=== PATIENT | male | born 1980 | race Caucasian/White ===

== ENCOUNTER 2019-06-22 03:37 | Inpatient (IN) | payer BC, OTHER, SELFPAY ==
[2019-06-22] VITALS (8 sets, daily range): BP systolic 128–160; BP diastolic 63–87; PULSE 97–122; RESP 14–20; TEMP 36.8–39.2; O2SAT 95–97; BMI 27.4
--- NOTE | ~2019-06-22 | CT_ITS ---
EXAMINATION: CT chest wo con DATE: 06/22/2019 04:57 INDICATION: Patient choked on food 2 days ago. Cough. TECHNIQUE: Computed tomography (CT) of the chest was performed without intravenous contrast. Automate d exposure control and iterative reconstruction technique were employed. Exam dose: 277.58 mGy-cm to paola exam DLP. COMPARISON: 06/22/2021 view chest FINDINGS: There is prominent patchy consolidation with air bronchograms at the superior segment left lower lobe primarily, most likely due to pneumonia. No bronchial occlusion is evident. There is minimal discoid atelectasis in the dependent right lower lobe. Normal heart size. No pericardial or pleural effusion. No thoracic aortic aneurysm. No hilar or media stinal mass lesion or lymphadenopathy is evident. Included upper abdominal structures are unremarkable. Included skeletal structures are unremarkable other than mild cupping of the superior vertebral endpl ates of T4 and T5, with minimal anterior wedging of T4, T5 and T6 vertebral bodies. These changes dina ear chronic.. IMPRESSION: Patchy consolidation involving superior segment of left lower lobe, likely due to pneumo naheed Reviewed, dictated and finalized at Location [facility]. Reviewed, dictated and finalized at location A. IVING ROOM CLERK IMPRESSION: Patchy consolidation involving superior segment of left lower lobe , likely due to pneumonia
--- NOTE | ~2019-06-22 | XR_ITS ---
XR chest 2V DATE: 06/22/2019 04:05 INDICATION: Cough TECHNIQUE: PA and lateral views COMPARISON: 02/15/2013 PA and lateral chest FINDINGS: There is patchy infiltrate of the superior segment of the left lower lobe. Follow-up radiog raph is recommended to ensure complete clearing, in order to exclude any pulmonary mass lesion or obs tructing endobronchial lesion. The lungs otherwise appear clear. No pleural effusion or pulmonary vascular congestion or pneumothora x. No hilar or mediastinal enlargement. Normal heart size. Old healed left clavicular shaft fracture deformity. IMPRESSION: Superior segment left lower lobe infiltrate Reviewed, dictated and finalized at location A. [employer]
--- NOTE | 2019-06-22 04:02 | ED.URI ---
HPI - URI/Sore Throat General Chief Complaint: Upper Respiratory Infection Stated Complaint: broccoli in my lungs/cough Time Seen by Provider: 06/22/19 03:47 Source: RN notes reviewed History of Present Illness HPI Narrative: Patient presents emergency department from home for cough and fever. Patient states symptoms began on Wednesday the . Patient states he was eating broccoli when he felt like he choked on the broccoli. Patient states since that time he has developed a temperature up to 103 as well as a persistent cough and body aches. He denies any sore throat, rhinorrhea abdominal pain vomiting or any other symptoms. Patient states he last took Tylenol at 1730 yesterday. He denies any other symptoms at this time Related Data Home Medications Medication Instructions Recorded Confirmed bupropion HCl mg PO 06/22/19 hydroxyzine HCl 06/22/19 Allergies Allergy/AdvReac Type Severity Reaction Status Date / Time No Known Allergies Allergy Verified 06/22/19 04:00 Review of Systems Review of Systems: Narrative: Gen.: Reports fever Eyes: Denies eye pain or visual change ENT: Denies congestion Respiratory: See HPI CV: Denies chest pain or palpitations GI: Denies abdominal pain nausea, emesis or diarrhea Musculoskeletal: Denies back pain or muscle pain Neuro: Denies numbness, tingling, weakness or focal weakness Skin: Denies rash Except as documented, all other systems reviewed and negative [facility] Past Medical History Medical History (Updated 06/22/19 @ 05:50 by Eugene Paez DO) Hypertension Family History Family History (Updated 06/11/16 @ 14:29 by DOCTOR UNKNOWN) Mother Family history of thyroid disease Family history of mental disorder Father Family history of cardiac disorder Other Carcinoma of colon Diabetes mellitus Family history of lung disease Family history of malignant neoplasm Hypertension Social History Social History Smoking status: Former smoker Second hand tobacco smoke exposure: Yes Smoking end date: 05/24/15 Alcohol intake: current Exam Narrative: Exam Narrative: APPEARANCE: No acute distress, nontoxic, resting in bed EYES: EOMI HEENT: Normocephalic, atraumatic, TMs clear bilaterally, nares patent, oral mucosa moist, no erythema or exudate posterior pharynx RESPIRATORY: No respiratory distress Clear to auscultation bilaterally with no rhonchi wheezing or rales. CARDIOVASCULAR: Regular rate and rhythm without murmurs rubs or gallops. ABDOMINAL: Soft, nontender, nondistended, no rebound or guarding MUSCULOSKELETAl: Moves all extremities. No clubbing, cyanosis or edema. NEURO: Awake and alert. Following commands, speech normal, no focal deficits SKIN:: Warm, dry. No rashes lesions or abrasions PSYCHIATRIC: Normal affect/mood, Course Course Emergency Course: Discussed with Dr. Vinson presentation work-up. Agrees with admission at this time Discussed with patient and family results of workup and diagnosis. Discussed need for admission. Patient and family understand and agree to current treatment plan Vital Signs Vital signs: Vital Signs Temperature 102.6 F H 06/22/19 03:53 Pulse Rate 122 H 06/22/19 03:53 Respiratory Rate 18 06/22/19 03:53 Blood Pressure 160/87 H 06/22/19 03:53 Pulse Oximetry 97 06/22/19 03:53 Temperature 101.2 F H 06/22/19 05:10 Pulse Rate 102 H 06/22/19 05:10 Respiratory Rate 14 06/22/19 05:10 Blood Pressure 134/70 06/22/19 05:10 Pulse Oximetry 95 06/22/19 05:10 MDM - URI/Sore Throat Lab Data Result diagrams: 06/22/19 04:17 06/22/19 04:17 Labs: Lab Results 06/22/19 06/22/19 06/22/19 Range/Units 04:17 04:17 04:17 WBC 9.2 (4.5-10.0) K/mm3 RBC 4.73 (4.6-6.20) M/mm3 Hgb 14.8 (14.0-18.0) g/dL Hct 43.0 (42.0-52.0) % MCV 90.9 (80-100) fl MCH 31.3 (26-34) pg MCHC 34.4 (32-
[2019-06-22] MEDS: LACTATED RINGERS 1,000 ML 999 ML IV CONT (04:24)
[2019-06-22 04:28] LABS: Basophils Absolute Auto 0.1 K/mm3 (0.0-0.1); Basophils Percent Auto 0.5 % (0.2-1.2); Eosinophils Absolute Auto 0.1 K/mm3 (0-0.3); Eosinophils Percent Auto 1.1 % (0-4.4); Hemoglobin 14.8 g/dL (14.0-18.0); Immature Granulocyte Absolute 0.03 K/mm3 (0.00-0.031); Immature Granulocyte Percent A 0.3 % (0-0.5); Lymphocytes Absolute Auto 1.17 K/mm3 (0.9-3.2); Lymphocytes Percent Auto 12.7 % (18.3-44.2); Mean Corpuscular HGB Conc 34.4 g/dl (32-36); Mean Corpuscular Hemoglobin 31.3 pg (26-34); Mean Corpuscular Volume 90.9 fl (80-100); Mean Platelet Volume 11.4 fl (7.4-10.4); Monocytes Absolute Auto 0.9 K/mm3 (0.1-0.6); Monocytes Percent Auto 9.8 % (2.6-8.5); Neutrophils Percent Auto 75.6 % (45.5-73.1); Platelet Count Result 152 k/mm3 (150-375); Red Blood Count 4.73 M/mm3 (4.6-6.20); White Blood Count 9.2 K/mm3 (4.5-10.0)
[2019-06-22 04:41] LABS: Alanine Aminotransferase 27 U/L (4-50); Albumin Level 4.7 g/dL (3.5-5.1); Alkaline Phosphatase 77 U/L (38-126); Aspartate Amino Transferase 25 U/L (17-59); Bilirubin,Total 0.5 mg/dL (0.2-1.3); Blood Urea Nitrogen 10 mg/dL (9-20); Calcium 9.3 mg/dL (8.4-10.2); Carbon Dioxide 27 mmol/L (22-30); Chloride 99 mmol/L (98-107); Estimated CRCL calculation 70 ml/min; Estimated Glomerular Filt Rate 57; Glucose 114 mg/dL (75-110); Potassium 3.7 mmol/L (3.4-5.0); Sodium 136 mmol/L (137-145)
[2019-06-22 04:42] LABS: Add Urine Microscopic? YES; Appearance Urine Clear (Clear); Bilirubin Urine Negative (Negative); Blood Urine 1+ (Negative); Color Urine Yellow (Yellow); Glucose Urine UA Negative (Negative); Ketones Urine Trace mg/dL (Negative); Leukocyte Esterase Ur Negative LEU/UL (Negative); Mucus Urine Rare /lpf; Nitrate Urine Negative (Negative); Protein Urine 2+ mg/dL (Negative); Specific Grav Ur 1.024 (1.001-1.035); Urobilinogen Urine Negative mg/dL (<2.0); WBC Urine 0-3 /hpf
[2019-06-22 04:50] LABS: Lactic Acid Reflex 0.9 mmol/L (0.7-2.1)
[2019-06-22] MEDS: metroNIDAZOLE 500 MG/ISO 100ML 500 MG/100 ML BAG 100 MG IVPB (06:14)
[2019-06-22] MEDS: SODIUM CHLORIDE 0.9% IV 1,000 ML 999 ML IV CONT (06:14)
--- NOTE | 2019-06-22 06:28 | ADMGEN ---
This patient, Miguel Aguilar, was admitted to 3 [facility] Surg Room 313-01. Patient/family oriented to hospital policies and general routines including ID bracelet, bed and alarms, visiting hours, pain management, procedures, bathroom and other care routines, personal items, smoking policy, room service/diet, and visiting hours. Valuables list has been completed. Information on how to activate the Rapid Response Team has been discussed. Patient/Family are encouraged to report perceived risks to care and to ask questions if they do not understand what they are told or what they should do.
--- NOTE | 2019-06-22 09:17 | PM.IMHP ---
H&P: HPI History of Present Illness Chief complaint: PNEUMONIA SUSPECT AASPIRATION,SEPSIS,RENAL INSUFFI Narrative: Date and Time of Service of History & Physical: June 22, 2019 at 8:55 a.m.. Date and Time of Placement in Observation Order: June 22, 2019 at 5:47 a.m. Chief Complaint: Fever, chills, body aches, pain in area of kidneys, cough. History of Present Illness: Miguel Aguilar is a 38 year old male with known PTSD, hyperlipidemia, hypertension and allergies to present to the emergency room early this morning with complaint of 2 day history of fever, chills, body aches and pain in the kidney area. Patient reports he had been feeling well until he felt as though he possibly aspirated either some broccoli or cauliflower during lunch on Wednesday, June 19, 2019 patient was at work when this occurred. He reports on Wednesday at noon he developed fever up to 102.5 with chills and sweats, body aches and pain in the kidney area. He denies any other urinary type symptoms. He reports he has also developed cough which is now productive of mucus. On patient's son recently did have diagnosis of influenza B but is improving. His daughters are healthy. He has had his influenza vaccine. No shortness of breath he does have tightness in his chest. He does report nausea last night but no vomiting. In the emergency room, findings were consistent with pneumonia with concern for possible aspiration pneumonia. He was also noted to have slight increase in creatinine. Patient does mention he began drinking more after noting the pain as kidney area. With his findings, he has been placed in observation for further evaluation and treatment. Review of Systems Review of Systems: All systems reviewed & are unremarkable except as noted in HPI and below Constitutional: Constitutional: Reports body ache(s), Reports chills and Reports fever(s) Eyes: Eyes: Denies blurry vision and Denies diplopia ENT: Denies nasal congestion, Denies nasal discharge and Denies sore throat Cardiovascular: Cardiovascular: Denies chest pain and Denies palpitations Respiratory: Respiratory: Reports chest congestion, Reports cough, Denies dyspnea and Denies wheezing Gastrointestinal: Gastrointestinal: Denies abdominal pain, Reports nausea and Denies vomiting Genitourinary: Genitourinary: Denies hematuria, Denies dysuria and Denies urinary frequency Musculoskeletal: Musculoskeletal: Reports myalgias Integumentary/Breasts: Skin/Breast: Denies rash Neurologic: Denies vertigo, Denies headache(s) and Denies numbness Psychiatric: Psychiatric: Reports anxiety (known PTSD) and Denies depression Endocrine: Endocrine: Reports no additional endocrine complaints Hematologic/Lymphatic: Hematologic/Lymphatic: Reports no additional hematologic/lymphatic complaints Allergic/Immunologic: Allergic/Immunologic: Reports no additional allergic/immunologic complaints PMFSH Past Medical History Medical History (Updated 06/22/19 @ 09:55 by Ashanti Cochran MD) Allergies Hyperlipidemia Hypertension PTSD (post-traumatic stress disorder) Surgical History Surgical History No significant past surgical history reports left hand/left finger injury Family History Family History Mother Family history of thyroid disease Hypertension Anxiety Father Family history of cardiac disorder aortic valve replacement Sibling Anxiety Social History Social History Social History: Patient is . 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 He smoked 1/2 to 2 packs of cigarettes daily between ages of [age]. Subsequently he did chew tobacco quitting 2 years ago and restarting and recently quitting again. He
[2019-06-22] MEDS: LACTATED RINGERS 1,000 ML 75 ML IV CONT (09:38)
--- NOTE | 2019-06-22 10:45 | PCRCNOTE ---
Window of time for administration has passed. See next scheduled administration.
[2019-06-22] MEDS: hydrOXYzine HCL 25 MG TABLET PO (11:20)
[2019-06-22] MEDS: ASPIRIN 81 MG ENTERIC TABLET PO (11:20)
[2019-06-22] MEDS: buPROPion HCL XL (24 HR) 150 MG TABCR 450 MG PO (11:20)
[2019-06-22] MEDS: FLUTICASONE PROPIONATE 0.05% NA SPR 16 GM BTL (*BKC) 1 SPRAY NASAL (11:20)
[2019-06-22] MEDS: IBUPROFEN 600 MG TABLET PO ×2 (11:21→16:56)
[2019-06-22] MEDS: ALBUTEROL SULFATE NEB 2.5 MG/0.5 ML INH 5 MG INHALATION (14:12)
[2019-06-22] MEDS: IPRATROPIUM BR 0.02% INH SOLN 0.5 MG/2.5 ML VIAL INHALATION (14:13)
[2019-06-22 16:59] LABS: Blood Urea Nitrogen 11 mg/dL (9-20); Calcium 8.8 mg/dL (8.4-10.2); Carbon Dioxide 26 mmol/L (22-30); Chloride 101 mmol/L (98-107); Estimated CRCL calculation 81 ml/min; Estimated Glomerular Filt Rate > 60; Glucose 98 mg/dL (75-110); Potassium 3.5 mmol/L (3.4-5.0); Sodium 135 mmol/L (137-145)
--- NOTE | 2019-06-22 18:30 | PM.DS ---
DS: Diagnosis Admitting Diagnosis Admitting Diagnosis: Sepsis, unspecified organism Discharge Diagnosis (1) Sepsis: Qualifiers: Sepsis acute organ dysfunction status: unspecified Sepsis type: sepsis due to unspecified organism Qualified Code(s): A41.9 - Sepsis, unspecified organism Code(s): A41.9 - Sepsis, unspecified organism Status: Acute (2) Aspiration pneumonia: Qualifiers: Aspiration pneumonia type: unspecified Laterality: left Lung location: lower lobe of lung Qualified Code(s): J69.0 - Pneumonitis due to inhalation of food and vomit Code(s): J69.0 - Pneumonitis due to inhalation of food and vomit Status: Acute (3) Acute renal failure: Qualifiers: Acute renal failure type: unspecified Qualified Code(s): N17.9 - Acute kidney failure, unspecified Code(s): N17.9 - Acute kidney failure, unspecified Status: Acute (4) Dehydration: Code(s): E86.0 - Dehydration Status: Acute (5) PTSD (post-traumatic stress disorder): Code(s): F43.10 - Post-traumatic stress disorder, unspecified Status: Acute (6) Hyperlipidemia: Qualifiers: Hyperlipidemia type: unspecified Qualified Code(s): E78.5 - Hyperlipidemia, unspecified Code(s): E78.5 - Hyperlipidemia, unspecified Status: Acute (7) Hypertension: Qualifiers: Hypertension type: essential hypertension Qualified Code(s): I10 - Essential (primary) hypertension Code(s): I10 - Essential (primary) hypertension Status: Acute DS: Summary Hospital Course Reason for hospitalization: Fever, chills, body aches, pain in area of kidneys, cough. Hospital Course: Date of Service of Discharge: June 22, 2019. History of Present Illness: Patient is a pleasant 38-year-old gentleman with known PTSD, hyperlipidemia, hypertension and allergies present to the emergency room via private vehicle early this morning with complaint of 2 day history of fever, chills, body aches and pain in the kidney area. He reports he had been feeling well until he felt as though he may have aspirated either some broccoli or cauliflower while eating his lunch at work on Wednesday, June 19, 2019. He subsequently noted fever up to 102.5 at noon on Thursday, June 20, 2019. He reports having chills and sweats, body aches, pain in the kidney area. He is now also developed cough which is productive of mucus. No other urinary symptoms. No nausea or vomiting. He did have his influenza vaccine. He does report his young son was recently diagnosed with influenza B but already improving. In the emergency room, he was found to have pneumonia with concern for aspiration pneumonia due to his incident on Wednesday. He did technically meet sepsis criteria and also had dehydration resulting in mild renal failure. As result, he was admitted for further evaluation and treatment. Course in Hospital: Patient was admitted to the medical floor where he remained for the duration of his stay. He did not require oxygen throughout his stay. He initially had fever but none after approximately 6:00 a.m. on the day of admission. He did have cough but not severe. Lung exam with slight decrease in breath sounds in the left lower lobe but otherwise clear. He had no wheezing. He was initially started on IV ceftriaxone and metronidazole through the emergency room but this was changed to IV Zosyn which she received throughout the day on 06/22/2019. He additionally was started on IV fluids with oral intake encouraged. Blood cultures were initiated in the emergency room. WBC was normal on admission. Initial creatinine was slightly elevated at 1.40 which was the result of dehydration. On re-evaluation the patient late on the afternoon of 06/22/2019, he was clinically for feeling much better and hopeful to go home. As result, BMP was repeated with creatinine improved to 1.20. Patient able to hydrate on his o
== END 2019-06-22 18:40 | disposition home or self-care (01) | DRG 871 ==
LOC: ANHED 05:50 → ANH3MEDSUR 05:54
PROVIDERS: Admitting Provider Internal Medicine; Emergency Provider Emergency Medicine; Visit Provider Hospitalist
DX: A41.9 Sepsis, unspecified organism (principal); J69.0 Pneumonitis due to inhalation of food and vomit; N17.9 Acute kidney failure, unspecified; E86.0 Dehydration; F43.10 Post-traumatic stress disorder, unspecified; E78.5 Hyperlipidemia, unspecified; I10 Essential (primary) hypertension
CPT/HCPCS: 36415; 71046; 71250; 80048; 80053; 81001; 83605; 85025; 87040; 87804; 94640; 96361; 96365; 96367; 96375; 99285; A9270; G0378; J0131; J0696; J2543; J7030; J7120

== ENCOUNTER 2021-11-10 09:52 | Emergency (ER) | payer OTHER, SELFPAY ==
--- NOTE | ~2021-11-10 | XR_ITS ---
EXAMINATION: XR ankle LT min 3V, XR heel LT min 2V DATE: 11/10/2021 10:15 INDICATION: Pain and bruising to the left heel and ankle post fall from ladder TECHNIQUE: 1.Anteroposterior, oblique, mortise, and lateral views of the left ankle were obtained. 2. Lateral and axial views of the left calcaneus were obtained. COMPARISON: None. FINDINGS: Alignment is normal. No fracture. Joint spaces are well maintained. No ankle joint effusion. Mild s oft tissue swelling about the lateral malleolus. There is also an ankle joint effusion with increased density bulging anteriorly from the tibiotalar joint line. IMPRESSION: 1. Left ankle joint effusion and soft tissue swelling about the lateral malleolus. No osseous abnorma lity at the left ankle or hindfoot. Reviewed, dictated and finalized at location B. IMPRESSION: 1. Left ankle joint effusion and soft tissue swelling about the lateral malleol us. No osseous abnormality at the left ankle or hindfoot.
[2021-11-10 09:57] VITALS: BP 140/95; PULSE 107; RESP 20; TEMP 36.7; O2SAT 96
--- NOTE | 2021-11-10 09:59 | ED.FALL ---
HPI - Fall General Chief Complaint: Extremity Injury, Lower Stated Complaint: ankle pain s/p fall from ladder Time Seen by Provider: 11/10/21 09:54 Source: RN notes reviewed History of Present Illness HPI Narrative: Patient presents emerged department from home for left ankle pain. Patient states that yesterday morning he was working on a ladder approximately 5 feet up when he became tripped up in the ladder and fell off the ladder. He states that all of his weight came down onto his left ankle he states has had pain in his left ankle as well as his heel since that time he denies striking her head or loss conscious denies any other trauma or injury states he took ibuprofen the pain last night denies any numbness or tingling in extremities Related Data Home Medications Medication Instructions Recorded Confirmed aspirin 81 mg tablet,delayed 81 mg PO DAILY 06/22/19 06/22/19 release (Adult Low Dose Aspirin) bupropion HCl 150 mg 24 hr tablet, 450 mg PO DAILY 06/22/19 06/22/19 extended release fluticasone propionate 50 1 spray intranasal BID 06/22/19 06/22/19 mcg/actuation nasal spray,suspension hydroxyzine HCl 25 mg tablet 25 mg PO DAILY ANXIETY 06/22/19 06/22/19 hydroxyzine HCl 25 mg tablet 25 mg PO TIDHS PRN Anxiety 06/22/19 06/22/19 olanzapine 10 mg tablet 2.5 mg PO HS ptsd 06/22/19 06/22/19 Allergies Allergy/AdvReac Type Severity Reaction Status Date / Time No Known Allergies Allergy Verified 06/22/19 06:40 Review of Systems Review of Systems: Gen.: Denies fevers or chills Eyes: Denies eye pain or visual change ENT: Denies facial pain Respiratory: Denies shortness of breath CV: Denies chest pain GI: Denies abdominal pain nausea, emesis Musculoskeletal: Denies back pain or muscle pain reports ankle pain Neuro: Denies numbness, tingling, weakness or focal weakness Skin: Denies rash Except as documented, all other systems reviewed and negative PMFSH Past Medical History Medical History Allergies Hyperlipidemia Hypertension PTSD (post-traumatic stress disorder) Surgical History Surgical History No significant past surgical history reports left hand/left finger injury Family History Family History Mother Family history of thyroid disease Hypertension Anxiety Father Family history of cardiac disorder aortic valve replacement Sibling Anxiety Social History Social History Social History: Patient is . 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 He smoked 1/2 to 2 packs of cigarettes daily between ages of [age]. Subsequently he did chew tobacco quitting 2 years ago and restarting and recently quitting again. He does report drinking either beer or whiskey 2-3 times per week. He is a full code. He does have 3 small children. 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
== END 2021-11-10 11:43 | disposition home or self-care (01) ==
PROVIDERS: Emergency Provider Emergency Medicine
DX: S93.402A Sprain of unspecified ligament of left ankle, initial encounter (principal); E78.5 Hyperlipidemia, unspecified; I10 Essential (primary) hypertension; Z79.82 Long term (current) use of aspirin; F43.10 Post-traumatic stress disorder, unspecified; Z87.891 Personal history of nicotine dependence; W11.XXXA Fall on and from ladder, initial encounter
CPT/HCPCS: 73610; 73650; 99283

== ENCOUNTER 2022-08-06 01:14 | Emergency (ER) | payer OTHER, SELFPAY ==
[2022-08-06] VITALS (14 sets, daily range): BP systolic 136–1667; BP diastolic 12–101; PULSE 69–102; RESP 9–30; TEMP 36.9; O2SAT 93–100
--- NOTE | ~2022-08-06 | XR_ITS ---
Clinical Indication: Chest pain PA and lateral views of the chest: Comparison: 06/22/2019 Findings: The lungs are clear, without evidence of focal consolidation or pleural effusion. Cardiome diastinal silhouette is within normal limits. Bones and soft tissues are unremarkable. Impression: Normal chest. Reviewed, dictated and finalized at location . Impression: Normal chest.
--- NOTE | 2022-08-06 01:18 | ECG_ITS ---
Measurements Intervals [place] Rate: 97 P: 68 VA: 168 QRS: 81 QRSD: 106 T: 17 QT: 306 QTc: 389 Interpretive Statements SINUS RHYTHM DELAYED PRECORDIAL R/S TRANSITION NONSPECIFIC ST & T-WAVE ABNORMALITY- INFERIOR LEADS BASELINE ARTIFACT- I, II, III BORDERLINE ECG NO PREVIOUS ECG AVAILABLE FOR COMPARISON Electronically Signed On 08-06-2022 8:05:49 CDT by Manuel Thakur D.O.
[2022-08-06 01:35] LABS: Basophils Absolute Auto 0.1 K/mm3 (0.0-0.1); Basophils Percent Auto 0.8 % (0.2-1.2); Eosinophils Absolute Auto 0.5 K/mm3 (0-0.3); Eosinophils Percent Auto 4.5 % (0-4.4); Hematocrit 48.6 % (42.0-52.0); Hemoglobin 16.8 g/dL (14.0-18.0); Immature Granulocyte Absolute 0.05 K/mm3 (0.00-0.031); Immature Granulocyte Percent A 0.5 % (0-0.5); Lymphocytes Absolute Auto 3.76 K/mm3 (0.9-3.2); Lymphocytes Percent Auto 35.5 % (18.3-44.2); Mean Corpuscular HGB Conc 34.6 g/dl (32-36); Mean Corpuscular Hemoglobin 33.3 pg (26-34); Mean Corpuscular Volume 96.2 fl (80-100); Mean Platelet Volume 10.8 fl (7.4-10.4); Monocytes Percent Auto 9.8 % (2.6-8.5); Neutrophils Absolute Auto 5.2 K/mm3 (1.3-6.7); Neutrophils Percent Auto 48.9 % (45.5-73.1); Platelet Count Result 258 k/mm3 (150-375); Red Blood Count 5.05 M/mm3 (4.6-6.20); Red Cell Distribution Width 13.3 % (11.5-14.5); White Blood Count 10.6 K/mm3 (4.5-10.0)
[2022-08-06 01:46] LABS: Prothrombin Time 12.4 Seconds (11.1-14.7)
[2022-08-06 01:47] LABS: Partial Thromboplastin Time 27.3 SECONDS (22.3-36.8)
[2022-08-06 01:50] LABS: Alanine Aminotransferase 69 U/L (6-50); Albumin Level 4.6 g/dL (3.5-5.1); Alkaline Phosphatase 87 U/L (38-126); Anion Gap 7 mmol/L (8-16); Aspartate Amino Transferase 43 U/L (17-59); Bilirubin,Total 0.6 mg/dL (0.2-1.3); Blood Urea Nitrogen 12 mg/dL (9-20); Calcium 9.1 mg/dL (8.4-10.2); Carbon Dioxide 26 mmol/L (22-30); Chloride 104 mmol/L (98-107); Estimated CRCL calculation 84 ml/min; Estimated Glomerular Filt Rate > 60; Glucose 96 mg/dL (65-110); Lipase 167 U/L (23-300); Potassium 4.2 mmol/L (3.4-5.0); Sodium 137 mmol/L (137-145)
[2022-08-06 02:01] LABS: Troponin I < 0.012 ng/mL (0.000-0.034)
[2022-08-06] MEDS: IBUPROFEN 400 MG TABLET 800 MG PO (02:51)
[2022-08-06] MEDS: ACETAMINOPHEN 500 MG TABLET 1000 MG PO (02:52)
--- NOTE | 2022-08-06 03:32 | ED.GENADULT ---
HPI - General Adult General Chief complaint: Chest Pain Stated complaint: chest pain Time Seen by Provider: 08/06/22 01:48 History of Present Illness HPI narrative: This is a 42-year-old male presenting ED with a chief complaint chest pain. Patient said that when he laid down to bed at approximately midnight he started to feel and achy /dull/ squeezing pain in the center of his chest just left of his sternum that is nonradiating, 4/10 in intensity that comes and goes. Patient says he has never experienced pain like this before there are no exacerbating or alleviating factors. Was associated with some lightheadedness. There is no vomiting diaphoresis exertion radiation component. Patient denies fever chills cough, abdominal pain shortness of breath urinary symptoms or GI symptoms. The patient has significant history with chest pain. He has been diagnosed with pleurisy ,GERD, has undergone a stress test which was normal and had multiple ER visits without a definitive cause. Patient denies any other complaints at this time. Related Data Home Medications Medication Instructions Recorded Confirmed aspirin 81 mg tablet,delayed 81 mg PO DAILY 06/22/19 06/22/19 release (Adult Low Dose Aspirin) bupropion HCl 150 mg 24 hr tablet, 450 mg PO DAILY 06/22/19 06/22/19 extended release fluticasone propionate 50 1 spray intranasal BID 06/22/19 06/22/19 mcg/actuation nasal spray,suspension hydroxyzine HCl 25 mg tablet 25 mg PO DAILY ANXIETY 06/22/19 06/22/19 hydroxyzine HCl 25 mg tablet 25 mg PO TIDHS PRN Anxiety 06/22/19 06/22/19 olanzapine 10 mg tablet 2.5 mg PO HS ptsd 06/22/19 06/22/19 Allergies Allergy/AdvReac Type Severity Reaction Status Date / Time No Known Allergies Allergy Verified 08/06/22 01:28 [facility] Past Medical History Medical History Allergies Hyperlipidemia Hypertension PTSD (post-traumatic stress disorder) Surgical History Surgical History No significant past surgical history reports left hand/left finger injury Family History Family History Mother Family history of thyroid disease Hypertension Anxiety Father Family history of cardiac disorder aortic valve replacement Sibling Anxiety Social History Social History Social History: Patient is . 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 He smoked 1/2 to 2 packs of cigarettes daily between ages of [age]. Subsequently he did chew tobacco quitting 2 years ago and restarting and recently quitting again. He does report drinking either beer or whiskey 2-3 times per week. He is a full code. He does have 3 small children. 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 Head: atraumatic. EYES: EOMI, NOSE: Atraumatic NECK: Trachea midline RESPIRATORY: No increased rate of breathing clear to auscultation bilaterally CARDIOVASCULAR: RRR, no peripheral edema ABDOMINAL: Non-distended soft no guarding or rebound MUSCULOSKELETAl: No obvious deformities NEURO: Alert. Moving 4/4 extremities SKIN:: Warm, dry. Normal color PSYCHIATRIC: N
[2022-08-06 05:06] LABS: Troponin I < 0.012 ng/mL (0.000-0.034)
== END 2022-08-06 05:18 | disposition home or self-care (01) ==
PROVIDERS: Emergency Provider Emergency Medicine; PCP Family Medicine
DX: R07.9 Chest pain, unspecified (principal); E78.5 Hyperlipidemia, unspecified; I10 Essential (primary) hypertension; K21.9 Gastro-esophageal reflux disease without esophagitis; F43.10 Post-traumatic stress disorder, unspecified; Z79.82 Long term (current) use of aspirin; Z87.891 Personal history of nicotine dependence; R94.31 Abnormal electrocardiogram [ECG] [EKG]
CPT/HCPCS: 36415; 71046; 80053; 83690; 84484; 85025; 85610; 85730; 93005; 99284; A9270

== ENCOUNTER 2023-10-24 12:28 | Emergency (ER) | payer OTHER, SELFPAY ==
[2023-10-24] VITALS (11 sets, daily range): BP systolic 146–168; BP diastolic 97–123; PULSE 95–106; RESP 9–20; TEMP 36.8; O2SAT 95–100
--- NOTE | ~2023-10-24 | XR_ITS ---
EXAMINATION: XR chest 2V 10/24/2023 12:54 INDICATION: Chest pain PROCEDURE: 2 view chest COMPARISON: 08/06/2022 FINDINGS: The lungs are clear. The cardiomediastinal silhouette is within normal limits. There are no pleural effusions. There is no pneumothorax suspected. IMPRESSION: 1: NO ACUTE CARDIOPULMONARY DISEASE. Reviewed, dictated and finalized at location B.
--- NOTE | 2023-10-24 12:30 | ECG_ITS ---
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 Measurements Intervals [place] Rate: 107 P: 59 [place]: 166 QRS: 66 QRSD: 97 T: 17 QT: 320 QTc: 427 Interpretive Statements SINUS TACHYCARDIA NONSPECIFIC T-WAVE ABNORMALITY ABNORMAL RHYTHM ECG No previous ECG available for comparison Electronically Signed On 10-25-2023 07:17:04 CDT by Ritesh Valenzuela M.D.
--- NOTE | 2023-10-24 12:43 | ED.CHESTPAIN ---
HPI - Chest Pain General Chief Complaint: Chest Pain <Rigo Lance MD - Last Filed: 10/24/23 12:51> Stated Complaint: heart problems <Rigo Lance MD - Last Filed: 10/24/23 12:51> Time Seen by Provider: 10/24/23 12:36 <Rigo Lance MD - Last Filed: 10/24/23 12:51> Source: patient <Rigo Lance MD - Last Filed: 10/24/23 12:51> Mode of arrival: ambulatory <Rigo Lance MD - Last Filed: 10/24/23 12:51> Limitations: no limitations <Rigo Lance MD - Last Filed: 10/24/23 12:51> History of Present Illness HPI narrative: 43-year-old with a history of hypertension, anxiety, PTSD here with a complaint of sudden onset of midsternal chest pain started about 11 30 this afternoon. He states the pain is steady in nature patient states that he took his blood pressure medicine which is lisinopril and 2 tablets of hydroxyzine thinking that it could be anxiety however he still continues to have pain. No previous history of CAD. Also complains of mild shortness of breath. Denies any nausea or vomiting. No history of fever or chills or cough. <Rigo Lance MD - Last Filed: 10/24/23 12:51> MD complaint: chest pain <Rigo Lance MD - Last Filed: 10/24/23 12:51> Pain radiation: none <Rigo Lance MD - Last Filed: 10/24/23 12:51> Severity: moderate <Rigo Lance MD - Last Filed: 10/24/23 12:51> Quality: heaviness <Rigo Lance MD - Last Filed: 10/24/23 12:51> Relieving factors: nothing <Rigo Lance MD - Last Filed: 10/24/23 12:51> Exacerbating factors: nothing <Rigo Lance MD - Last Filed: 10/24/23 12:51> Risk Factors Coronary artery disease risk factors: hypertension <Rigo Lance MD - Last Filed: 10/24/23 12:51> Thoracic aortic dissection risk factors: none <Rigo Lance MD - Last Filed: 10/24/23 12:51> Related Data Home Medications: Home Medications Medication Instructions Recorded Confirmed aspirin 81 mg tablet,delayed 81 mg PO DAILY 06/22/19 06/22/19 release (Adult Low Dose Aspirin) bupropion HCl 150 mg 24 hr tablet, 450 mg PO DAILY 06/22/19 06/22/19 extended release fluticasone propionate 50 1 spray intranasal BID 06/22/19 06/22/19 mcg/actuation nasal spray,suspension hydroxyzine HCl 25 mg tablet 25 mg PO DAILY ANXIETY 06/22/19 06/22/19 hydroxyzine HCl 25 mg tablet 25 mg PO TIDHS PRN Anxiety 06/22/19 06/22/19 olanzapine 10 mg tablet 2.5 mg PO HS ptsd 06/22/19 06/22/19 <Rigo Lance MD - Last Filed: 10/24/23 12:51> Allergies/Adverse Reactions: Allergies Allergy/AdvReac Type Severity Reaction Status Date / Time No Known Allergies Allergy Verified 08/06/22 01:28 <Rigo Lance MD - Last Filed: 10/24/23 12:51> Review of Systems Review of Systems: All systems reviewed & are unremarkable except as noted in HPI and below <Rigo Lance MD - Last Filed: 10/24/23 12:51> Constitutional: Constitutional: Reports no additional constitutional complaints <Rigo Lance MD - Last Filed: 10/24/23 12:51> Eyes: Eyes: Reports no additional eye complaints <Rigo Lance MD - Last Filed: 10/24/23 12:51> ENT: Reports system reviewed and no additional complaints, except as documented <Rigo Lance MD - Last Filed: 10/24/23 12:51> Cardiovascular: Cardiovascular: Reports as per HPI <Rigo Lance MD - Last Filed: 10/24/23 12:51> Respiratory: Respiratory: Reports no additional respiratory complaints <Rigo Lance MD - Last Filed: 10/24/23 12:51> Gastrointestinal: Gastrointestinal: Reports no additional gastrointestinal complaints <Rigo Lance MD - Last Filed: 10/24/23 12:51> Musculoskeletal: Musculoskeletal: Reports no additional musculoskeletal complaints <Rigo Lance MD - Last Filed: 10/24/23 12:51> Integumentary/Breasts: Skin/Breast: Reports system reviewed and no additional complaints, except as docu <Rigo Lance MD - Last Filed: 10/23
[2023-10-24 12:53] LABS: Basophils Absolute Auto 0.1 K/mm3 (0.0-0.1); Basophils Percent Auto 0.6 % (0.2-1.2); Eosinophils Absolute Auto 0.4 K/mm3 (0-0.3); Eosinophils Percent Auto 5.1 % (0-4.4); Hemoglobin 19.2 g/dL (14.0-18.0); Immature Granulocyte Absolute 0.02 K/mm3 (0.00-0.031); Immature Granulocyte Percent A 0.3 % (0-0.5); Lymphocytes Absolute Auto 2.99 K/mm3 (0.9-3.2); Mean Corpuscular HGB Conc 35.6 g/dl (32-36); Mean Corpuscular Hemoglobin 33.1 pg (26-34); Mean Corpuscular Volume 93.1 fl (80-100); Mean Platelet Volume 11.3 fl (7.4-10.4); Monocytes Absolute Auto 0.9 K/mm3 (0.1-0.6); Monocytes Percent Auto 11.7 % (2.6-8.5); Neutrophils Absolute Auto 3.5 K/mm3 (1.3-6.7); Neutrophils Percent Auto 44.3 % (45.5-73.1); Platelet Count Result 226 k/mm3 (150-375); Red Cell Distribution Width 12.8 % (11.5-14.5); White Blood Count 7.9 K/mm3 (4.5-10.0)
[2023-10-24 13:03] LABS: Prothrombin Time 13.4 Seconds (11.1-14.7)
[2023-10-24 13:04] LABS: Partial Thromboplastin Time 27.2 Seconds (22.3-36.8)
[2023-10-24 13:09] LABS: Alanine Aminotransferase 81 U/L (6-50); Albumin Level 4.9 g/dL (3.5-5.1); Alkaline Phosphatase 95 U/L (38-126); Anion Gap 9 mmol/L (4-12); Aspartate Amino Transferase 55 U/L (17-59); Bilirubin,Total 1.1 mg/dL (0.2-1.3); Blood Urea Nitrogen 13 mg/dL (9-20); Calcium 9.1 mg/dL (8.4-10.2); Carbon Dioxide 23 mmol/L (22-30); Chloride 105 mmol/L (98-107); Estimated Glomerular Filt Rate > 60; Glucose 107 mg/dL (65-110); Lipase 138 U/L (23-300); Sodium 137 mmol/L (137-145)
[2023-10-24] MEDS: ASPIRIN 81 MG CHEWABLE TABLET 324 MG PO (13:15)
[2023-10-24 13:16] LABS: Troponin I < 0.012 ng/mL (0.000-0.034)
--- NOTE | 2023-10-24 16:22 | ECG_ITS ---
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 Measurements Intervals [place] Rate: 92 P: 54 MT: 173 QRS: 56 QRSD: 100 T: 33 QT: 332 QTc: 412 Interpretive Statements SINUS RHYTHM POOR R-WAVE PROGRESSION ABNORMAL ECG Compared to ECG 10/24/2023 12:33:27 NO SIGNIFICANT CHANGE Electronically Signed On 10-25-2023 07:22:30 CDT by Ritesh Valenzuela M.D.
[2023-10-24 16:41] LABS: Troponin I < 0.012 ng/mL (0.000-0.034)
== END 2023-10-24 17:06 | disposition home or self-care (01) ==
PROVIDERS: Family Medicine; Emergency Provider Emergency Medicine
DX: R07.9 Chest pain, unspecified (principal); R00.0 Tachycardia, unspecified; E78.5 Hyperlipidemia, unspecified; I10 Essential (primary) hypertension; F43.10 Post-traumatic stress disorder, unspecified
CPT/HCPCS: 36415; 71046; 80053; 83690; 84484; 85025; 85610; 85730; 93005; 99284; A9270

== ENCOUNTER 2023-11-22 18:41 | Emergency (ER) | payer OTHER, SELFPAY ==
--- NOTE | ~2023-11-22 | CT_ITS ---
EXAMINATION: CT abdomen pelvis w con DATE: 11/22/2023 21:12 INDICATION: ABDOMINAL PAIN TECHNIQUE: Computed tomography (CT) of the abdomen and pelvis was performed with 100 mL Omnipaque-350 intravenous contrast. Automated exposure control and iterative reconstruction technique were employe d. The dose-length product was 665.36 mGy-cm. COMPARISON: None. FINDINGS: Lower thorax: Unremarkable Liver: Normal. Biliary/Gallbladder: Gallbladder is normal. No bile duct dilation. Pancreas: No mass or duct dilation. Spleen: Normal. Adrenals:No mass. Kidneys: No suspicious mass, obstructing stone, or hydronephrosis. GI tract: No small or large bowel dilation. Normal appendix. Mesentery/Peritoneum: No ascites, mass, or free air. Retroperitoneum: No mass. Pelvis: Pelvic organs are within normal limits. Soft Tissues: Soft tissues and body wall unremarkable. Bones: No acute osseous finding. IMPRESSION: No acute abdominopelvic process detected. Reviewed, dictated and finalized at location K.
[2023-11-22 18:42] VITALS: BP 147/110; PULSE 113; RESP 17; TEMP 36.4; O2SAT 100
--- NOTE | 2023-11-22 20:24 | ED.ABDPAIN ---
HPI - Abdominal Pain General Chief Complaint: Abdominal Pain Stated Complaint: ABD pain Time Seen by Provider: 11/22/23 20:23 Source: patient Mode of arrival: ambulatory Limitations: no limitations Related Data Home Medications Medication Instructions Recorded Confirmed aspirin 81 mg tablet,delayed 81 mg PO DAILY 06/22/19 06/22/19 release (Adult Low Dose Aspirin) bupropion HCl 150 mg 24 hr tablet, 450 mg PO DAILY 06/22/19 06/22/19 extended release fluticasone propionate 50 1 spray intranasal BID 06/22/19 06/22/19 mcg/actuation nasal spray,suspension hydroxyzine HCl 25 mg tablet 25 mg PO DAILY ANXIETY 06/22/19 06/22/19 hydroxyzine HCl 25 mg tablet 25 mg PO TIDHS PRN Anxiety 06/22/19 06/22/19 olanzapine 10 mg tablet 2.5 mg PO HS ptsd 06/22/19 06/22/19 Allergies Allergy/AdvReac Type Severity Reaction Status Date / Time No Known Allergies Allergy Verified 11/22/23 20:37 Review of Systems Review of Systems: All systems reviewed & are unremarkable except as noted in HPI and below PMFSH Past Medical History Medical History Allergies Hyperlipidemia Hypertension PTSD (post-traumatic stress disorder) Surgical History Surgical History No significant past surgical history reports left hand/left finger injury Family History Family History Mother Family history of thyroid disease Hypertension Anxiety Father Family history of cardiac disorder aortic valve replacement Sibling Anxiety Social History Social History Social History: Patient is . 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 He smoked 1/2 to 2 packs of cigarettes daily between ages of [age]. Subsequently he did chew tobacco quitting 2 years ago and restarting and recently quitting again. He does report drinking either beer or whiskey 2-3 times per week. He is a full code. He does have 3 small children. Smoking packs per day: 2 Smoking cigarettes per day: 40.0 Years smoked: 8 Smoking pack-years: 16.00 Smoking status: Former smoker Tobacco type: cigarettes Smokeless tobacco user: other Second hand tobacco smoke exposure: Yes Smoking end date: 05/24/15 Alcohol intake: current Drinks per week: 7 Substance use: never Living arrangements: with family Occupation/Education: occupation Additional occupation/education comments: [employer] traffic ii manager Gender identity (if verbalized by the patient): Male Spiritual care concerns: No Agree to blood products: Yes Exam Narrative: General appearance: Well-developed, well-nourished Skin: Normal color Head: Normocephalic, nontraumatic Eyes: Clear conjunctiva ENT: Oropharynx normal, ears normal, nose normal Neck: Supple, nontender Chest and respiratory: Airway patent, no respiratory distress, no accessory muscle use Heart: Regular rate/rhythm Abdomen: Soft, nontender, no organomegaly, quiet bowel sounds Vascular: Normal peripheral pulses, normal capillary refill. 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
[2023-11-22 20:34] VITALS: BP 155/97; PULSE 88; RESP 16; O2SAT 100
[2023-11-22] MEDS: SODIUM CHLORIDE 0.9% IV 1,000 ML 999 ML IV CONT (20:35)
[2023-11-22 20:40] LABS: Basophils Absolute Auto 0.1 K/mm3 (0.0-0.1); Basophils Percent Auto 0.5 % (0.2-1.2); Eosinophils Absolute Auto 0.3 K/mm3 (0-0.3); Eosinophils Percent Auto 2.8 % (0-4.4); Hemoglobin 18.2 g/dL (14.0-18.0); Immature Granulocyte Absolute 0.05 K/mm3 (0.00-0.031); Immature Granulocyte Percent A 0.5 % (0-0.5); Lymphocytes Absolute Auto 2.48 K/mm3 (0.9-3.2); Lymphocytes Percent Auto 25.1 % (18.3-44.2); Mean Corpuscular HGB Conc 35.7 g/dl (32-36); Mean Corpuscular Hemoglobin 33.3 pg (26-34); Mean Corpuscular Volume 93.2 fl (80-100); Mean Platelet Volume 10.9 fl (7.4-10.4); Monocytes Percent Auto 9.7 % (2.6-8.5); Neutrophils Absolute Auto 6.1 K/mm3 (1.3-6.7); Neutrophils Percent Auto 61.4 % (45.5-73.1); Platelet Count Result 207 k/mm3 (150-375); Red Blood Count 5.47 M/mm3 (4.6-6.20); Red Cell Distribution Width 12.6 % (11.5-14.5); White Blood Count 9.9 K/mm3 (4.5-10.0)
[2023-11-22 20:51] LABS: Alanine Aminotransferase 89 U/L (6-50); Alkaline Phosphatase 100 U/L (38-126); Anion Gap 9 mmol/L (4-12); Aspartate Amino Transferase 52 U/L (17-59); Bilirubin,Total 0.8 mg/dL (0.2-1.3); Blood Urea Nitrogen 13 mg/dL (9-20); Calcium 9.5 mg/dL (8.4-10.2); Carbon Dioxide 25 mmol/L (22-30); Chloride 104 mmol/L (98-107); Estimated CRCL calculation 66 ml/min; Estimated Glomerular Filt Rate 56; Glucose 92 mg/dL (65-110); Lipase 85 U/L (23-300); Potassium 3.9 mmol/L (3.4-5.0); Sodium 138 mmol/L (137-145)
[2023-11-22 21:22] LABS: Appearance Urine Clear (Clear); Bilirubin Urine Negative (Negative); Blood Urine Negative (Negative); Color Urine Yellow (Yellow); Glucose Urine UA Negative (Negative); Ketones Urine 1+ mg/dL (Negative); Leukocyte Esterase Ur Negative LEU/UL (Negative); Nitrate Urine Negative (Negative); Protein Urine Negative (Negative); Specific Grav Ur 1.014 (1.001-1.035); Urobilinogen Urine 0.2 mg/dL (<2.0); pH Urine 5.5 (5.0-9.0)
[2023-11-22 21:37] LABS: Add Urine Microscopic? NO
[2023-11-22 21:48] VITALS: BP 159/109; PULSE 93; RESP 16; TEMP 36.3; O2SAT 99
== END 2023-11-22 21:50 | disposition home or self-care (01) ==
PROVIDERS: Student in an Organized Health Care Education/Training Program; Emergency Provider Emergency Medicine
DX: R10.13 Epigastric pain (principal); E78.5 Hyperlipidemia, unspecified; I10 Essential (primary) hypertension; Z87.891 Personal history of nicotine dependence
CPT/HCPCS: 36415; 74177; 80053; 81003; 83690; 85025; 96360; 99284; J7030; Q9967

== ENCOUNTER 2024-12-22 18:42 | Emergency (ER) | payer OTHER, SELFPAY ==
--- NOTE | ~2024-12-22 | XR_ITS ---
EXAMINATION: XR chest 2V Exam Date/Time: 12/22/2024 19:14 CDT HISTORY: chest pain Comparison: 10/24/2023. RESULT: Lines, tubes, and devices: None. Lungs and pleura: Clear. Cardiomediastinal silhouette: Stable. Other: No acute osseous or upper abdominal finding. IMPRESSION: No acute cardiopulmonary process. Reviewed, dictated and finalized at location K.
--- NOTE | 2024-12-22 19:01 | ECG_ITS ---
Test Date: 2024-12-22 22:46:30 Measurements Intervals [place] Rate: 91 P: 50 MI: 181 QRS: 49 QRSD: 106 T: 15 QT: 352 QTc: 434 Interpretive Statements SINUS RHYTHM DELAYED PRECORDIAL R/S TRANSITION BORDERLINE ECG Compared to ECG 10/24/2023 16:27:17 HEART RATE HAS DECREASED Electronically Signed On 12-23-2024 07:38:31 CDT by Manuel Thakur D.O.
[2024-12-22 19:32] VITALS: BP 155/102; PULSE 107; RESP 13; TEMP 36.6; O2SAT 97
[2024-12-22 19:35] LABS: Hematocrit 47.7 % (42.0-52.0); Hemoglobin 16.4 g/dL (14.0-18.0); Immature Granulocyte Percent A 0.5 % (0-0.5); Lymphocytes Absolute Auto 2.62 K/mm3 (0.9-3.2); Mean Corpuscular HGB Conc 34.4 g/dl (32-36); Mean Corpuscular Hemoglobin 31.4 pg (26-34); Mean Corpuscular Volume 91.4 fl (80-100); Nucleated Red Blood Cells Absolute Auto 0.000 K/mm3 (0.0-0.012); Nucleated Red Blood Cells Perc 0.0 % (0.0-0.2); Platelet Count Result 215 k/mm3 (150-375); Red Blood Count 5.22 M/mm3 (4.6-6.20); White Blood Count 8.0 K/mm3 (4.5-10.0)
[2024-12-22 19:42] VITALS: PULSE 109
[2024-12-22 19:43] VITALS: O2SAT 99
[2024-12-22 19:45] LABS: INR 1.0; Prothrombin Time 13.0 Seconds (11.1-14.7)
[2024-12-22 19:47] LABS: Alanine Aminotransferase 80 U/L (6-50); Albumin Level 4.5 g/dL (3.5-5.1); Alkaline Phosphatase 80 U/L (38-126); Anion Gap 5 mmol/L (4-12); Aspartate Amino Transferase 48 U/L (17-59); Bilirubin,Total 0.5 mg/dL (0.2-1.3); Blood Urea Nitrogen 13 mg/dL (9-20); Calcium 9.1 mg/dL (8.4-10.2); Carbon Dioxide 22 mmol/L (22-30); Chloride 105 mmol/L (98-107); Estimated CRCL calculation 91 ml/min; Estimated Glomerular Filt Rate > 60; Glucose 144 mg/dL (65-110); Lipase 244 U/L (23-300); Partial Thromboplastin Time 26.5 Seconds (22.3-36.8); Potassium 3.4 mmol/L (3.4-5.0); Sodium 132 mmol/L (137-145); Total Protein 7.5 g/dL (6.3-8.2)
[2024-12-22 19:57] LABS: Troponin I < 0.012 ng/mL (0.000-0.034)
--- OUTSIDE RECORDS SUMMARY | 2024-12-22 20:07 | XMS_ITS | Encounter Summary ---
Author Name [facility] ([place]) Organization [facility] ([place]) Address [address] [place] [address] Care Team Providers Care Senior Network Systems Engineer Name Role Phone UIR GALINDO Primary Care Provider Unavailabl e Insurance Providers: All historical and current Section Date Range: From patient's date of to the date document was created. This section includes the names of all active insurance providers for the patient. Insurance Provider Type of Coverage Plan Name Start of Policy Coverage End of Policy Coverage Group Number Member ID Insurance Provider's Telephone Number Policy Carolina's Name Patient's Relationship to Policy [place] BC [place] F[place] PREFERRED PROVIDER ORGANIZAT ION (PPO) FEP-B ASIC- PPO May 24, 2011 [id number] HELEN JIMENEZ PATIENT CAREMARK ([id number]) PRESCRIPT ION FEP May 24, 2011 [id number] HELEN JIMENEZ PATIENT Selected Encounter This section includes the information on record at [place] for the Encounter. Date/Time Encounter Type Encounter Description Reason Pro vider Source Nov 01, 2024 08:00 AM OFFICE O/P EST MOD 30 MIN GASTROENTEROLOGY ICD-10-CM K21.9 Gastro-esophagea l reflux disease without esophagitis ROBERT GOVEA Encounter Template Text not used by [place] Assessments - Encounter Diagnoses This section includes the primary and secondary diagnoses documented for the Encounter. Date/Time Primary/Secondary Diagnosis Diagnosis Name Provider Source Nov 02, 2024 08:44 PM PRIMARY Gastro-esophageal reflux disease without esophagitis ALFONSOJARROD KOEHLER [facility] Nov 02, 2024 08:44 PM SECONDARY Change in bowel habit ALFONSO,JARROD Garret [facility] Nov 02, 2024 08:44 PM SECONDARY Family history of malignant neoplasm of digestive organs ALFONSOJARROD KOEHLER [facility] Plan of Treatment: Future Appointments (+ 6 months) and Future Tests (+/- 45 days) The Plan of Treatment section includes future care activities for the patient from all [place] [facility]. This section includes future appointments and future orders which are active, pending or scheduled. Future Appointments This section includes appointments that were scheduled to occur 6 months from the date of the Encounter, up to a maximum of 20 appointments. The data comes from all [place] treatment facilities. Appointment Date/Time Appointment Type Appointme nt Facility Name Dec 20, 2024 01:30 PM AMBULATORY - MEDICINE [facility] Dec 20, 2024 02:00 PM AMBULATORY - MEDICINE [facility] Feb 05, 2025 02:30 PM AMBULATORY - SURGERY . L [facility] Feb 26, 2025 10:30 AM AMBULATORY - NONE [facility] Apr 12, 2025 01:00 PM AMBULATORY - MEDICINE [facility] Apr 12, 2025 01:30 PM AMBULATORY - MEDICINE [facility] Vital Signs: All taken on the encounter date This section contains inpatient and outpatient Vital Signs collected on the date of the Encounter. Date/Time Temperature Pulse Blood Pressure Respiratory Rate SP02 Pain Height Weight Body Mass Index Source Nov 01, 2024 07:40 AM 97.5 84 129/88 16 97 0 221.8 31 [facility] Encounter Notes: All associated encounter notes This section contains the clinical notes associated to the Encounter. Date/Time Encounter Note(s) Provider Source Nov 01, 2024 08:13 AM GASTROENTEROLOGY O UTPATIENT NOTE: LOCAL TITLE: GASTROENTEROLOGY OUTPATIENT FOLLOW UP ST STANDARD TITLE: GASTROENTEROLOGY OUTPATIENT NOTE DATE OF NOTE: NOV 01, 2024@08:13 ENTRY DATE: NOV 01, 2024@08:13:57 AUTHOR: JARROD ROBERT EXP COSIGNER: ROBERT GOVEA URGENCY: STATUS: COMPLETED GASTROENTEROLOGY OUTPATIENT FOLLOW UP STL Has ADDENDA CC: GERD Pt. is a 43 M with history of GERD, hereditary hemochromatosis on phlebotomy treatment, SHAWN, PTSD, anxiety, family history of colon cancer who presents for follow-up. Last seen 06/21/24. At that time, was taking esomeprazole BID, baclofen for TLESR, and famotidine and Pepto-Bismol PRN. Despite this he had ongoing epigastric and retrosternal burning that was bothersome, worse in the morning. For his bowel symptoms, he was taking colestipol which was working well with most stools in the [place] 2-5 range. Given his ongoing problematic dyspeptic symptoms a request was made to switch PPI to vonoprazan, which was approved. He reports doing amazing on the vonoprazan. He is no longer taking famotidine or Pepto-Bismol. He only experiences dyspepsia when he has a very empty stomach and needs to eat something. He still has occasional bloating but thinks it correlates to what he eats more than anything - happens when he eats a carb- heavy meal. He is taking colestipol more or less as needed, he estimates once or twice a week. He thinks he is having around 4 stools a day, points to [place] 3-5. Frequency and form he is satisfied with but he has been frustrated with post-prandial urgency. No accidents. Last EGD 12/31/23: regular Z-line at 40 cm from incisors, otherwise normal esophagus and stomach, multiple duodenal polyps. ROS: Review of systems is as per HPI and additionally notable for Constitutional: No fever, No weakness/ fatigue Cardiovascular: No chest pain, No palpitations Respiratory: No shortness of breath, No cough Genitourinary: No dysuria, No polyuria Neurology: No headache, No tremors Musculoskeletal: No joint pain, No back pain Skin: No rash, No itching Psychiatric: No anxiety, No depression 10-point ROS is otherwise negative. MEDICATIONS: reviewed and pertinent for Active Outpatient Medications (excluding Supplies): Issue Date Status Last Fill Active Outpatient Medications Refills Expiration 1) ATORVASTATIN CALCIUM 40MG TAB Qty: 45 for 90 ACTIVE Issue: 06/06/24 days Sig: TAKE ONE-HALF TABLET BY MOUTH Refills: 0 Last : 08/29/24 EVERY EVENING TO LOWER CHOLESTEROL.REPORT Expr : 06/07/25 ANY UNEXPLAINED MUSCLE PAIN OR WEAKNESS TO PROVIDER 2) BACLOFEN 10MG TAB Qty: 60 for 30 days Sig: ACTIVE Issue: 03/15/24 TAKE ONE TABLET BY MOUTH TWICE A DAY MAY Refills: 4 Last : 06/08/24 CAUSE DROWSINESS Expr : 03/16/25 Indication: FOR HEARTBURN 3) COLESTIPOL HCL 1GM TAB Qty: 60 for 30 days ACTIVE Issue: 03/15/24 Sig: TAKE TWO TABLETS BY MOUTH EVERY DAY Refills: 1 Last : 09/12/24 (OTHER MEDICATIONS SHOULD BE TAKEN 1 HOUR Expr : 03/16/25 BEFORE OR 4 HOURS AFTER COLESTIPOL) Indication: FOR DIARRHEA 4) EPI(EQV-ADRENACLICK)0.3MG/0. 3ML INJCTR Qty: ACTIVE Issue: 03/29/24 2 for 10 days Sig: INJECT 1 PEN Refills: 1 Last : 03/31/24 (0.3MG/0.3ML) INTRAMUSCULARLY NEEDED . Expr : 03/30/25 INJECT MEDICATION INTRAMUSCULARLY OR SUBCUTANEOUSLY TO LATERAL THIGH THROUGH CLOTHING IF NECESSARY FOR ANAPHYLACTIC REACTION 5) LACTOBACILLUS ACIDOPHILUS TAB Qty: 100 for ACTIVE Issue: 06/26/24 90 days Sig: TAKE 1 TABLET BY MOUTH ONCE A Refills: 2 Last : 10/10/24 DAY Expr : 06/27/25 Indication: FOR BLOATING 6) MONTELUKAST NA 10MG TAB Qty: 90 for 90 days ACTIVE Issue: 10/23/24 Sig: TAKE ONE TABLET BY MOUTH EVERY EVENING Refills: 1 Last : 10/28/24 Expr : 10/24/25 7) VONOPRAZAN 20MG TAB Qty: 30 for 30 days Sig: ACTIVE Issue: 06/27/24 TAKE ONE TABLET BY MOUTH EVERY MORNING Refills: 3 Last : 10/10/24 Indication: FOR GASTROESOPHAGEAL REFLUX Expr : 06/28/25 DISEASE Start Date Active Non-VA Medications Status Stop Date 1) Non-VA ASPIRIN 81MG EC TAB SiMG BY ACTIVE MOUTH ONCE A DAY 2) Non-VA TESTOSTERONE CYP 200MG/ML 1ML IN ACTIVE OIL SiMG/0.5ML DEEP INTRAMUSCULARLY TWO TIMES PER WEEK 9 Total Medications Vitals: 97.5 F [36.4 C] (11/01/2024 07:40)84 (11/01/2024 07:40)129/88 (11/01/2024 07:40)16 (11/01/2024 07:40) Measurement DT POx (L/MIN)(%) 11/01/2024 07:40 97 08/30/2024 12:51 96 08/25/2024 08:27 97 06/21/2024 08:07 97 General-NAD, well-nourished HEENT-mucous membranes moist and without lesion or exudate, no scleral icterus CV-rrr no m/r/g/t Lung-cta arlin, symmetric movement Abd-nabs, s/nt/nd, no masses, no HSM Skin-no rash or jaundice INTERVAL TESTS: LABS: Hgb HGB 18.2 H g/dL 08/30/2024 12:26 Hct 53.6 % H (08/30/24 12:26) MCV 93.7 fL (08/30/24 12:26) Plt PLT 213 10*3/uL 08/30/2024 12:26 Iron, TIBC No IRON & TIBC EO data found [place] FERRITIN 34.45 ng/mL 08/30/2024 12:26 BUN 12.2 mg/dL (08/30/24 12:26) Cr CREATININE 1.22 mg/dL 08/30/2024 12:26 Alb ALBUMIN 4.9 g/dL 08/30/2024 12:26 Ca 9.9 mg/dL (08/30/24 12:26) TSH No TSH (2YR) EO data found Vit D VITAMIN D, 25-HYDROXY 59.9 ng/mL 08/30/2024 12:26 ALT 66 U/L H (08/30/24 12:26) AST 33 U/L (08/30/24 12:26) TB TOTAL BILIRUBIN 0.5 mg/dL 08/30/2024 12:26 AP ALKALINE PHOSPHATASE 91 U/L 08/30/2024 12:26 INR No INR EO data found 0 No HE Ab (IgG) (STL) data found HEP HB S AG (AUSRIA) STL-MA No data available for: HEP HB S Ag (A[place]RIA) (STL) No HEP B Surface Ab-HBsAB (AUSAB) (STL-MA) data found No HEPATITIS C (10Y) EO data found No HEPATITIS C (10Y) EO data found IMAGING: Impression for CT ABDOMEN AND PELVIS W/CONTRAST, 12/23/23, case [id number] No acute process in the abdomen or pelvis. Michael Infante MD (Biostatistics Manager) I, Eugene Barber, have reviewed the images and report and concur with these findings. Impression for US ABDOMEN LTD, SINGLE ORG OR QUADRANT, 06/15/23, case 827 Mild increased liver echogenicity with no focal suspicious hepatic observations. Normal gallbladder with no bile duct dilatation. US visualization score: A US Category: 1 US LI-RADS REFERENCE: US-1 negative: No evidence of HCC US-2 subthreshold: Observation(s) detected that may warrant short-interval US surveillance; observation <10 mm in diameter, not definitely benign. US-3 positive: Observation(s) detected that may warrant multiphase contrast-enhanced imaging; observation ? 10 mm in diameter or new thrombus in vein. Visualization Score: A: No or minimal limitations; limitations, if any, are unlikely to meaningfully affect sensitivity B: Moderate limitations; limitations my obscure small masses C: Severe limitations; limitations significantly lower sensitivity for focal liver lesions No Impressions found IMP: 43 M with history of GERD, hereditary hemochromatosis on phlebotomy treatment, SHAWN, PTSD, anxiety, family history of colon cancer who presents for follow-up. REC: #GERD, dyspepsia Symptoms improved with vonoprazan, will continue vonoprazan and baclofen at current dosing. #Altered stool habits Stool form, frequency improved with colestipol. Given urgency, offered dicyclomine PRN which he is interested in trying, would take before meals as needed. #Family history of colon cancer Reports family history in paternal grandfather, diagnosed in late 50's/early 60's. Start screening at age 45. Return to clinic in 12 months. Benefits, risks, and alternative tests described to patient and he/she agrees to proceed. The patient was instructed to call the GI lab on the 6th floor of [facility] at [phone] or [phone] if questions or concerns arise. 12/06/2024 13:00 [facility]-ONCOLOGY THEVARY 12/06/2024 13:30 KHALIF-CHEMO 02/26/2025 10:30 STL-V15 CVT [facility] PACT SUPERVISOR CELL MAINTENANCE 2 09/21/2025 14:15 [facility] Medication list was reviewed with the patient or care-lead caregiver, any discrepancies were resolved and the patient was given an updated list. The patient was provided written information with my name, contact phone number, fax, GI lab number and email address. Patient was instructed to contact me with issues/questions/concerns. Written instructions with plans for meds/lab/imaging/procedures was provided to ensure compliance with the above stated plan. /lachelle/ JARROD ROBERT MD GI FELLOW Signed: 11/01/2024 08:17 /lachelle/ ROBERT GOVEA MD Gastroenterology Staff Physician Cosigned: 11/02/2024 20:44 11/02/2024 ADDENDUM STATUS: COMPLETED I have discussed this patient's case today with the gastroenterology fellow, and have reviewed the history, laboratory, endoscopic/pathology, and radiologic findings. I reviewed the note created by Dr. Robert, and agree with the history, data, synthesis, and plan as outlined in his note. /lachelle/ ROBERT GOVEA MD Gastroenterology Staff Physician Signed: 11/02/2024 20:58 JARROD ROBERT [facility]
--- OUTSIDE RECORDS SUMMARY | 2024-12-22 20:07 | XMS_ITS ---
Author Name [facility] [place] [place] Organization [facility] [place] Address [address] [place] [address] Care Team Providers Care Lens Inserter Name Role Phone URI GALINDO Primary Care Provider Unavailabl e Insurance [...] FEP-B ASIC- PPO May 24, 2011 [id number] BARBARAHELEN PATIENT CAREMARK ([id number]) PRESCRIPT ION FEP May 24, 2011 [id number] HELEN JIMENEZ PATIENT Selected Encounter This section includes the information on record at [place] for the Encounter. Date/Time Encounter Type Encounter Description Reason Provider Source Dec 31, 2023 12:39 PM Outpatient Encounter ADMIN PAT ACTIVTIES (MASNONCT) MICHELLE MEDINA IHE Encounter Template Text not used by [place] Plan of Treatment: Future Appointments (+ 6 months) and Future Tests (+/- 45 days) The Plan of Treatment section includes future care activities for the patient from all [facility] treatment[facility]. This section includes future appointments and future orders which are active, pending or scheduled. Future Appointments This section includes appointments that were scheduled to occur 6 months from the date of the Encounter, up to a maximum of 20 appointments. The data comes from all [facility]. Appointment Date/Time Appointment Type Appointme nt Facility Name Jan 03, 2024 02:30 PM AMBULATORY - SURGERY [facility] Jan 12, 2024 08:45 AM [facility]UL[facility]ORY - MEDICINE [facility] Jan 25, 2024 02:00 PM [facility] Jan 26, 2024 02:30 PM [facility] Feb 23, 2024 02:00 PM AMBULATORY - MEDICINE [facility] Mar 15, 2024 08:00 AM AMBULATORY - [facility]AB [facility] Mar 15, 2024 09:00 AM AMBULATORY - MEDICINE [facility] Apr 10, 2024 03:00 PM AMBULATORY - SURGERY [facility] Apr 25, 2024 02:00 PM [facility] - [facility]RY [facility] Apr 25, 2024 02:00 PM [facility]RY [facility] May 01, 2024 04:00 PM AMBULATORY - MEDICINE [facility] May 12, 2024 11:30 AM AMBULATORY - MEDICINE [facility] May 12, 2024 12:00 PM AMBULATORY - MEDICINE [facility] Jun 09, 2024 10:30 AM AMBULATORY - PSYCHIATRY [facility] Jun 09, 2024 10:30 AM AMBULATORY - PSYCHIATRY [facility] [place] [facility] Jun 21, 2024 08:20 AM AMBULATORY - MEDICINE [facility] Lab Results: +/- 30 days of the encounter This section includes the Chemistry and Hematology Lab Results on record with [place] for the patient. Radiology Reports and Pathology Reports are provided separately, in subsequent sections. Lab Results This section contains the Chemistry/Hematology Results that were resulted 30 days before or 30 daysafter the date of the Encounter. Date/Time Source Result Type Result - Unit Interpretation Reference Range Specimen Type Comment Dec 23, 2023 01:20 PM [facility] CBC BLOOD Specimen Type: BLOOD No comment entered. Ordering Provider: MICHI BOYER Report Released Date/Time: Dec 23, 2023 01:16 PM Reporting Lab: [facility] [address] [facility] [address] Performing Lab: [facility] [address] [facility] [address] WBC 8.3 10*3/uL 3.6-11.2 RBC 6.01 10*6/uL H 4.10-5.70 HGB 19.6 g/dL H 13.1-16.8 HCT 56.7 H 38.2-48.4 MCV 94.3 fL 80.0-100.0 MCH 32.6 pg 27.0-34.0 MCHC 34.6 g/dL 33.0-36.0 PLT 262 10*3/uL 150-400 MPV 11.2 fL 7.5-11.2 RDW 12.9 11.8-15.1 LYMPHOCYTES, AUTO % 29 MONOCYTES, AUTO % 12 NEUTROPHILS, AUTO % 54 EOSINOPHILS, AUTO % 4 BASOPHILS, AUTO % 1 LYMPHOCYTES, ABSOLUTE 2.42 10*3/uL 0.77- 4.50 MONOCYTES, ABSOLUTE 0.99 10*3/uL H 0.19-0. 80 NEUTROPHILS, ABSOLUTE 4.47 10*3/uL 2.10- 8.00 EOSINOPHILS, ABSOLUTE 0.36 10*3/uL 0.00- 0.60 BASOPHILS, ABSOLUTE 0.07 10*3/uL 0.00-0. 20 Dec 23, 2023 01:20 PM [facility] COMPREHENSIVE METABOLIC PANEL PLASMA Specimen Type: PLASMA Comment: K result may show a positive bias due to hemolysis. Specimen slightly hemolyzed. Ordering Provider: MICHI BOYER Report Released Date/Time: Dec 23, 2023 01:16 PM Reporting Lab: [facility] [address] [facility] [address] Performing Lab: [facility] [address] [facility] [address] CREATININE 1.53 mg/dL H 0.7-1.3 UREA NITROGEN 14.0 mg/dL 9.0-25.0 GLUCOSE 97 mg/dL 72-99 SODIUM 137 meq/L 136-145 POTASSIUM 4.2 meq/L 3.5-5 CHLORIDE 104 meq/L 98-107 CARBON DIOXIDE 21 meq/L L 22-31 CALCIUM 9.8 mg/dL 8.4-10.4 PROTEIN 8.0 g/dL 6-8.6 ALBUMIN 4.7 g/dL 3.4-5 TOTAL BILIRUBIN 0.8 mg/dL 0.2-1.2 ALKALINE PHOSPHATASE 97 U/L 40-150 AST/SGOT 40 U/L H 5-34 ALT/SGPT 74 U/L H 8-40 EGFR (CKD-EPI 2020) 58.2 >60 Dec 23, 2023 01:20 PM [facility] LIPASE PLASMA Specimen Type: PLASM A Comment: K result may show a positive bias due to hemolysis. Specimen slightly hemolyzed. Ordering Provider: MICHI BOYER Report Released Date/Time: Dec 23, 2023 01:16 PM Reporting Lab: [facility] [address] [facility] [address] Performing Lab: [facility] [address] [facility] [address] LIPASE 68 U/L 8-78 Dec 07, 2023 01:35 PM [facility] FERRITIN SERUM Specimen Type: SERUM No comment entered. Ordering Provider: ROBERTO DENTON Report Released Date/Time: Sep 07, 2023 10:51 AM Reporting Lab: [facility] [address] [facility] [address] Performing Lab: [facility] [address] [facility] [address] FERRITIN 48.21 ng/mL 22-275 Dec 07, 2023 01:35 PM [facility] HGA1C BLOOD Specimen Type: BLOOD No comment entered. Ordering Provider: ESTER SHIN I Report Released Date/Time: Sep 20, 2023 04:58 AM Reporting Lab: [facility] [address] [facility] [address] Performing Lab: [facility] [address] [facility] [address] HGA1C 5.3 4.0-6.0 Dec 07, 2023 01:35 PM [facility] LIPID PANEL (STL) PLASMA Specimen Type: PLASM A Comment: LDL calculation invalid when Triglyceride exceeds 250 mg/dl Ordering Provider: ESTER SHIN I Report Released Date/Time: Sep 20, 2023 04:58 AM Reporting Lab: [facility] [address] [place] [phone] Performing Lab: [address] [address] CHOLESTEROL 149 mg/dL 0-200 TRIGLYCERIDE 374 mg/dL H 0-150 DIRECT LDL 59 mg/dL L >100 CALCULATED LDL comment mg/dL HDL(New) 65 mg/dL >40 Dec 07, 2023 01:[address] [facility] CBC BLOOD Specimen Type: BLOOD No comment entered. Ordering Provider: ROBERTO DENTON Report Released Date/Time: Sep 07, 2023 10:51 AM Reporting Lab: [facility] [address] [facility] [address] Performing Lab: [address] [address] WBC 8.5 10*3/uL 3.6-11.2 RBC 5.31 10*6/uL 4.10-5.70 HGB 17.7 g/dL H 13.1-16.8 HCT 50.3 H 38.2-48.4 MCV 94.7 fL 80.0-100.0 MCH 33.3 pg 27.0-34.0 MCHC 35.2 g/dL 33.0-36.0 PLT 243 10*3/uL 150-400 MPV 11.3 fL H 7.5-11.2 RDW 12.6 11.8-15.1 LYMPHOCYTES, AUTO % 26 MONOCYTES, AUTO % 11 NEUTROPHILS, AUTO % 58 EOSINOPHILS, AUTO % 4 BASOPHILS, AUTO % 1 LYMPHOCYTES, ABSOLUTE 2.24 10*3/uL 0.77- 4.50 MONOCYTES, ABSOLUTE 0.94 10*3/uL H 0.19-0. 80 NEUTROPHILS, ABSOLUTE 4.92 10*3/uL 2.10- 8.00 EOSINOPHILS, ABSOLUTE 0.30 10*3/uL 0.00- 0.60 BASOPHILS, ABSOLUTE 0.07 10*3/uL 0.00-0. 20 Radiology Reports: +/- 30 days of the encounter Radiology Reports For cases when an order for radiology services may have been completed prior to the date of the Encounter, the report list includes the Radiology Reports that were completed up to 30 days before dateof the Encounter. For cases when an order for radiology services may have been completed after the date of the Encounter, the report list also includes the Radiology Reports that were completed up to30 days after date of the Encounter. The data comes from all [place] treatment facilities. Date/Time Radiology Report Provider Source Dec 23, 2023 02:[address] ABD PEL W/CONT & 3D: HELEN JIMENEZ RAE [id number] -[id number] M Exm Date: DEC 23, 2023@14:26 Req Phys: JACQUELINE,NORMA D Pat Loc: [facility]-EMERGENCY DEPT 2ND SHIFT (R Img Loc: [facility]-CT IMAGING [facility] Service: [facility] [address] [place] [address] (Case [id number] COMPLETE) CT ABDOMEN AND PELVIS W/CONTRAST (CT Detailed) CPT:89603 Contrast Media : Non-ionic Iodinated Reason for Study: Upper abdominal pain (Case [id number] COMPLETE) CT 3D RENDERING W INDEPENDENT WOR(CT Detailed) CPT:97946 Clinical History: Responsible Attending: Jacqueline Attending Contact Number: [phone] Resident Contact Number: Epigastric pain, feels like there is a bulge to his epigastrium Allergies listed in CPRS chart: SEASONAL ALLERGIES Creatinine:CREATININE 1.34 H mg/dL 09/07/2023 09:21 /eGFR: STL EGFR (within one year). CREATININE 1.34 mg/dL H (09/07/23 09:21) Wt: 214.7 lb [97.39 kg] (12/07/2023 14:21) History of: Renal failure, chronic or acute renal disease: NO Report Status: Verified Date Reported: DEC 23, 2023 Date Verified: DEC 23, 2023 Public Health Aide E-Sig:/ES/LYNNE MILES Report: Case [id number]. CT ABDOMEN AND PELVIS W/CONTRAST. Gastrointestinal contrast: None. IV contrast: Yes. Comparison: None History: Upper abdominal pain FINDINGS: Inferior chest: Within normal limits. Liver: The liver is homogeneous in attenuation without focal lesion. The main portal vein and branches are patent. Gallbladder: Within normal limits. Biliary: Within normal limits. Spleen: Within normal limits. Pancreas: Within normal limits. Adrenals: Within normal limits. Kidneys: Within normal limits. Bladder: Within normal limits. Prostate: Within normal limits. Gastrointestinal: No dilated loops of large or small bowel.. The appendix appears normal. Retroperitoneum/mesentery : No enlarged mesenteric or retroperitoneal lymph nodes.. Vascular: Within normal limits. Musculoskeletal: Within normal limits. Impression: No acute process in the abdomen or pelvis. Leanne Infante MD (Insulator Cutter And Former) I, Lynne Miles, have reviewed the images and report and concur with these findings. Primary Interpreting Staff: LYNNE MILES MD (Public Health Aide) Primary Interpreting Resident: LEANNE INFANTE, Resident Physician /LYNNE MARSHALL [facility] Encounter Notes: All associated encounter notes This section contains the clinical notes associated to the Encounter. Date/Time Encounter Note(s) Provider Source Dec 31, 2023 12:39 PM ANESTHESIOLOGY ERNESTO WSHEET: LOCAL TITLE: ANES INTRA-OP FLOWSHEET ST STANDARD TITLE: ANESTHESIOLOGY FLOWSHEET DATE OF NOTE: DEC 31, 2023@12:39 ENTRY DATE: DEC 31, 2023@12:39:57 AUTHOR: MICHELLE MEDINA EXP COSIGNER: URGENCY: STATUS: COMPLETED Patient: HELEN JIMENEZ SSN: [id number] Date of Operation: 12/31/2023 Surgery Start Time: Surgery End Time: Anesthesia Care Start: 12/31/2023 12:24 Anesthesia Care End: 12/31/2023 12:38 Anesthesia Method: - Monitored 12/31/2023 12:24 (Primary), Level Of Consciousness: Sedated, Monitors Applied, Oxygen Therapy: Mask, EtCO2 Verified: Waveform ASA Number: 2 Procedure: EGD Diagnosis: GERD Holding, Anesthesia, PACU Drugs: --------- FentaNYL: 100 mcg Lidocaine: 100 mg Propofol: 110 mg Propofol gtt: 39.473 mg DexmedeTOMidine: 8 mcg Holding, Anesthesia, PACU Fluids: Normal Saline: 400 ml Resources: Headrest - Pillow Staff: --------- JASE EVANGELISTA ANES. DORIS. MICHELLE MEDINA PRIN. ANES. Procedure Date: 12/31/2023 Procedure Start Time: 12/31/2023 12:32 Procedure End Time: 12/31/2023 12:35 /lachelle/ MICHELLE MEDINA CRNA CRNA, Anesthesiology Signed: 12/31/2023 12:39 MICHELLE MEDINA [facility]
--- OUTSIDE RECORDS SUMMARY | 2024-12-22 20:07 | XMS_ITS | Encounter Summary ---
Author Name [facility] [place] Organization [place] Address [address] [place] [address] Care Team Providers Care Pulmonologist Intensivist Name Role Phone URI GALINDO Primary Care [...] FEP-B ASIC- PPO May 24, 2011 [id number] BARBARAHELEN PATIENT CAREMARK ([id number]) PRESCRIPT ION FEP May 24, 2011 [id number] BARBARAHELEN PATIENT Selected Encounter This section includes the information on record at [place] for the Encounter. Date/Time Encounter Type Encounter Description Reason Provider Source Dec 22, 2024 10:59 AM Outpatient Encounter ADMIN PAT ACTIVTIES (MASNONCT) RICHARD VELÁZQUEZ Machelle Encounter Template Text not used by [place] Plan of Treatment: Future Appointments (+ 6 [...] 20 appointments. The data comes from all [place] treatment facilities. Appointment Date/Time Appointment Type Appointme nt Facility Name Feb 05, 2025 02:30 PM AMBULATORY - SURGERY [facility] Feb 26, 2025 10:30 AM AMBULATORY - NONE [facility] Apr 12, 2025 01:00 PM AMBULATORY - MEDICINE [facility] Apr 12, 2025 01:30 PM AMBULATORY - MEDICINE [facility] Lab Results: +/- 30 days of the encounter This section includes the Chemistry and Hematology Lab Results on record with [place] for the patient. Radiology Reports and Pathology Reports are provided separately, in subsequent sections. Lab Results This section contains the Chemistry/Hematology Results that were resulted 30 days before or 30 daysafter the date of the Encounter. Date/Time Source Result Type Result - Unit Interpretation Reference Range Specimen Type Comment Dec 20, 2024 01:24 PM [facility] FERRITIN SERUM Specimen Type: SERUM No comment entered. Ordering Provider: ROBERTO DENTON Report Released Date/Time: Sep 01, 2024 11:00 AM Reporting Lab: [facility] [address] [facility] [address] Performing Lab: [address] [address] FERRITIN 23.58 ng/mL 22-275 Dec 20, 2024 01:24 PM [facility] CBC BLOOD Specimen Type: BLOOD No comment entered. Ordering Provider: ROBERTO DENTON Report Released Date/Time: Sep 01, 2024 11:00 AM Reporting Lab: [address] [address] Performing Lab: [address] [address] WBC 8.9 10*3/uL 3.6-11.2 RBC 5.73 10*6/uL H 4.10-5.70 HGB 18.0 g/dL H 13.1-16.8 HCT 52.5 H 38.2-48.4 MCV 91.6 fL 80.0-100.0 MCH 31.4 pg 27.0-34.0 MCHC 34.3 g/dL 33.0-36.0 PLT 247 10*3/uL 150-400 MPV 11.5 fL H 7.5-11.2 RDW 13.1 11.8-15.1 LYMPHOCYTES, AUTO % 29 MONOCYTES, AUTO % 10 NEUTROPHILS, AUTO % 56 EOSINOPHILS, AUTO % 4 BASOPHILS, AUTO % 1 LYMPHOCYTES, ABSOLUTE 2.54 10*3/uL 0.77- 4.50 MONOCYTES, ABSOLUTE 0.92 10*3/uL H 0.19-0. 80 NEUTROPHILS, ABSOLUTE 4.98 10*3/uL 2.10- 8.00 EOSINOPHILS, ABSOLUTE 0.34 10*3/uL 0.00- 0.60 BASOPHILS, ABSOLUTE 0.07 10*3/uL 0.00-0. 20 Social History: Smoking Status (Most current) and Tobacco Use (All prior to encounter date) This section includes the most current, and the historical, smoking and tobacco- related health factors from the [place] facility where the Encounter took place. Current Smoking Status This section includes the most current smoking, or tobacco-related health factor, from the [place] facility where the Encounter took place. Date/Time Current Smoking Status Comment Abimobla castellon Jun 15, 2023 07:58 AM VA-TOBACCO NEVER USED [facility] Tobacco Use History This section includes a history of the smoking, or tobacco-related health factors, that were collected on or before the date of the Encounter. The data comes from the [place] facility where the Encounter took place. Date/Time Smoking Status/Tobacco Use Comment Adis acfarhan May 06, 2022 12:37 PM VA-TOBACCO NEVER USED [facility] May 23, 2019 02:47 PM VA-TOBACCO USE > 1 5 LESS THAN 30 YEARS [facility] May 23, 2019 02:47 PM VA-TOBACCO USE ADVICE [facility] May 23, 2019 02:47 PM VA-TOBACCO USE METALLURGICAL OR MATERIALS TECHNICIAN NO [facility] May 23, 2019 02:47 PM VA-TOBACCO USE MED NO [facility] May 23, 2019 02:47 PM VA-TOBACCO USE WI 30 MIN OF WAKEUP [facility] May 23, 2019 02:47 PM VA-TOBACCO USER EVERY DAY [facility] Mar 28, 2008 11:51 AM CURRENT TOBACCO USER [facility] Mar 28, 2008 11:51 AM TOBACCO OFFERRED P T MEDS (PROVIDER) [facility] Feb 26, 2006 09:55 AM CURRENT TOBACCO USER [facility] Feb 26, 2006 09:55 AM SMOKER 10-20 [facility] Encounter Notes: All associated encounter notes This section contains the clinical notes associated to the Encounter. Date/Time Encounter Note(s) Provider Source Dec 22, 2024 10:59 AM PHARMACY MEDICATION MGT DISCHARGE NOTE: LOCAL TITLE: PHARMACY COMMUNITY CARE PRESCRIPTION PROCESSING NOT STANDARD TITLE: PHARMACY MEDICATION MGT DISCHARGE NOTE DATE OF NOTE: DEC 22, 2024@10:59 ENTRY DATE: DEC 22, 2024@10:59:32 AUTHOR: RICHARD VELÁZQUEZ [facility] EXP COSIGNER: URGENCY: STATUS: COMPLETED Pharmacy service received prescription(s) via: Inbound ERx ELIGIBILITY: [facility] ([facility]) eligibility has been verified and/or is documented. PRESCRIPTION INFORMATION: Provider Information:Tom Goldstein, fax: [phone]) eRx Drug : Insulin Syringe 31G X 5/16 1 ML MiscellaneouseRx SIG : as directed Subcutaneous 8 times a week 90 days DISPOSITION: The medication(s) prescribed is/are formulary without criteria for use or other restrictions, and will be dispensed to the patient. /lachelle/ RICHARD VELÁZQUEZ, PharmD [facility] Pharmacist, Pharmacy Signed: 12/22/2024 11:03 RICHARD VELÁZQUEZ [facility]
--- OUTSIDE RECORDS SUMMARY | 2024-12-22 20:07 | XMS_ITS | Encounter Summary ---
Author Name [facility] Organization [facility] Address [address] [place] [address] Care Team Providers Care Dealer Analyst Name Role Phone URI GALINDO Primary Care [...] FEP-B ASIC- PPO May 24, [phone] [id number] BARBARAHELEN PATIENT CAREMARK ([id number]) PRESCRIPT ION FEP May 24, 2011 [id number] BARBARAHELEN PATIENT Selected Encounter This section includes the information on record at ID for the Encounter. Date/Time Encounter Type Encounter Description Reason Provider Source Aug 30, 2024 01:00 PM OFFICE O/P EST HI 40 MIN ONCOLOGY/TUMOR ICD-10-CM E83.110 Hereditary hemochromatosis THEVARY,VALSA MMA IHE Encounter Template Text not used by ID Assessments - Encounter Diagnoses This section includes the primary and secondary diagnoses documented for the Encounter. Date/Time Primary/Secondary Diagnosis Diagnosis Name Provider Source Aug 30, 2024 11:05 PM PRIMARY [facility]ochrom[facility] Aug 30, 2024 11:05 PM SECONDARY Alcohol abuse, uncomplicated [facility] Aug 30, 2024 11:05 PM SECONDARY Secondary polycythemia [facility] Aug 30, 2024 11:05 PM SECONDARY Testicular hypofunction [facility] Plan of Treatment: Future Appointments (+ 6 months) and Future Tests (+/- 45 days) The Plan of Treatment section includes future care activities for the [facility] This section includes future appointments and future orders which are active, pending or scheduled. Future Appointments This section includes appointments that were scheduled to occur 6 months from the date of the Encounter, up to a maximum of 20 appointments. The data comes from all ID treatment facilities. Appointment Date/Time Appointment Type Appointme nt Facility Name Sep 19, 2024 10:30 AM AMBULATORY - MEDICINE [facility] Nov 01, 2024 08:00 AM AMBULATORY - MEDICINE [facility] Dec 20, 2024 01:30 PM AMBULATORY - MEDICINE [facility] Dec 20, 2024 02:00 PM AMBULATORY - MEDICINE [facility] Feb 05, 2025 02:30 PM AMBULATORY - SURGERY [facility] Feb 26, 2025 10:30 AM AMBULATORY - NONE [facility] Lab Results: +/- 30 days of the encounter This section includes the Chemistry and Hematology Lab Results on record with ID for the patient. Radiology Reports and Pathology Reports are provided separately, in subsequent sections. Lab Results This section contains the Chemistry/Hematology Results that were resulted 30 days before or 30 daysafter the date of the Encounter. Date/Time Source Result Type Result - Unit Interpretation Reference Range Specimen Type Comment Aug 30, 2024 12:26 PM [facility] FERRITIN SERUM Specimen Type: SERUM No comment entered. Ordering Provider: ROBERTO DENTON Report Released Date/Time: Aug 17, 2024 09:49 AM Reporting Lab: [facility] [address] [facility] [id number] Performing Lab: [facility] [address] [facility] [address] FERRITIN 34.45 ng/mL 22-275 Aug 30, 2024 12:26 PM [facility] CBC BLOOD Specimen Type: BLOOD No comment entered. Ordering Provider: ROBERTO DENTON Report Released Date/Time: Aug 17, 2024 09:49 AM Reporting Lab: [address] [address] Performing Lab: [place] [address] [facility] [address] WBC 8.1 10*3/uL 3.6-11.2 RBC 5.72 10*6/uL H 4.10-5.70 HGB 18.2 g/dL H 13.1-16.8 HCT 53.6 H 38.2-48.4 MCV 93.7 fL 80.0-100.0 MCH 31.8 pg 27.0-34.0 MCHC 34.0 g/dL 33.0-36.0 PLT 213 10*3/uL 150-400 MPV 11.3 fL H 7.5-11.2 RDW 12.7 11.8-15.1 LYMPHOCYTES, AUTO % 29 MONOCYTES, AUTO % 8 NEUTROPHILS, AUTO % 58 EOSINOPHILS, AUTO % 4 BASOPHILS, AUTO % 1 LYMPHOCYTES, ABSOLUTE 2.30 10*3/uL 0.77- 4.50 MONOCYTES, ABSOLUTE 0.68 10*3/uL 0.19-0. 80 NEUTROPHILS, ABSOLUTE 4.69 10*3/uL 2.10- 8.00 EOSINOPHILS, ABSOLUTE 0.31 10*3/uL 0.00- 0.60 BASOPHILS, ABSOLUTE 0.06 10*3/uL 0.00-0. 20 Aug 30, 2024 12:26 PM [facility] PROST. SPECIFIC AG.(PB-STL) SERUM Specimen Ty pe: SERUM Comment: The listed sex of this patient may not be a typical indication for this test. Therefore, reference ranges or interpretive criteria listed may not be valid. Clinical correlation suggested. Ordering Provider: AZEEM PRESCOTT Report Released Date/Time: Aug 25, 2024 09:06 AM Reporting Lab: [facility] [address] [place] [phone] Performing Lab: [address] [address] PROST. SPECIFIC AG.(PB-STL) 0.894 ng/mL 0-4 Aug 30, 2024 12:26 PM [facility] COMPREHENSIVE METABOLIC PANEL PLASMA Specimen Type: PLASMA Comment: LDL calculation invalid when Triglyceride exceeds 250 mg/dl Ordering Provider: AZEEM PRESCOTT Report Released Date/Time: Aug 25, 2024 09:06 AM Reporting Lab: [address] [address] Performing Lab: [address] [address] CREATININE 1.22 mg/dL 0.7-1.3 UREA NITROGEN 12.2 mg/dL 9.0-25.0 GLUCOSE 98 mg/dL 72-99 SODIUM 139 meq/L 136-145 POTASSIUM 4.0 meq/L 3.5-5 CHLORIDE 104 meq/L 98-107 CARBON DIOXIDE 26 meq/L 22-31 CALCIUM 9.9 mg/dL 8.4-10.4 PROTEIN 8.2 g/dL 6-8.6 ALBUMIN 4.9 g/dL 3.4-5 TOTAL BILIRUBIN 0.5 mg/dL 0.2-1.2 ALKALINE PHOSPHATASE 91 U/L 40-150 AST/SGOT 33 U/L 5-34 ALT/SGPT 66 U/L H 8-40 EGFR (CKD-EPI 2020) 75.9 >60 Aug 30, 2024 12:26 PM [facility] LIPID PANEL (STL) PLASMA Specimen Type: PLASM A Comment: LDL calculation invalid when Triglyceride exceeds 250 mg/dl Ordering Provider: AZEEM PRESCOTT Report Released Date/Time: Aug 25, 2024 09:06 AM Reporting Lab: [address] [address] Performing Lab: [address] [address] CHOLESTEROL 175 mg/dL 0-200 TRIGLYCERIDE 366 mg/dL H 0-150 DIRECT LDL 78 mg/dL L >100 CALCULATED LDL comment mg/dL HDL(New) 64 mg/dL >40 Aug 30, 2024 12:26 PM [facility] VITAMIN D, 25-HYDROXY SERUM Specimen Type: SE RUM Comment: The listed sex of this patient may not be a typical indication for this test. Therefore, reference ranges or interpretive criteria listed may not be valid. Clinical correlation suggested. Ordering Provider: AZEEM PRESCOTT Report Released Date/Time: Aug 25, 2024 09:06 AM Reporting Lab: [facility] [address] [place] [phone] Performing Lab: [address] [address] VITAMIN D, 25-HYDROXY 59.9 ng/mL 30-96 Aug 30, 2024 12:26 PM [facility] HGA1C BLOOD Specimen Type: BLOOD No comment entered. Ordering Provider: AZEEM PRESCOTT Report Released Date/Time: Aug 25, 2024 09:06 AM Reporting Lab: [facility] [address] Performing Lab: [facility] [address] [place] [phone] HGA1C 5.3 4.0-6.0 Vital Signs: All taken on the encounter date This section contains inpatient and outpatient Vital Signs collected on the date of the Encounter. Date/Time Temperature Pulse Blood Pressure Respiratory Rate SP02 Pain Height Weight Body Mass Index Source Aug 30, 2024 12:51 PM 98.8 76 151/80 16 96 0 215.8 30 [facility] N Radiology Reports: +/- 30 days of the [...] the Encounter. The data comes from all [facility] facilities. Date/Time Radiology Report Provider Source Aug 30, 2024 01:28 PM KNEE,LEFT, 3 VIEWS : HELEN JIMENEZ [id number] -1980 M Exm Date: AUG 30, 2024@13:28 Req Phys: AZEEM PRESCOTT Pat Loc: [facility] PACT 5 NEW PATIENT ( Img Loc: [facility] SUITE Service: Unknown [address] [address] (Case [id number] COMPLETE) KNEE,LEFT, 3 VIEWS (RAD Detailed) CPT:55510 Proc Modifiers : LEFT Reason for Study: pain Clinical History: Report Status: Verified Date Reported: AUG 30, 2024 Date Verified: AUG 30, 2024 Workers Compensation Claims Assistant E-Sig:/ES/TIM ALEXANDER MD Report: 3 views History provided does not specifically explain the clinical reason and/or location of symptoms for the requested examination. comparison: 01/31/2021 No acute fracture or dislocation. No other significant osseous abnormality Other findings: Impression: No acute fracture Primary Interpreting Staff: TIM ALEXANDER MD, Radiologist (Workers Compensation Claims Assistant) /TIM MORIN [facility] Aug 30, 2024 01:28 PM FOOT,LEFT 3 VIEWS OR MORE: HELEN JIMENEZ [id number] -1980 M Exm Date: AUG 30, 2024@13:28 Req Phys: AZEEM PRESCOTT [facility] ( Img Loc: [facility] SUITE Service: Unknown [address] [address] (Case [id number] COMPLETE) FOOT,LEFT 3 VIEWS OR MORE (RAD Detailed) CPT:14525 Proc Modifiers : LEFT Reason for Study: pain Clinical History: Report Status: Verified Date Reported: AUG 30, 2024 Date Verified: AUG 30, 2024 Workers Compensation Claims Assistant E-Sig:/ES/MICHELLE SHERIDAN Report: EXAMINATION: FOOT,LEFT 3 VIEWS OR MORE DATE: 08/30/2024 1:28 PM HISTORY: pain. COMPARISON: [Foot August 2022. VIEWS:3 FINDINGS:Mild hallux focus deformity representing a change since prior study. No fracture, subluxation or dislocation. No focal destructive process. Unfused os trigonum. Ankle mortise intact. Stable minor lateral soft tissue prominence. Impression: Mild hallux valgus deformity representing a change since prior study; stable minor lateral soft tissue prominence but no acute injury or focal destructive process. Primary Interpreting Staff: MICHELLE SHERIDAN, RADIOLOGIST (Workers Compensation Claims Assistant) /MICHELLE CÁRDENAS [facility] Aug 30, 2024 01:28 PM FOOT,RIGHT,3 VIEWS OR MORE: HELEN JIMENEZ [id number] -1980 M Exm Date: AUG 30, 2024@13:28 Req Phys: AZEEM PRESCOTT Loc: [facility] PACT 5 NEW PATIENT ( Im Loc: [facility] SUITE Service: [facility] [address] [place] [address] (Case [id number] COMPLETE) FOOT,RIGHT,3 VIEWS OR MORE (RAD Detailed) CPT:46342 Proc Modifiers : RIGHT Reason for Study: pain Clinical History: Report Status: Verified Date Reported: AUG 30, 2024 Date Verified: AUG 30, 2024 Workers Compensation Claims Assistant E-Sig:/ES/MICHELLE SHERIDAN Report: EXAMINATION: FOOT,RIGHT,3 VIEWS OR MORE DATE: 08/30/2024 1:28 PM HISTORY: pain. COMPARISON: None. VIEWS:3 FINDINGS:Mild hallux focus 20. No fracture, subluxation or dislocation. No focal destructive process. Ankle mortise intact. Minor lateral soft tissue prominence. Impression: Minimal hallux valgus deformity; minor lateral soft tissue prominence but no acute injury or focal destructive process. Primary Interpreting Staff: MICHELLE SHERIDAN RADIOLOGIST (Workers Compensation Claims Assistant) /MICHELLE CÁRDENAS Brynn [facility] Encounter Notes: All associated encounter notes This section contains the clinical notes associated to the Encounter. Date/Time Encounter Note(s) Provider Source Aug 30, 2024 01:33 PM HEMATOLOGY AND ONC OLOGY OUTPATIENT NOTE: LOCAL TITLE: HEMATOLOGY ONCOLOGY OUTPATIENT FOLLOW UP ST STANDARD TITLE: HEMATOLOGY AND ONCOLOGY OUTPATIENT NOTE DATE OF NOTE: AUG 30, 2024@13:33 ENTRY DATE: AUG 30, 2024@13:33:58 AUTHOR: ROBERTO DENTON COSIGNER: URGENCY: STATUS: COMPLETED Dx: Hemochromatosis: homozygous (H63D/H63D). Treatment: Phlebotomy prn for frritin > 100.0. Interval Hx: Mr Jimenez for regular f/u. He reports of feeling very tired, was not sleeping well for 2weeks little bit better the last week. He endorses of the phlebotomy helps him a lot with his energy. He increased his ETOH intake to 4-5 shots every night from 2-3 shots x2/ week.He denies any head ache, vision problem or joint pain, stroke like feeling, or any cardiac problems. [facility], see the provider every 3 months, he has all the details of his trt hx and lab works from them and always forget to bring it for review. He stopped smoking almost 11 yrs ago, used to smoke > 2 ppd before. Received consent for the ther. phl today 08/30/24 which will be good for 1 yr. ROS: A 10 problem focussed ROS was done per interval hx. and as above. PMH: 1) Shoulder joint unstable (SNOMED CT [id number]) 2) Internal derangement of left knee 3) Instability of joint of left ankle 4) Benign essential hypertension 5) Chronic post-traumatic stress disorder 6) Past history of procedure comment: wisdom teeth extraction comment: left index finger foreign body (deep embedded splinter) removal comment: left hand surgery (traumatic infection) comment: 07/04/20 right ulnar decompression at elbow, right median nerve de 7) Hyperlipidemia ([facility] [id number]) 8) Patient Overweight ([facility] [id number]) 9) Allergic Rhinitis ([facility] [id number]) 10) Obstructive Sleep Apnea Syndrome ([facility] [id number]) 11) Testicular Hypofunction ([facility] [id number]) 12) Skin Sensation Disturbance ([facility] [id number]) comment: 03/25/20 emg/ncv: right ulnar nerve entrapment across the elbow wi comment: --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 08/30/2024 13:34 CONFIDENTIAL CURRENT HOME MEDS MA SUMMARY pg. 1 HELEN JIMENEZ [id number] : 1980 AOPM - Active OutPat Meds 1) LISINOPRIL 20MG TAB TAKE ONE-HALF TABLET BY MOUTH ONCE A DAY FOR HEART OR BLOOD PRESSURE 2) FAMOTIDINE 20MG TAB TAKE ONE TABLET BY MOUTH TWICE DAILY NEEDED TO LOWER STOMACH ACID 3) BACLOFEN 10MG TAB TAKE ONE TABLET BY MOUTH TWICE A DAY FOR HEARTBURN MAY CAUSE 4) COLESTIPOL HCL 1GM TAB TAKE TWO TABLETS BY MOUTH EVERY DAY FOR DIARRHEA (OTHER MEDICATIONS 5) EPI(EQV-ADRENACLICK)0.3MG/0 .3ML INJCTR INJECT 1 PEN (0.3MG/0.3ML) INTRAMUSCULARLY NEEDED . INJECT 6) MONTELUKAST NA 10MG TAB TAKE ONE TABLET BY MOUTH EVERY EVENING 7) ATORVASTATIN CALCIUM 40MG TAB TAKE ONE-HALF TABLET BY MOUTH EVERY EVENING TO LOWER 8) LACTOBACILLUS ACIDOPHILUS TAB TAKE 1 TABLET BY MOUTH ONCE A DAY FOR BLOATING 9) VONOPRAZAN 20MG TAB TAKE ONE TABLET BY MOUTH EVERY MORNING 10) ASPIRIN 81MG EC TAB ONCE A DAY 81MG BY MOUTH ONCE A DAY 11) TESTOSTERONE CYP 200MG/ML 1ML IN OIL TWO TIMES PER WEEK 100MG/0.5ML DEEP INTRAMUSCULARLY TWO TIMES PER WEEK Pysical Exam: Reviewed vs and weight from today. Date Vital Measurement Qualifiers 08/30/2024 12:51 Temp F (C) 98.8 (37.1) Pulse 76 Respir 16 BP 151/80 Wt lbs (kg)[BMI] 215.8 (97.89)[30*] Pain 0 POx (L/Min)(%) 96 08/25/2024 08:27 Temp F (C) 98.9 (37.2) Pulse 85 Respir 18 BP 119/81 Ht in (cm) 71 (180.34) Wt lbs (kg)[BMI] 217 (98.43)[30*] Pain 4 POx (L/Min)(%) 97 LABS: Reviewed labs from today. CMP: SODIUM 139 mEq/L 08/30/2024 12:26 POTASSIUM 4.0 mEq/L 08/30/2024 12:26 CHLORIDE 104 mEq/L 08/30/2024 12:26 UREA NITROGEN 12.2 mg/dL 08/30/2024 12:26 CREATININE 1.22 mg/dL 08/30/2024 12:26 CALCIUM 9.9 mg/dL 08/30/2024 12:26 PROTEIN 8.2 g/dL 08/30/2024 12:26 ALBUMIN 4.9 g/dL 08/30/2024 12:26 ALKALINE PHOSPHATASE 91 U/L 08/30/2024 12:26 ALT/SGPT 66 H U/L 08/30/2024 12:26 AST/SGOT 33 U/L 08/30/2024 12:26 TOTAL BILIRUBIN 0.5 mg/dL 08/30/2024 12:26 CARBON DIOXIDE 26 mEq/L 08/30/2024 12:26 GLUCOSE 98 mg/dL 08/30/2024 12:26 EGFR (CKD-EPI 2020) 75.9 08/30/2024 12:26 CBC: WBC 8.1 10*3/uL 08/30/2024 12:26 RBC 5.72 H 10*6/uL 08/30/2024 12:26 HGB 18.2 H g/dL 08/30/2024 12:26 HCT 53.6 H % 08/30/2024 12:26 MCV 93.7 fL 08/30/2024 12:26 MCH 31.8 pg 08/30/2024 12:26 MCHC 34.0 g/dL 08/30/2024 12:26 RDW 12.7 % 08/30/2024 12:26 PLT 213 10*3/uL 08/30/2024 12:26 MPV 11.3 H fL 08/30/2024 12:26 NEUTROPHILS, AUTO % 58 % 08/30/2024 12:26 LYMPHOCYTES, AUTO % 29 % 08/30/2024 12:26 MONOCYTES, AUTO % 8 % 08/30/2024 12:26 EOSINOPHILS, AUTO % 4 % 08/30/2024 12:26 BASOPHILS, AUTO % 1 % 08/30/2024 12:26 NEUTROPHILS, ABSOLUTE 4.69 10*3/uL 08/30/2024 12:26 LYMPHOCYTES, ABSOLUTE 2.30 10*3/uL 08/30/2024 12:26 MONOCYTES, ABSOLUTE 0.68 10*3/uL 08/30/2024 12:26 EOSINOPHILS, ABSOLUTE 0.31 10*3/uL 08/30/2024 12:26 BASOPHILS, ABSOLUTE 0.06 10*3/uL 08/30/2024 12:26 Creatinine: CREATININE 1.22 mg/dL 08/30/2024 12:26 PSA: PROST. SPECIFIC AG.(PB-STL) 0.894 ng/mL 08/30/2024 12:26 PROST. SPECIFIC AG.(PB-STL) 0.771 ng/mL 06/19/2020 12:44 Imaging: Date Procedure CPT Status Case # 12/23/2023 CT ABDOMEN AND PELVIS W/CONTRAST [id number] Verified 3909 No acute process in the abdomen or pelvis. Michael Infante MD (Clean Up Worker) I, Eugene Barber, have reviewed the images and report and concur with these findings. Assessment and Plan: # Hemochromatosis - Lab works with ferritin 34.45 and H/H 18.2/53.6. Did therapeutic phlebotomy before lad resulted, phlebotomised for the elevated H/H too. Our goal for ferritin is to keep <100.0, will keep the H/H in 16.0/50 range if possible. - US for liver for HCC screening on 06/15/23 with 'Mild increased liver echogenicity with no focal suspicious hepatic observations'. - CT of the abdomen on 12/23/23 with the 'liver is homogeneous in attenuation without focal lesion. The main portal vein and branches are patent'. # Polycythemia: Multifactorial, 2/2 sleep apnea and testosterone use, dehydration from ETOH abuse and not hydrating well. H/H 18.2/53.6 today, do therapeutic phlebotomy today. Scheduled for another sleep study now, not using cpap machine now. Also on testosterone trt 100 mg IMx2 weekly ?(no records available), [facility] Advised to f/u with outside privider for titration of testosterone to the lowest therapeutic level per guideline. Plan: - will keep the H/H in 16.0/50 range possible. He felt good after phl in the past. Will do do phl prn to keep the H/H in target. # ETOH abuse: Used to drink half bottle of whiskey every day for > 2 yrs from 2020 - 2021. He continues drinking 45-5 shots now every day now. Encouraged complete cessation. # Time spent for the informed consent for ther. phl for elevated H/H andhemochromatosis ,f/f visit, review, discussion, documentation and wriitng order was > 40 minutes. # RTC 12/06/24. /lachelle/ Silvio Denton,MSN,ACNP-BC REGIONAL GEODETIC ADVISOR,HEMATOLOGY/ONCOLOGY Signed: 08/30/2024 23:05 ROBERTO DENTON [facility]
--- OUTSIDE RECORDS SUMMARY | 2024-12-22 20:08 | XMS_ITS ---
Author Name [facility] [place] Organization [facility] [place] [facility] [place] Address [address] [place] [address] Care Team Providers Care Db2 Systems Programmer Name Role Phone URI GALINDO Primary Care [...] FEP-B ASIC- PPO May 24, [phone] [id number] HELEN JIMENEZ PATIENT CAREMARK ([id number]) PRESCRIPT ION FEP May 24, 2011 [id number] HELEN JIMENEZ PATIENT Selected Encounter This section includes the information on record at [place] for the Encounter. Date/Time Encounter Type Encounter Description Reason Pro vider Source Mar 07, 2024 08:16 AM Outpatient Encounter COMMUNITY CARE CONSULT IHE Encounter Template Text not used by [facility] Plan of Treatment: Future Appointments (+ 6 [...] 20 appointments. The data comes from all [place] treatment [facility]. Appointment Date/Time Appointment Type Appointme nt Facility Name Mar 15, 2024 08:00 AM AMBULATORY - REHAB MEDICIN E [facility] Mar 15, 2024 09:00 AM AMBULATORY - MEDICINE [facility] Apr 10, 2024 03:00 PM AMBULATORY - SURGERY [facility] Apr 25, 2024 02:00 PM AMBULATORY - PS[facility]CHIATRY [facility] Apr 25, 2024 02:00 PM AMBULATORY - PSYCHIATRY [facility] May 01, 2024 04:00 PM AMBULATORY - MEDICINE [facility] May 12, 2024 11:30 AM AMBULATORY - MEDICINE [facility] May 12, 2024 12:00 PM AMBULATORY - MEDICINE [facility] Jun 09, 2024 10:30 AM AMBULATORY - PSYCHIATRY [facility] Jun 09, 2024 10:30 AM AMBULATORY - PS[facility]CHIATRY [facility] Jun 21, 2024 08:20 AM AMBULATORY - MEDICINE [facility] Jul 11, 2024 01:00 AM AMBULATORY - SURGERY [facility] Jul 21, 2024 10:30 AM AMBULATORY - PSYCHIATRY [facility] Jul 21, 2024 10:30 AM AMBULATORY - PS[facility]CHIATRY [facility] Aug 25, 2024 08:30 AM AMBULATORY - MEDICINE [facility] Aug 30, 2024 01:00 PM AMBULATORY - MEDICINE [facility] Aug 30, 2024 01:30 PM AMBULATORY - MEDICINE [facility] Lab Results: +/- 30 days of the encounter This section includes the Chemistry and Hematology Lab Results on record with [place] for the patient. Radiology Reports and Pathology Reports are provided separately, in subsequent sections. Lab Results This section contains the Chemistry/Hematology Results that were resulted 30 days before or 30 daysafter the date of the Encounter. Date/Time Source Result Type Result - Unit Interpretation Reference Range Specimen Type Comment Mar 15, 2024 10:05 AM [facility] LIPASE PLASMA Specimen Type: PLASMA Comment: No hemolysis noted. Ordering Provider: ROBERT GOVEA Report Released Date/Time: Mar 15, 2024 10:01 AM Reporting Lab: [facility] [address] [facility] [address] Performing Lab: [facility] [address] [place] [phone] LIPASE 48 U/L 8-78 Mar 15, 2024 10:05 AM [facility] COMPREHENSIVE METABOLIC PANEL PLASMA Specimen Type: PLASMA Comment: No hemolysis noted. Ordering Provider: ROBERT GOVEA Report Released Date/Time: Mar 15, 2024 10:01 AM Reporting Lab: [facility] [address] [facility] [address] Performing Lab: [address] [address] CREATININE 1.31 mg/dL H 0.7-1.3 UREA NITROGEN 15.6 mg/dL 9.0-25.0 GLUCOSE 81 mg/dL 72-99 SODIUM 140 meq/L 136-145 POTASSIUM 5.0 meq/L 3.5-5 CHLORIDE 105 meq/L 98-107 CARBON DIOXIDE 26 meq/L 22-31 CALCIUM 10.0 mg/dL 8.4-10.4 PROTEIN 7.7 g/dL 6-8.6 ALBUMIN 4.6 g/dL 3.4-5 TOTAL BILIRUBIN 0.9 mg/dL 0.2-1.2 ALKALINE PHOSPHATASE 79 U/L 40-150 AST/SGOT 22 U/L 5-34 ALT/SGPT 43 U/L H 8-40 EGFR (CKD-EPI 2020) 70.1 >60 Mar 15, 2024 10:05 AM [facility] CBC BLOOD Specimen Type: BLOOD No comment entered. Ordering Provider: ROBERT GOVEA Report Released Date/Time: Mar 15, 2024 10:01 AM Reporting Lab: [facility] [address] [facility] [address] Performing Lab: [facility] [address] [place] [phone] WBC 7.4 10*3/uL 3.6-11.2 RBC 5.90 10*6/uL H 4.10-5.70 HGB 19.1 g/dL H 13.1-16.8 HCT 55.6 H 38.2-48.4 MCV 94.2 fL 80.0-100.0 MCH 32.4 pg 27.0-34.0 MCHC 34.4 g/dL 33.0-36.0 PLT 222 10*3/uL 150-400 MPV 11.5 fL H 7.5-11.2 RDW 12.3 11.8-15.1 LYMPHOCYTES, AUTO % 24 MONOCYTES, AUTO % 10 NEUTROPHILS, AUTO % 62 EOSINOPHILS, AUTO % 4 BASOPHILS, AUTO % 1 LYMPHOCYTES, ABSOLUTE 1.77 10*3/uL 0.77- 4.50 MONOCYTES, ABSOLUTE 0.72 10*3/uL 0.19-0. 80 NEUTROPHILS, ABSOLUTE 4.58 10*3/uL 2.10- 8.00 EOSINOPHILS, ABSOLUTE 0.26 10*3/uL 0.00- 0.60 BASOPHILS, ABSOLUTE 0.05 10*3/uL 0.00-0. 20 Encounter Notes: All associated encounter notes This section contains the clinical notes associated to the Encounter. Date/Time Encounter Note(s) Provider Source Mar 07, 2024 08:16 AM NONVA NOTE: LOCAL TITLE: [facility]-REQUEST FOR SERVICE NOTE [facility] STANDARD TITLE: NONVA NOTE DATE OF NOTE: MAR 07, 2024@08:16 ENTRY DATE: MAR 07, 2024@08:16:59 AUTHOR: KAYLEE DAVIES COSIGNER: URGENCY: STATUS: COMPLETED Request for Services (RFS) documentation has [facility] Consult: [facility] Study Consult No: [id number] Date sent to scanning: Feb A Request for Service (RFS) form [id number] has been received which includes the following: Care Requested:new referral to cover allergy testing to be completed with established ICD-10 Dx code: R06.83 Date [facility] received request: Feb Date service required: Feb Requesting Community Provider Information: Name of Ordering Provider: [facility] Office:[facility] Address, City, State: [facility] [address] [place] [address] RFS and clinical notes scanned for review. Previous records attached to consult. /es/ KAYLEE DAVIES MSN RN REGISTERED NURSE Signed: 03/07/2024 08:20 Receipt Acknowledged By: 03/07/2024 12:40 /es/ BLAYNE BARRETO- NURSE PRACTITIONER 03/07/2024 09:21 /es/ Jack Pabon Rn, BSN REGISTERED NURSE for KEYANNA DAVIES,KAYLEE Stewart [facility]
--- OUTSIDE RECORDS SUMMARY | 2024-12-22 20:09 | XMS_ITS ---
Author Name [facility] [place] [facility] [place] Organization [facility] [place] Address [address] [place] [address] Care Team Providers Care Security Services Manager Name Role Phone URI GALINDO Primary Care [...] FEP-B ASIC- PPO May 24, [phone] [id number] BARBARAHELEN PATIENT CAREMARK ([id number]) PRESCRIPT ION FEP May 24, 2011 [id number] BARBARAHELEN PATIENT Selected Encounter This section includes the information on record at [place] for the Encounter. Date/Time Encounter Type Encounter Description Reason Provider Source Dec 20, 2024 01:30 PM OFFICE O/P EST MOD 30 MIN ONCOLOGY/TUMOR ICD-10-CM E83.110 Hereditary hemochromatosis THEVARY,VALSA MMA IHE Encounter Template Text not used by [place] Assessments - Encounter Diagnoses This section includes the primary and secondary diagnoses documented for the Encounter. Date/Time Primary/Secondary Diagnosis Diagnosis Name Provider Source Dec 20, 2024 10:50 PM PRIMARY Hereditary hemochromatosis SILVIO DENTON [facility] Dec 20, 2024 10:50 PM SECONDARY [facility] Plan of Treatment: Future Appointments (+ 6 months) and Future Tests (+/- 45 days) The Plan of Treatment section includes future care activities for the patient [facility] [place] [facility] This section includes future appointments and future orders which are active, pending or scheduled. Future Appointments This section includes appointments that were scheduled to occur 6 months from the date of the Encounter, up to a maximum of 20 appointments. The data comes from all [place] treatment facilities. Appointment Date/Time Appointment Type Appointme nt Facility Name Feb 05, 2025 02:30 PM AMBULATORY - SURGERY [facility] Pat [facility] Feb 26, 2025 10:30 AM AMBULATORY - NONE [facility] Apr 12, 2025 01:00 PM AMBULATORY - MEDICINE [facility] Apr 12, 2025 01:30 PM AMBULATORY - MEDICINE [facility] Lab Results: +/- 30 days of the encounter This section includes the Chemistry and Hematology Lab Results on record with [place] for the patient. Radiology Reports and Pathology Reports are provided separately, in subsequent sections. Lab Results This section contains the Chemistry/Hematology Results that were resulted 30 days before or 30 daysafter the date of the Encounter. Date/Time Source Result Type Result - Unit Interpretation Reference Range Specimen Type Comment Dec 20, 2024 01:24 PM [facility] FERRITIN SERUM Specimen Type: SERUM No comment entered. Ordering Provider: ROBERTO DENTON Report Released Date/Time: Sep 01, 2024 11:00 AM Reporting Lab: [facility] [address] [facility] [address] Performing Lab: [facility] [address] [facility] [address] FERRITIN 23.58 ng/mL 22-275 Dec 20, 2024 01:24 PM [facility] CBC BLOOD Specimen Type: BLOOD No comment entered. Ordering Provider: ROBERTO DENTON Report Released Date/Time: Sep 01, 2024 11:00 AM Reporting Lab: [facility] [address] [facility] [address] Performing Lab: [facility] [address] [facility] [address] WBC 8.9 10*3/uL 3.6-11.2 RBC 5.73 10*6/uL [...] 0.60 BASOPHILS, ABSOLUTE 0.07 10*3/uL 0.00-0. 20 Vital Signs: All taken on the encounter date This section contains inpatient and outpatient Vital Signs collected on the date of the Encounter. Date/Time Temperature Pulse Blood Pressure Respiratory Rate SP02 Pain Height Weight Body Mass Index Source Dec 20, 2024 01:37 PM 97.7 F 112 /min 137/99 mm[Hg] 18 /min 98 % 223.8 lb [address] [facility] N Encounter Notes: All associated encounter notes This section contains the clinical notes associated to the Encounter. Date/Time Encounter Note(s) Provider Source Dec 20, 2024 04:33 PM HEMATOLOGY AND ONC OLOGY OUTPATIENT NOTE: LOCAL TITLE: HEMATOLOGY ONCOLOGY OUTPATIENT FOLLOW UP ST STANDARD TITLE: HEMATOLOGY AND ONCOLOGY OUTPATIENT NOTE DATE OF NOTE: DEC 20, 2024@16:33 ENTRY DATE: DEC 20, 2024@16:34:11 AUTHOR: ROBERTO DENTON EXP COSIGNER: URGENCY: STATUS: COMPLETED Dx: Hemochromatosis: homozygous (H63D/H63D). Treatment: Phlebotomy prn for frritin > 100.0 and to keep H/H < 16.0/50.0. Interval Hx: Mr Jimenez for regular f/u. He reports of feeling well, overwhelmed since his 18 yr old daughter got admitted with Throid storm. He had heavy alcoholic intake last night [facility]( ETOH intake 4-5 shots of whiskey every night).He denies any head ache, vision problem or joint pain, stroke like feeling, or any cardiac problems. Patient f[facility]u with outside [place] [facility] for the [facility] trt, brought the lab works copy he does every 3 months( noted cbc, cmp,ferritin, b12, folate level, lipid panel, psa etc). He stopped smoking almost 11 yrs ago, used to smoke > 2 ppd before. Received consent for the ther. phl on 08/30/24 which will be good for 1 yr. ROS: A 10 problem focussed ROS was done per interval hx. and as above. PMH: 1) Shoulder joint unstable (SNOMED CT [id number]) 2) Internal derangement of left knee 3) Instability of joint of left ankle 4) Benign essential hypertension 5) Chronic post-traumatic stress disorder 6) Past history of procedure comment: wisdom teeth extraction comment: left index finger foreign body (deep embedded splinter) removal comment: left hand surgery (traumatic infection) comment: 07/04/20 right ulnar decompression at elbow, right median nerve de 7) Hyperlipidemia ([facility] [id number]) 8) Patient Overweight ([facility] [id number]) 9) Allergic Rhinitis ([facility] [id number]) 10) Obstructive Sleep Apnea Syndrome ([facility] [id number]) 11) Testicular Hypofunction ([facility] [id number]) 12) Skin Sensation Disturbance ([facility] [id number]) comment: 03/25/20 emg/ncv: right ulnar nerve entrapment across the elbow wi comment: --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 12/20/2024 16:34 CONFIDENTIAL CURRENT HOME MEDS MA SUMMARY pg. 1 HELEN JIMENEZ [id number] : 1980 AOPM - Active OutPat Meds 1) EPI(EQV-ADRENACLICK)0.3MG/0 .3ML INJCTR INJECT 1 PEN (0.3MG/0.3ML) INTRAMUSCULARLY NEEDED . INJECT 2) LACTOBACILLUS ACIDOPHILUS TAB TAKE 1 TABLET BY MOUTH ONCE A DAY FOR BLOATING 3) VONOPRAZAN 20MG TAB TAKE ONE TABLET BY MOUTH EVERY MORNING 4) MONTELUKAST NA 10MG TAB TAKE ONE TABLET BY MOUTH EVERY EVENING 5) BACLOFEN 10MG TAB TAKE ONE TABLET BY MOUTH TWICE A DAY FOR HEARTBURN MAY CAUSE 6) COLESTIPOL HCL 1GM TAB TAKE TWO TABLETS BY MOUTH EVERY DAY FOR DIARRHEA (OTHER MEDICATIONS 7) DICYCLOMINE HCL 10MG CAP TAKE ONE CAPSULE BY MOUTH THREE TIMES A DAY BEFORE MEALS NEEDED FOR 8) ATORVASTATIN CALCIUM 40MG TAB TAKE ONE-HALF TABLET BY MOUTH EVERY EVENING TO LOWER 9) LISINOPRIL 20MG TAB TAKE ONE-HALF TABLET BY MOUTH ONCE A DAY FOR HEART OR BLOOD PRESSURE 10) ASPIRIN 81MG EC TAB ONCE A DAY 81MG BY MOUTH ONCE A DAY 11) TESTOSTERONE CYP 200MG/ML 1ML IN OIL TWO TIMES PER WEEK 100MG/0.5ML DEEP INTRAMUSCULARLY TWO TIMES PER WEEK Pysical Exam: REviewed vs and weight from today. Date Vital Measurement Qualifiers 12/20/2024 13:37 Temp F (C) 97.7 (36.5) Pulse 112 Respir 18 BP 137/99 Wt lbs (kg)[BMI] 223.8 (101.51)[31*]Estimated, Bed POx (L/Min)(%) 98 GEN: NAD HEENT: NC/AT, MMM CARD: RRR, no m/r/g LUNGS: Clear. ABD: NT/ND, NABS EXT: No edema NEURO: A&Ox3, C[place], no focal deficits LABS: Reviewed labs from today. CBC: WBC 8.9 10*3/uL 12/20/2024 13:24 RBC 5.73 H 10*6/uL 12/20/2024 13:24 HGB 18.0 H g/dL 12/20/2024 13:24 HCT 52.5 H % 12/20/2024 13:24 MCV 91.6 fL 12/20/2024 13:24 MCH 31.4 pg 12/20/2024 13:24 MCHC 34.3 g/dL 12/20/2024 13:24 RDW 13.1 % 12/20/2024 13:24 PLT 247 10*3/uL 12/20/2024 13:24 MPV 11.5 H fL 12/20/2024 13:24 NEUTROPHILS, AUTO % 56 % 12/20/2024 13:24 LYMPHOCYTES, AUTO % 29 % 12/20/2024 13:24 MONOCYTES, AUTO % 10 % 12/20/2024 13:24 EOSINOPHILS, AUTO % 4 % 12/20/2024 13:24 BASOPHILS, AUTO % 1 % 12/20/2024 13:24 NEUTROPHILS, ABSOLUTE 4.98 10*3/uL 12/20/2024 13:24 LYMPHOCYTES, ABSOLUTE 2.54 10*3/uL 12/20/2024 13:24 MONOCYTES, ABSOLUTE 0.92 H 10*3/uL 12/20/2024 13:24 EOSINOPHILS, ABSOLUTE 0.34 10*3/uL 12/20/2024 13:24 BASOPHILS, ABSOLUTE 0.07 10*3/uL 12/20/2024 13:24 Creatinine: No CREATININE EO data found PSA: PROST. SPECIFIC AG.(PB-STL) 0.894 ng/mL 08/30/2024 12:26 PROST. SPECIFIC AG.(PB-STL) 0.771 ng/mL 06/19/2020 12:44 Imaging: Date Procedure CPT Status Case # 12/23/2023 CT ABDOMEN AND PELVIS W/CONTRAST [id number] Verified 3909 No acute process in the abdomen or pelvis. Michael Infante MD ([facility]) I, Eugene Barber, have reviewed the images and report and concur with these findings. Assessment and Plan: # Hemochromatosis - Lab works with ferritin 23.58 and H/H 18.0/52.5. Did therapeutic phlebotomy for the elevated H/H. Our goal for ferritin is to keep <100.0, will keep the H/H in 16.0/50.0 range if possible. - US for liver [...] ETOH abuse and not hydrating well. H/H 18.0/52.5 today, done therapeutic phlebotomy today. Pt still not able to wear the cpap machine not more than 1-3 hrs d/t repeated respitory issues. Also on testosterone trt 100 mg IMx2 weekly (brought records today), [facility]. Testosterone stays in the 500-600 range mostly, advised to f/u with outside privider for titration [...] from 2020 - 2021. He continues drinking 4-5 shots now every day now. Encouraged complete cessation. # Time spent for the f/f visit, review, discussion, documentation and wriitng order was > 35 minutes. # RTC 04/12/25. /lachelle/ Silvio Denton,MSN,ACNP-BC DIRECTOR OF COMPLIANCE,HEMATOLOGY/ONCOLOGY Signed: 12/20/2024 22:50 ROBERTO DENTON [facility]
--- OUTSIDE RECORDS SUMMARY | 2024-12-22 20:09 | XMS_ITS | Encounter Summary ---
Author Name [facility] [place] [facility] [place] [facility] [place] Address [address] [place] [address] Care Team Providers Care Computer Assistant Name Role Phone URI GALINDO Primary Care [...] FEP-B ASIC- PPO May 24, 2011 111 [id number] [phone] HELEN JIMENEZ PATIENT CAREMARK ([id number]) PRESCRIPT ION FEP May 24, 2011 [id number] HELEN JIMENEZ PATIENT Selected Encounter This section includes the information on record at [place] for the Encounter. Date/Time Encounter Type Encounter Description Reason Provider Source Sep 19, 2024 10:30 AM OFFICE O/P NEW LOW 30 MIN DERMATOLOGY ICD-10-CM L81.4 Other melanin hyperpigmentation MARGARITO FITCH IHMachelle Encounter Template Text not used by [facility] Assessments - Encounter Diagnoses This section includes the primary and secondary diagnoses documented for the Encounter. Date/Time Primary/Secondary Diagnosis Diagnosis Name Provider Source Sep 19, 2024 04:41 PM PRIMARY Other melanin hyperpigmentation HORTENCIA MASTERSON [facility] Sep 19, 2024 04:41 PM SECONDARY Bit/stung by nonvenom insect & oth nonvenom arthropods, init MARGARITO FITCH [facility] Sep 19, 2024 04:41 PM SECONDARY Hemangioma of skin and subcutaneous tissue MARGARITO FITCH [facility] Sep 19, 2024 04:41 PM SECONDARY Melanocytic nevi, unspecified HORTENCIA MASTERSON [facility] Sep 19, 2024 04:41 PM SECONDARY Other seborrheic keratosis LITTLEMARGARITO [facility] Plan of Treatment: Future Appointments (+ 6 months) and Future Tests (+/- 45 days) The Plan of Treatment section includes future care activities for the patient [facility] [place] [facility] This section includes future appointments and future orders which are active, pending or scheduled. Future Appointments This section includes appointments that were scheduled to occur 6 months from the date of the Encounter, up to a maximum of 20 appointments. The data comes from all [place] treatment facilities. Appointment Date/Time Appointment Type Appointme nt Facility Name Nov 01, 2024 08:00 AM AMBULATORY - MEDICINE [facility] Dec 20, 2024 01:30 PM AMBULATORY - MEDICINE [facility] Dec 20, 2024 02:00 PM AMBULATORY - MEDICINE [facility] Feb 05, 2025 02:30 PM AMBULATORY - SURGERY [facility] Feb 26, 2025 10:30 AM AMBULATORY - NONE [facility] Lab Results: +/- 30 days of the [...] Type Comment Aug 30, 2024 12:26 PM [facility] FERRITIN SERUM Specimen Type: SERUM No comment entered. Ordering Provider: ROBERTO DENTON Report Released Date/Time: Aug 17, 2024 09:49 AM Reporting Lab: [facility] [address] [facility] [address] Performing Lab: [facility] [address] [facility] [address] FERRITIN 34.45 ng/mL 22-275 Aug 30, 2024 12:26 PM [facility] CBC BLOOD Specimen Type: BLOOD No comment entered. Ordering Provider: ROBERTO DENTON Report Released Date/Time: Aug 17, 2024 09:49 AM Reporting Lab: [facility] [address] [facility] [address] Performing Lab: [facility] [address] [facility] [address] WBC 8.1 10*3/uL 3.6-11.2 RBC 5.72 10*6/uL [...] 0.00-0. 20 Aug 30, 2024 12:26 PM [facility] PROST. SPECIFIC AG.(PB-STL) SERUM Specimen Ty pe: SERUM Comment: The listed sex of this patient may not be a typical indication for this test. Therefore, reference ranges or interpretive criteria listed may not be valid. Clinical correlation suggested. Ordering Provider: AZEEM PRESCOTT Report Released Date/Time: Aug 25, 2024 09:06 AM Reporting Lab: [address] [address] Performing Lab: [address] [address] PROST. SPECIFIC AG.(PB-STL) 0.894 ng/mL 0-4 Aug 30, 2024 12:26 PM [facility] COMPREHENSIVE METABOLIC PANEL PLASMA Specimen Type: PLASMA Comment: LDL calculation invalid when Triglyceride exceeds 250 mg/dl Ordering Provider: AZEEM PRESCOTT Report Released Date/Time: Aug 25, 2024 09:06 AM Reporting Lab: [address] [address] Performing Lab: [address] [address] CREATININE 1.22 mg/dL 0.7-1.3 UREA NITROGEN 12.2 [...] 75.9 >60 Aug 30, 2024 12:26 PM [facility] LIPID PANEL (STL) PLASMA Specimen Type: PLASM A Comment: LDL calculation invalid when Triglyceride exceeds 250 mg/dl Ordering Provider: AZEEM PRESCOTT Report Released Date/Time: Aug 25, 2024 09:06 AM Reporting Lab: [address] [address] Performing Lab: [address] [address] CHOLESTEROL 175 mg/dL 0-200 TRIGLYCERIDE 366 mg/dL H 0-150 DIRECT LDL 78 mg/dL L >100 CALCULATED LDL comment mg/dL HDL(New) 64 mg/dL >40 Aug 30, 2024 12:26 PM [facility] VITAMIN D, 25-HYDROXY SERUM Specimen Type: SE RUM Comment: The listed sex of this patient may not be a typical indication for this test. Therefore, reference ranges or interpretive criteria listed may not be valid. Clinical correlation suggested. Ordering Provider: AZEEM PRESCOTT Report Released Date/Time: Aug 25, 2024 09:06 AM Reporting Lab: [facility] [address] [facility] [address] Performing Lab: [facility] [address] [place] [address] VITAMIN D, 25-HYDROXY 59.9 ng/mL 30-96 Aug 30, 2024 12:26 PM [facility] HGA1C BLOOD Specimen Type: BLOOD No comment entered. Ordering Provider: AZEEM PRESCOTT Report Released Date/Time: Aug 25, 2024 09:06 AM Reporting Lab: [facility] [address] [facility] [address] Performing Lab: [facility] [address] [place] [address] HGA1C 5.3 4.0-6.0 Radiology Reports: +/- 30 days of the [...] the Encounter. The data comes from all [place] treatment facilities. Date/Time Radiology Report Provider Source Aug 30, 2024 01:28 PM KNEE,LEFT, 3 VIEWS : HELEN JIMENEZ [id number] -1980 M Exm Date: AUG 30, 2024@13:28 Req Phys: AZEEM PRESCOTT Pat Loc: [facility] PACT 5 NEW PATIENT ( Img Loc: [facility] RADIOLOGY SUITE Service: Unknown [facility] [address] [place] [address] (Case [id number] COMPLETE) KNEE,LEFT, 3 VIEWS (RAD Detailed) CPT:86428 Proc Modifiers : LEFT Reason for Study: pain Clinical History: Report Status: Verified Date Reported: AUG 30, 2024 Date Verified: AUG 30, 2024 Fork Lift Truck Operator E-Sig:/ES/TIM ALEXANDER MD Report: 3 views History provided does not specifically explain the clinical reason and/or location of symptoms for the requested examination. comparison: 01/31/2021 No acute fracture or dislocation. No other significant osseous abnormality Other findings: Impression: No acute fracture Primary Interpreting Staff: TIM ALEXANDER MD, Radiologist (Fork Lift Truck Operator) /TIM [facility] Aug 30, 2024 01:28 PM FOOT,LEFT 3 VIEWS OR MORE: BARBARAHELNEY [id number] -1980 M Ex Date: AUG 30, 2024@13:28 Req Phys: AZEEM PRESCOTT Pat Loc: [facility] PACT 5 NEW PATIENT ( [facility] Loc: [facility] RADIOLOGY SUITE Service: Unknown [facility] [address] [place] [address] (Case [id number] COMPLETE) FOOT,LEFT 3 VIEWS OR MORE (RAD Detailed) CPT:07702 Proc Modifiers : LEFT Reason for Study: pain Clinical History: Report Status: Verified Date Reported: AUG 30, 2024 Date Verified: AUG 30, 2024 Fork Lift Truck Operator E-Sig:/ES/MICHELLE SHERIDAN Report: EXAMINATION: FOOT,LEFT 3 VIEWS [...] process. Primary Interpreting Staff: MICHELLE SHERIDAN RADIOLOGIST (Fork Lift Truck Operator) /MICHELLE CÁRDENAS [facility] Aug 30, 2024 01:28 PM FOOT,RIGHT,3 VIEWS OR MORE: HELEN JIMENEZ [id number] -1980 M Exm Date: AUG 30, 2024@13:28 Req Phys: AZEEM PRESCOTT Pat Loc: [facility] PACT 5 NEW PATIENT ( Img Loc: [facility] RADIOLOGY SUITE Service: Unknown [facility] [address] [place] [address] (Case [id number] COMPLETE) FOOT,RIGHT,3 VIEWS OR MORE (RAD Detailed) CPT:91180 Proc Modifiers : RIGHT Reason for Study: pain Clinical History: Report Status: Verified Date Reported: AUG 30, 2024 Date Verified: AUG 30, 2024 Fork Lift Truck Operator E-Sig:/ES/MICHELLE SHERIDAN Report: EXAMINATION: FOOT,RIGHT,3 VIEWS OR MORE DATE: 08/30/2024 1:28 PM HISTORY: pain. COMPARISON: None. VIEWS:3 FINDINGS:Mild hallux focus 20. No fracture, subluxation or dislocation. No focal destructive process. Ankle mortise intact. Minor lateral soft tissue prominence. Impression: Minimal hallux valgus deformity; minor lateral soft tissue prominence but no acute injury or focal destructive process. Primary Interpreting Staff: MICHELLE SHERIDAN RADIOLOGIST (Fork Lift Truck Operator) /MICHELLE CÁRDENAS [facility] Encounter Notes: All associated encounter notes This section contains the clinical notes associated to the Encounter. Date/Time Encounter Note(s) Provider Source Sep 19, 2024 10:36 AM DERMATOLOGY CONSUL T: LOCAL TITLE: DERMATOLOGY CONSULT STL STANDARD TITLE: DERMATOLOGY CONSULT DATE OF NOTE: SEP 19, 2024@10:36 ENTRY DATE: SEP 19, 2024@10:36:32 AUTHOR: HORTENCIA MASTERSON COSIGNER: MARGARITO FITCH URGENCY: STATUS: COMPLETED DERMATOLOGY CONSULT STL Has ADDENDA HELEN JIMENEZ is a 44 year old WHITE MALE who presents for consult for: numerous moles, requesting skin check. family hx of melanoma Patient reports moles on left cheek, occipital and temporal scalp, upper back for evaluation. Notes that moles on face and scalp sometimes irritated with shaving/hair cuts. Dad with history of melanoma diagnoses in 60s/70s. No personal history of skin cancer. No history of tanning bed exposure. Works outside alot. Otherwise, no new, changing, bleeding, non healing lesions of concern. Allergies: SEASONAL ALLERGIES PE: General Appearance: Well-developed and well-nourished. No acute distress. Neuro/Psych: Alert and cooperative. Appropriate affect. Skin: Scattered homogenous mansfield/brown macules and papules on face, trunk, extremtities Scattered mansfield/brown struck on appearing papules and plaques on face, trunk, extremities Scattered homogenous well circumscribed red papules on trunk, extremities tick attatched on left axilla with surrounding erythema OTHERWISE: Face: WNL Ears: WNL Scalp, Hair: WNL Neck: WNL Chest: WNL Abd: WNL Back: WNL Upper Extremities: WNL Nails: WNL A/P: Multiple benign nevi, including left cheek, mid occipital scalp, temporal scalp, upper back Lentigines - Benign reassurance provided - Recommend sunscreen with SPF30 or greater and sun protective clothing. - Reviewed sun protection strategies and skin cancer warning signs - Continue monthly self-skin exams and regular MD skin exams Seborrheic keratoses - Benign reassurance provided - No treatment indicated Shah Angiomas - Benign reassurance provided - No treatment indicated Tick bite, left axilla - Tick visualized today on exam - Patient removed tick with hands, no tick particles retained Return to clinic 1 year or PRN /lachelle/ Hortencia Masterson MD Dermatology Resident Signed: 09/19/2024 16:43 /mario Fitch MD PAEDIATRIC SURGEON Cosigned: 09/20/2024 09:29 09/20/2024 ADDENDUM STATUS: COMPLETED Discussed case with resident. Agree with history, physical examination, assessment, and plan. /mario Fitch MD PAEDIATRIC SURGEON Signed: 09/20/2024 09:30 HORTENCIA MASTERSON [facility]
[2024-12-22] MEDS: PANTOPRAZOLE SODIUM IV 40 MG VIAL IV PUSH (20:10)
--- OUTSIDE RECORDS SUMMARY | 2024-12-22 20:10 | XMS_ITS | Encounter Summary ---
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 Date/Time Encounter Type Encounter Description Reason Provider Source Mar 21, 2024 08:56 AM Outpatient Encounter COMMUNITY CARE CONSULT KAYLEE DAVIES Encounter Template Text not used by [place] Plan of Treatment: Future Appointments (+ 6 [...] 20 appointments. The data comes from all [place] treatment facilities. Appointment Date/Time Appointment Type Appointme nt Facility Name Apr 10, 2024 03:00 PM AMBULATORY - SURGERY [facility] Apr 25, 2024 02:00 PM [facility]ATORY - PS[facility]CHIATRY [facility] Apr 25, 2024 02:00 PM AMBULATORY - PSYCHIATRY [facility] May 01, 2024 04:00 PM AMBULATORY - MEDICINE [facility] May 12, 2024 11:30 AM AMBULATORY - MEDICINE [facility] May 12, 2024 12:00 PM AMBULATORY - MEDICINE [facility] Jun 09, 2024 10:30 AM AMBULATORY - PSYCHIATRY [facility] Jun 09, 2024 10:30 AM [facility]BUL[facility]ORY - PS[facility]IATRY [facility] Jun 21, 2024 08:20 AM AMBULATORY - MEDICINE [facility] Jul 11, 2024 01:00 AM AMBULATORY - SURGERY [facility] Jul 21, 2024 10:30 AM AMBULATORY - PS[facility]CHIATRY [facility] Jul 21, 2024 10:30 AM AMBULATORY - PSYCHIATRY [facility] Aug 25, 2024 08:30 AM AMBULATORY - MEDICINE [facility] Aug 30, 2024 01:00 PM AMBULATORY - MEDICINE [facility] Aug 30, 2024 01:30 PM AMBULATORY - MEDICINE [facility] Sep 19, 2024 10:30 AM AMBULATORY - MEDICINE [facility] Lab Results: +/- 30 days of the encounter This section includes the Chemistry and Hematology Lab Results on record with [place] for the patient. Radiology Reports and Pathology Reports are provided separately, in subsequent sections. Lab Results This section contains the Chemistry/Hematology Results that were resulted 30 days before or 30 daysafter the date of the Encounter. Date/Time Source Result Type Result - Unit Interpretation Reference Range Specimen Type Comment Mar 15, 2024 10:05 AM [facility] LIPASE PLASMA Specimen Type: PLASMA Comment: No hemolysis noted. Ordering Provider: ROBERT GOVEA Report Released Date/Time: Mar 15, 2024 10:01 AM Reporting Lab: [facility] [address] [address] Performing Lab: [facility] [address] [place] [address] LIPASE 48 U/L 8-78 Mar 15, 2024 10:05 AM [facility] COMPREHENSIVE METABOLIC PANEL PLASMA Specimen Type: PLASMA Comment: No hemolysis noted. Ordering Provider: ROBERT GOVEA Report Released Date/Time: Mar 15, 2024 10:01 AM Reporting Lab: [address] [address] Performing Lab: [address] [address] CREATININE 1.31 mg/dL H 0.7-1.3 UREA NITROGEN [...] 70.1 >60 Mar 15, 2024 10:05 AM [facility] CBC BLOOD Specimen Type: BLOOD No comment entered. Ordering Provider: ROBERT GOVEA Report Released Date/Time: Mar 15, 2024 10:01 AM Reporting Lab: [facility] [address] [address] Performing Lab: [address] [address] WBC 7.4 10*3/uL 3.6-11.2 RBC 5.90 10*6/uL [...] Encounter. Date/Time Encounter Note(s) Provider Source Mar 21, 2024 08:57 AM NONVA NOTE: LOCAL TITLE: COMMUNITY CARE-CARE COORDINATION PLAN NOTE [address] [facility] TITLE: NONVA NOTE DATE OF NOTE: MAR 21, 2024@08:57 ENTRY DATE: MAR 21, 2024@08:57:31 AUTHOR: KAYLEE DAVIES COSIGNER: URGENCY: STATUS: COMPLETED Community Care Consult: ENT Consult No: [id number] [facility] Referral #: [id number] Community Provider or Hospital Information Community Provider Information Provider Name: [facility] Provider Address: [address] [place] [address] City: [place] State: [place] Provider Provider Provider Email: Chief Complaint: Allergy Testing, Allergic Rhinitis Patient Admitted? No Level of Care Coordination Moderate Care Coordination was determined from: Chart Review Facility Community Care Office Contact Care Coordination Point of Contact: Kaylee Davies RN Services: Basic Care Coordination Services Monitoring and coordination of Rehab/PT Services Direct communication to referring provider Care management, if appropriate Plan: Will follow until consult is scheduled. Will navigate services regarding protocol; monitoring and coordinating CC appt, monitor disease process, report significant findings, communicate with /care team, transition care to the referring provider. /lachelle/ KAYLEE DAVIES MSN RN REGISTERED NURSE Signed: 03/21/2024 09:[address] [facility]
[2024-12-22] MEDS: LORazepam INJ (*CRX) 2 MG/ML VIAL 1 MG IV PUSH (20:11)
--- OUTSIDE RECORDS SUMMARY | 2024-12-22 20:11 | XMS_ITS | Continuity of Care Document ---
Author Name [facility] Organization [facility] Care Team Providers Care Electronic Engineering Draftsperson Name Role Phone [facility] Unavailable Unavailable Problems Combined list of problems from Department of Defense and Veterans Affairs facilities. It does not include entries that were removed or entered in error. Problem Status Onset Date Problem Type Date of Resolution Comments Source UPPER RESPIRATORY INFECTION Inactive 013 Condition [facility] NICOTINE-RELATED DISORDERS Inactive 013 Condition [facility] Physical Examination Inactive 013 Condition [facility] Urine Tests Nonspecific Abnormal Findings Active Condition [facility] tobacco use Active Condition [facility] Metabolic Tests Nonspecific Abnormal Findings Active Condition [facility] HYPERCHOLESTEROLEMIA Active Condition D oD ESSENTIAL HYPERTRIGLYCERIDEMIA Inactive Condition [facility] ESSENTIAL HYPERTENSION Active Condition [facility] ankle joint pain Active Condition [facility] joint pain, localized in the knee Active Condition [facility] Patient Education - Self-Examination Of Testes Inactive Condition [facility] visit for: services physical Active Condition [facility]D visit for: examination of subpopulation Active Condition [facility] visit for: ears / hearing exam Active Condition [facility] Patient Education - Injury Prevention Active Condition [facility] ASSESS PATIENT CONDITION WORK-RELATED OCCUPATIONAL DISEASE Active Condition [facility] Alcohol abuse Active Condition [facility] Allergic Rhinitis (SCT 55084469) Active Condition [facility] Altered bowel function Active Condition [facility] Benign essential hypertension Active Condition [facility] Chronic post-traumatic stress disorder Active Condition [facility] Erectile Dysfunction (SCT 193054858) Active Condition [facility] Exposure to potentially hazardous substance (SCT 667736251434718) Active Condition Aug 30 5 Entered By: IVELISSE SINGH Comment: Entered automatically through [facility] Problem List documentation program [facility] Family history of cancer of colon Active Condition [facility] GERD - Gastro-Esophageal Reflux Disease (SCT 917477620) Active Condition [facility] Hereditary hemochromatosis Active Condition [facility] Hyperlipidemia (SCT 14055542) Active Condition [facility] 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 [facility] Internal derangement of left knee Active Condition [facility] Obstructive Sleep Apnea Syndrome ([facility] 38308346) Active Condition [facility] Past history of procedure Active Condition Dec 12, 2019 Entered By: MYNOR SALINAS Comment: wisdom teeth extractionJul 2019 Entered By: MYNOR SALINAS Comment: left index finger foreign body (deep embedded splinter) removalJul 2019 Entered By: MYNOR SALINAS Comment: left hand surgery (traumatic infection)Jul 17, 2020 Entered By: MYNOR SALINAS Comment: 07/04/20 right ulnar decompression at elbow, right median nerve decompression at wrist [facility] Patient Overweight ([facility] 508620840) Active Condition [facility] Polycythemia Active Condition [facility] Shoulder joint unstable (SNOMED CT 588261593) Active Condition [facility] Skin Sensation Disturbance ([facility] 38656056) Active Condition Mar 25, 2020 Entered By: MYNOR SALINAS Comment: 03/25/20 emg/ncv: right ulnar nerve entrapment across the elbow with sign of acute denervation,Mar 25, 2020 Entered By: MYNOR SALINAS Comment: --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, 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 [facility] Testicular Hypofunction ([facility] 485522278) Active Condition [facility] Pain in joint involving ankle and foot Inactive Condition 05/02/2008 [facility] Tobacco Use Disorder * (ICD-9-CM 305.1) Inactive Condition 12/13/2019 [facility] Diagnosis: ICD-10-CM E83.110 Hereditary hemochromatosis Active Diagnosis [facility] Diagnosis: ICD-10-CM M79.641 Pain in right hand Active Diagnosis [facility] Diagnosis: ICD-10-CM K21.9 Gastro-esophageal reflux disease without esophagitis Active Diagnosis [facility] Diagnosis: ICD-10-CM L81.4 Other melanin hyperpigmentation Active Diagnosis [facility] Diagnosis: ICD-10-CM I10 Essential (primary) hypertension Active Diagnosis [facility] Diagnosis: ICD-10-CM G47.33 Obstructive sleep apnea (adult) (pediatric) Active Diagnosis [facility] Diagnosis: ICD-10-CM F43.12 Post-traumatic stress disorder, chronic Active Diagnosis [facility] Diagnosis: ICD-10-CM M79.642 Pain in left hand Active Diagnosis [facility] Diagnosis: ICD-10-CM R10.13 Epigastric pain Active Diagnosis [facility] Diagnosis: ICD-10-CM R53.1 Weakness Active Diagnosis [facility] Diagnosis: ICD-10-CM G56.01 Carpal tunnel syndrome, right upper limb Active Diagnosis [facility] Diagnosis: ICD-10-CM R12 Heartburn Active Diagnosis [facility] Diagnosis: ICD-10-CM Z01.818 Encounter for other preprocedural examination Active Diagnosis [facility] Diagnosis: ICD-10-CM R10.10 Upper abdominal pain, unspecified Active Diagnosis [facility] Diagnosis: ICD-10-CM G56.22 Lesion of ulnar nerve, left upper limb Active Diagnosis [facility] Diagnosis: ICD-10-CM G56.02 Carpal tunnel syndrome, left upper limb Active Diagnosis [facility] Medications Combined list of outpatient medications from Department of Defense and [facility] Affairs facilities.Medications provided include 1) outpatient medications from the last 15 months, and 2) patient-reported medications. Medication Details Route Status Patient Instructions Prescription Expires Prescription Number Last Dispense Date Ordering Provider Order Date Order Qty Source ASPIRIN 81MG TAB,EC TAKE ONE TABLET BY MOUTH ONCE A DAY ORAL ACTIVE PACE,VICT OR M 2019 [facility] atorvastati n (U/D) 40 MG ORAL TAB TAKE ONE-HALF TABLET BY MOUTH EVERY EVENING TO LOWER CHOLESTE ROL.REPO RT ANY UNEXPLAI KARELY MUSCLE PAIN OR WEAKNESS TO PROVIDER 11/11/2024 [id number] WATKINS, YENNY A 2023 45 [facility] ATORVASTATI N CA 40MG TAB TAKE ONE-HALF TABLET BY MOUTH EVERY EVENING TO LOWER CHOLESTE ROL.REPO RT ANY UNEXPLAI KARELY MUSCLE PAIN OR WEAKNESS TO PROVIDER ORAL ACTIVE 11/20/2025 [id number] 5 SUAREZ,UT TTISA 2024 45 [facility] ATORVASTATI N CA 40MG TAB TAKE ONE-HALF TABLET BY MOUTH EVERY EVENING TO LOWER CHOLESTE ROL.REPO RT ANY UNEXPLAI KARELY MUSCLE PAIN OR WEAKNESS TO PROVIDER ORAL DISCONT INUED 06/07/2025 [id number] 5 SUAREZ,UT TTISA 2024 45 [facility] ATORVASTATI N CA 40MG TAB TAKE ONE-HALF TABLET BY MOUTH EVERY EVENING TO LOWER CHOLESTE ROL.REPO RT ANY UNEXPLAI KARELY MUSCLE PAIN OR WEAKNESS TO PROVIDER ORAL DISCONT INUED 11/11/2024 [id number] 4 SUAREZ,UT TTISA 2023 45 [facility] BACLOFEN 10MG TAB TAKE ONE TABLET BY MOUTH TWICE A DAY FOR HEARTBUR N MAY CAUSE DROWSINE SS ORAL ACTIVE 11/02/2025 [id number] 5 Brice HAMILTON ALECIA D 2024 60 [facility] BACLOFEN 10MG TAB TAKE ONE TABLET BY MOUTH TWICE A DAY FOR HEARTBUR N MAY CAUSE DROWSINE SS ORAL DISCONT INUED 03/16/2025 [id number] GAEL GOVEA S 2023 60 [facility] BUPROPION HCL 150MG 24HR TAB,SA TAKE THREE TABLETS BY MOUTH ONCE A DAY FOR PTSD. SWALLOW WHOLE - DO NOT CRUSH OR CHEW. ORAL DISCONT INUED BY PROVIDE R 04/29/2024 [id number] 4 ASHLEY SHIN I 2023 270 [facility] BUPROPION HCL 150MG 24HR TAB,SA TAKE THREE TABLETS BY MOUTH ONCE A DAY FOR PTSD. SWALLOW WHOLE - DO NOT CRUSH OR CHEW. ORAL DISCONT INUED 03/06/2024 [id number] 4 ASHLEY SHIN I 2023 270 [facility] COLESTIPOL HCL 1GM TAB TAKE TWO TABLETS BY MOUTH EVERY DAY FOR DIARRHEA (OTHER MEDICATI ONS SHOULD BE TAKEN 1 HOUR BEFORE OR 4 HOURS AFTER COLESTIP OL) ORAL ACTIVE 11/02/2025 [id number] 5 ALFONSO,A ALECIA D 2024 60 [facility] COLESTIPOL HCL 1GM TAB TAKE TWO TABLETS BY MOUTH EVERY DAY FOR DIARRHEA (OTHER MEDICATI ONS SHOULD BE TAKEN 1 HOUR BEFORE OR 4 HOURS AFTER COLESTIP OL) ORAL DISCONT INUED 03/16/2025 [id number] GAEL GOVEA S 2023 60 [facility] CYCLOBENZAP RINE HCL (cyclobenza ramona HCl), 10 MG, TABLET, ORAL, [facility], 1000 ea. BOTTLE Active [id number] 2023 14 [facility] y DICYCLOMINE HCL 10MG CAP TAKE ONE CAPSULE BY MOUTH THREE TIMES A DAY BEFORE MEALS NEEDED FOR IRRITABL E BOWEL SYNDROME PAIN ORAL ACTIVE 11/02/2025 [id number] ALFONSO,A ALECIA D 2024 270 [facility] EPINEPHRINE (EQV-ADRENA CLICK) 0.3MG/0.3ML INJECTOR INJECT 1 PEN (0.3MG/0 .3ML) INTRAMUS CULARLY NEEDED . INJECT MEDICATI ON INTRAMUS CULARLY OR SUBCUTAN EOUSLY TO LATERAL THIGH THROUGH CLOTHING IF NECESSAR Y FOR ANAPHYLA CTIC REACTION INTRAM USCULA R ACTIVE 03/30/2025 [id number] AVELINO PANTOJA 2023 2 [facility] ESOMEPRAZOL E MAGNESIUM 40MG CAP,EC TAKE ONE CAPSULE BY MOUTH TWO TIMES A DAY BEFORE MEALS FOR GASTROES OPHAGEAL REFLUX DISEASE (TAKE 1 HOUR BEFORE A MEAL) ORAL DISCONT INUED 03/17/2025 [id number] 5 GAEL GOVEA S 2023 60 [facility] famotidine (U/D) 20 MG ORAL TAB TAKE ONE TABLET BY MOUTH TWICE DAILY NEEDED TO LOWER STOMACH ACID 10/29/2024 [id number] SAMY SUAREZ 2023 180 [facility] FAMOTIDINE 20MG TAB TAKE ONE TABLET BY MOUTH TWICE DAILY NEEDED TO LOWER STOMACH ACID ORAL 10/29/2024 [id number] 5 ME MAXIMUS SUAREZ 2023 180 [facility] HYDROXYZINE HCL 25MG TAB TAKE ONE TABLET BY MOUTH THREE TIMES A DAY NEEDED FOR ANXIETY *MAY CAUSE DROWSINE SS* ORAL DISCONT INUED BY YU Carvajal 04/29/2024 [id number] 4 ASHLEY SHIN I 2023 270 [facility] HYDROXYZINE HCL 25MG TAB TAKE ONE TABLET BY MOUTH THREE TIMES A DAY NEEDED FOR ANXIETY *MAY CAUSE DROWSINE SS* ORAL DISCONT INUED 03/06/2024 [id number] 4 ASHLEY SHIN I 2023 270 [facility] LACTOBACILL US ACIDOPHILUS TAB TAKE 1 TABLET BY MOUTH ONCE A DAY FOR BLOATING ORAL ACTIVE 06/27/2025 [id number] 5 GAEL GOVEA 2024 100 [facility] lisinopril (U/D) 20 MG ORAL TAB TAKE ONE-HALF TABLET BY MOUTH ONCE A DAY FOR HEART OR BLOOD PRESSURE 11/11/2024 [id number] YENNY WATKINS 2023 45 [facility] LISINOPRIL 20MG TAB TAKE ONE-HALF TABLET BY MOUTH ONCE A DAY FOR HEART OR BLOOD PRESSURE ORAL ACTIVE 12/04/2025 [id number] 5 ISABELKRISTI ReynagaAZEEM C 2024 45 [facility] LISINOPRIL 20MG TAB TAKE ONE-HALF TABLET BY MOUTH ONCE A DAY FOR HEART OR BLOOD PRESSURE ORAL DISCONT INUED 09/04/2024 [id number] 5 ISABELKRISTI ReynagaAZEEM C 2024 45 [facility] LISINOPRIL 20MG TAB TAKE ONE-HALF TABLET BY MOUTH ONCE A DAY FOR HEART OR BLOOD PRESSURE ORAL DISCONT INUED 07/20/2024 [id number] ISABELAZEEM TOBIN 2023 45 [facility] LISINOPRIL 20MG TAB TAKE ONE-HALF TABLET BY MOUTH ONCE A DAY FOR HEART OR BLOOD PRESSURE ORAL DISCONT INUED 11/11/2024 [id number] ME DANIELA TTISA 2023 45 [facility] LISINOPRIL 20MG TAB TAKE ONE-HALF TABLET BY MOUTH ONCE A DAY FOR HEART OR BLOOD PRESSURE ORAL DISCONT INUED 07/20/2024 [id number] ME DANIELA TTISA 2023 45 [facility] MIRTAZAPINE 15MG TAB TAKE ONE-HALF TABLET BY MOUTH AT BEDTIME NEEDED ORAL DISCONT INUED BY YU R 04/29/2024 [id number] ASHLEY SHIN I 2023 45 [facility] MIRTAZAPINE 15MG TAB TAKE ONE-HALF TABLET BY MOUTH AT BEDTIME NEEDED ORAL DISCONT INUED 03/06/2024 [id number] ASHLEY SHIN I 2023 45 [facility] MONTELUKAST (U/D) 10 MG ORAL TAB TAKE ONE TABLET BY MOUTH EVERY EVENING 11/11/2024 [id number] YENNY WATKINS 2023 90 [facility] MONTELUKAST NA 10MG TAB TAKE ONE TABLET BY MOUTH EVERY EVENING ORAL ACTIVE 10/24/2025 [id number] 5 DANIELA TTISA 2024 90 [facility] MONTELUKAST NA 10MG TAB TAKE ONE TABLET BY MOUTH EVERY EVENING ORAL DISCONT INUED 05/11/2025 [id number] 5 SUAREZ TTISA 2023 90 [facility] MONTELUKAST NA 10MG TAB TAKE ONE TABLET BY MOUTH EVERY EVENING ORAL DISCONT INUED 11/11/2024 [id number] DANIELA TTISA 2023 90 [facility] NAPROXEN (NAPROXEN), 500MG, TABLET, ORAL, [employer] PHARMA, 500 ea. BOTTLE Active [id number] 2023 20 [facility] y OLANZAPINE 5MG TAB TAKE ONE-HALF TABLET BY MOUTH AT BEDTIME NEEDED FOR SLEEP. USE SPLIT TABLETS WITHIN 7 DAYS. ORAL DISCONT INUED BY YU Carvajal 04/29/2024 [id number] ASHLEY SHIN I 2023 45 [facility] OLANZAPINE 5MG TAB TAKE ONE-HALF TABLET BY MOUTH AT BEDTIME NEEDED FOR SLEEP. USE SPLIT TABLETS WITHIN 7 DAYS. ORAL DISCONT INUED 03/06/2024 [id number] 4 ASHLEY SHIN I 2023 45 [facility] OMEPRAZOLE 40MG CAP,EC TAKE ONE CAPSULE BY MOUTH TWO TIMES A DAY BEFORE MEALS FOR GASTROES OPHAGEAL REFLUX DISEASE TAKE 30 MINUTES PRIOR TO FOOD. ORAL DISCONT INUED 03/28/2024 [id number] GAEL GOVEA 2023 180 [facility] PANTOPRAZOL E NA 40MG TAB,EC TAKE ONE TABLET BY MOUTH TWICE A DAY FOR GASTROES OPHAGEAL REFLUX DISEASE TAKE 30 MINUTES BEFORE MEAL(S) ORAL DISCONT INUED BY PROVIDE R 12/23/2024 [id number] VU,NORMA D 2023 60 [facility] PANTOPRAZOL E NA 40MG TAB,EC TAKE ONE TABLET BY MOUTH EVERY MORNING BEFORE A MEAL TAKE 30 MINUTES BEFORE MEAL(S) ORAL DISCONT INUED 12/07/2024 [id number] 4 MARTHA KEYS 2023 90 [facility] PANTOPRAZOL E NA 40MG TAB,EC TAKE ONE TABLET BY MOUTH EVERY MORNING BEFORE A MEAL TAKE 30 MINUTES BEFORE MEAL(S) ORAL DISCONT INUED 02/24/2024 [id number] Ayush TOMAS N 2023 90 [facility] TESTOSTERON E CYPIONATE 200MG/ML INJ,1ML (IN OIL) INJECT 100MG/0. 5ML DEEP INTRAMUS CULARLY TWO TIMES PER WEEK INTRAM USCULA R ACTIVE PACE,VICT OR M 2020 [facility] VONOPRAZAN 20MG TAB TAKE ONE TABLET BY MOUTH EVERY MORNING ORAL ACTIVE 06/28/2025 [id number] 5 GAEL GOVEA S 2024 30 [facility] Allergies, Adverse Reactions, Alerts Combined list of allergies from Department of Defense and Veterans Affairs facilities. It does not include entries that were removed or entered in error. Substance Category Reaction Severity Reaction type Status Date Reported Comments Source No Known Allergies Drug allergy (disorder) active 2 [place], [place] SEASONAL ALLERGIES Propensity to adverse reaction (finding) Sneezing, Contact dermatitis active 8 [facility] Immunizations Combined list of available immunizations from the Department of Defense and Veterans Affairs facilities. 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 Comments Source TDAP 2020 NONE 115 complet ed Completed Series, [facility] COVID-19 (MODERNA), MRNA, LNP-S, PF, 100 MCG/0.5 ML DOSE 2 2020 207 complet ed [facility] COVID-19 (MODERNA), MRNA, LNP-S, PF, 100 MCG/0.5 ML DOSE 1 2020 207 complet ed [facility] INFLUENZA, UNSPECIFIED FORMULATION 2019 88 complet ed [facility] influenza virus vaccine, unspecified formulation 1 2018 [id number] Seqirus (SEQ) comple t ed influenza virus vaccine, unspecifi ed formulati on DoD PNEUMOCOCCAL POLYSACCHARID E [id number] 1 2018 33 complet ed [employer] ON - FROM OTHER REGISTRY, [facility] anthrax vaccine 5 2017 [id number] [employer] [place] ([facility]) complet ed anthrax vaccine DoD typhoid Vi capsular polysaccharid e vaccine 1 2017 [id number] Sanofi Pasteur (PMC) complet ed typhoid Vi capsular polysacch aride vaccine DoD Influenza, injectable, quadrivalent, preservative free 1 2017 [id number] 150 SmithKline (SKB) complet ed Influenza , injectabl e, quadrival ent, preservat tristen free DoD INFLUENZA, UNSPECIFIED FORMULATION 2017 88 complet ed [facility] Influenza, injectable, quadrivalent, preservative free 1 2016 [id number] 150 [employer] (SKB) complet ed Influenza , injectabl e, quadrival ent, preservat tristen free DoD Influenza, seasonal, injectable, preservative free 1 2015 [id number] [employer] (SEQ) comple t ed Influenza , seasonal, injectabl e, preservat tristen free DoD varicella virus vaccine 1 2014 UNK 21 Unknown (UNK) Not Given varicella virus vaccine DoD measles, mumps and rubella virus vaccine 2 2014 [id number] 03 Merck (MSD) complet ed measles, mumps and rubella virus vaccine DoD Influenza, seasonal, injectable, preservative free 1 2014 [id number] 140 [employer] (CSL) complet ed Influenza , seasonal, injectabl e, preservat tristen free DoD hepatitis A vaccine, adult dosage 3 2013 [id number] 52 [facility] ([facility]) complet ed hepatitis A vaccine, adult dosage DoD Influenza, injectable, Madin [place] Canine Kidney, preservative free 1 2013 [id number] Novartis [employer]. (NOV) complet ed Influenza , injectabl e, Madin [place] Canine Kidney, preservat tristen free DoD Influenza, seasonal, injectable 1 2012 [id number] 141 Sanofi Pasteur ([facility]) complet ed Influenza , seasonal, injectabl e DoD Influenza, seasonal, injectable 1 2011 [id number] 141 [facility] ([facility]) complet ed Influenza , seasonal, injectabl e DoD influenza virus vaccine, unspecified formulation 1 2010 [id number] 88 [employer] ([facility]) complet ed influenza virus vaccine, unspecifi ed formulati on DoD tetanus toxoid, reduced diphtheria toxoid, and acellular pertu is vaccine, adsorbed 1 2010 [id number] 115 Sanofi Pasteur ([facility]) complet ed tetanus toxoid, reduced diphtheri a toxoid, and acellular pertussis vaccine, adsorbed DoD influenza virus vaccine, split virus (incl. purified surface antigen)-reti red CODE 1 2009 [id number] 15 [employer] ([facility]) complet ed influenza virus vaccine, split virus (incl. purified surface antigen)- retired CODE DoD Novel influenza-H1N 1-09, injectable 1 2009 [id number] 127 Novartis [employer]. (NOV) complet ed Novel influenza -[id number], injectabl e DoD influenza virus vaccine, split virus (incl. purified surface antigen)-reti red CODE 1 2007 [id number] 15 [facility] ([facility]) complet ed influenza virus vaccine, split virus (incl. purified surface antigen)- retired CODE DoD INFLUENZA, UNSPECIFIED FORMULATION 2005 88 complet ed [facility] hepatitis B vaccine, adult dosage 3 2004 UNK 43 Unknown (UNK) comple t ed hepatitis B vaccine, adult dosage DoD influenza virus vaccine, split virus (incl. purified surface antigen)-reti red CODE 1 2003 [id number] 15 [employer] (AVB) complet ed influenza virus vaccine, split virus (incl. purified surface antigen)- retired CODE DoD anthrax vaccine 4 2003 [id number] 24 [employer] [place] ([facility]) complet ed anthrax vaccine DoD anthrax vaccine 3 2003 [id number] 24 [employer] [place] ([facility]) complet ed anthrax vaccine DoD hepatitis B vaccine, adult dosage 2 2003 UNK 43 Unknown (UNK) comple t ed hepatitis B vaccine, adult dosage DoD anthrax vaccine 2 2003 [id number] 24 [employer] [place] ([facility]) complet ed anthrax vaccine DoD anthrax vaccine 1 2002 UNK 24 [employer] [place] ([facility]) complet ed anthrax vaccine DoD hepatitis B vaccine, adult dosage 1 2002 UNK 43 Unknown (UNK) comple t ed hepatitis B vaccine, adult dosage DoD vaccinia (smallpox) vaccine 1 2002 UNK 75 [employer] (WAL) complet ed vaccinia (smallpox ) vaccine DoD typhoid Vi capsular polysaccharid e vaccine 1 2002 UNK 101 Unknown (UNK) comple t ed typhoid Vi capsular polysacch aride vaccine DoD influenza virus vaccine, split virus (incl. purified surface antigen)-reti red CODE 1 2002 [id number] 15 Sanofi Pasteur ([facility]) complet ed influenza virus vaccine, split virus (incl. purified surface antigen)- retired CODE DoD influenza virus vaccine, split virus (incl. purified surface antigen)-reti red CODE 0 2001 UNK 15 Unknown (UNK) comple t ed influenza virus vaccine, split virus (incl. purified surface antigen)- retired CODE DoD influenza virus vaccine, split virus (incl. purified surface antigen)-reti red CODE 0 2001 [id number] 15 Sanofi Pasteur ([facility]) complet ed influenza virus vaccine, split virus (incl. purified surface antigen)- retired CODE DoD hepatitis A vaccine, adult dosage 2 2001 UNK 52 Unknown (UNK) comple t ed hepatitis A vaccine, adult dosage DoD typhoid Vi capsular polysaccharid e vaccine 0 2000 UNK 101 Unknown (UNK) comple t ed typhoid Vi capsular polysacch aride vaccine DoD tetanus and diphtheria toxoids, adsorbed, preservative free, for adult use (2 Lf of tetanus toxoid and 2 Lf of diphtheria toxoid) 0 2000 UNK 09 Unknown (UNK) comple t ed tetanus and diphtheri a toxoids, adsorbed, preservat tristen free, for adult use (2 Lf of tetanus toxoid and 2 Lf of diphtheri a toxoid) DoD influenza virus vaccine, split virus (incl. purified surface antigen)-reti red CODE 0 2000 UNK 15 Sanofi Pasteur (PMC) complet ed influenza virus vaccine, split virus (incl. purified surface antigen)- retired CODE DoD measles virus vaccine 0 2000 UNK 05 Unknown (UNK) comple t ed measles virus vaccine DoD rubella virus vaccine 0 2000 UNK 06 Unknown (UNK) comple t ed rubella virus vaccine DoD poliovirus vaccine, inactivated 0 2000 UNK 10 Unknown (UNK) comple t ed polioviru s vaccine, inactivat ed DoD meningococcal polysaccharid e vaccine (MPSV4) 0 2000 UNK 32 Unknown (UNK) comple t ed meningoco ccal polysacch aride vaccine (MPSV4) DoD hepatitis A vaccine, adult dosage 1 2000 UNK 52 Unknown (UNK) comple t ed hepatitis A vaccine, adult dosage DoD measles, mumps and rubella virus vaccine 0 2000 UNK 03 Unknown (UNK) comple t ed measles, mumps and rubella virus vaccine DoD Results Combined list of recent chemistry, hematology and other laboratory results from Department of Defense and Veterans Affairs, ranging from 15 months to all on record, depending upon the facility. Order Name Results Value Reference Range Date Interpretation Specimen Comments Source CBC LEUKOCYTES [#/VOLUME] IN BLOOD BY AUTOMATED COUNT 8.9 10*3/u L 3.6 - 11.2 12/20 Specimen Type: BLOOD No comment entered. Ordering Provider: RENETTA DENTON Report Released Date/Time: Sep 01, 2024 11:00 AM Reporting Lab: [facility] [address] [facility] [id number] Performing Lab: [facility] [address] [facility] [id number] [facility] CBC ERYTHROCYTE S [#/VOLUME] IN BLOOD BY AUTOMATED COUNT 5.73 10*6/u L 4.10 - 5.70 12/20 H Specimen Type: BLOOD No comment entered. Ordering Provider: RENETTA DENTON Report Released Date/Time: Sep 01, 2024 11:00 AM Reporting Lab: [address] [address] Performing Lab: [address] [address] [facility] CBC HEMOGLOBIN [MASS/VOLUM E] IN BLOOD 18.0 g/dL 13.1 - 16.8 12/20 H Specimen Type: BLOOD No comment entered. Ordering Provider: RENETTA DENTON Report Released Date/Time: Sep 01, 2024 11:00 AM Reporting Lab: [address] [address] Performing Lab: [address] [address] [facility] CBC HEMATOCRIT [VOLUME FRACTION] OF BLOOD 52.5 38.2 - 48.4 12/20 H Specimen Type: BLOOD No comment entered. Ordering Provider: RENETTA DENTON Report Released Date/Time: Sep 01, 2024 11:00 AM Reporting Lab: [address] [address] Performing Lab: [address] [address] [facility] CBC MCV [ENTITIC VOLUME] BY AUTOMATED COUNT 91.6 fL 80.0 - 100.0 12/20 Specimen Type: BLOOD No comment entered. Ordering Provider: RENETTA DENTON Report Released Date/Time: Sep 01, 2024 11:00 AM Reporting Lab: [address] [address] Performing Lab: [address] [place] [address] [facility] CBC MCH [ENTITIC MASS] BY AUTOMATED COUNT 31.4 pg 27.0 - 34.0 12/20 Specimen Type: BLOOD No comment entered. Ordering Provider: RENETTA DENTON Report Released Date/Time: Sep 01, 2024 11:00 AM Reporting Lab: [address] [address] Performing Lab: [address] [address] [facility] CBC MCHC [MASS/VOLUM E] BY AUTOMATED COUNT 34.3 g/dL 33.0 - 36.0 12/20 Specimen Type: BLOOD No comment entered. Ordering Provider: RENETTA DENTON Report Released Date/Time: Sep 01, 2024 11:00 AM Reporting Lab: [address] [address] Performing Lab: [address] [phone] [address] CBC PLATELETS [#/VOLUME] IN BLOOD BY AUTOMATED COUNT 247 10*3/u L 150 - 400 12/20 Specimen Type: BLOOD No comment entered. Ordering Provider: RENETTA DENTON Report Released Date/Time: Sep 01, 2024 11:00 AM Reporting Lab: [address] [address] Performing Lab: [address] [address] [facility] CBC PLATELET MEAN VOLUME [ENTITIC VOLUME] IN BLOOD BY AUTOMATED COUNT 11.5 fL 7.5 - 11.2 12/20 H Specimen Type: BLOOD No comment entered. Ordering Provider: RENETTA DENTON Report Released Date/Time: Sep 01, 2024 11:00 AM Reporting Lab: [address] [address] Performing Lab: [address] [place] [address] [facility] CBC ERYTHROCYTE DISTRIBUTIO N WIDTH [RATIO] BY AUTOMATED COUNT 13.1 11.8 - 15.1 12/20 Specimen Type: BLOOD No comment entered. Ordering Provider: RENETTA DENTON Report Released Date/Time: Sep 01, 2024 11:00 AM Reporting Lab: [facility] [address] [facility] [address] Performing Lab: [facility] [address] [facility] [address] [facility] CBC LYMPHOCYTES /100 LEUKOCYTES IN BLOOD BY AUTOMATED COUNT 29 12/20 Specimen Type: BLOOD No comment entered. Ordering Provider: RENETTA DENTON Report Released Date/Time: Sep 01, 2024 11:00 AM Reporting Lab: [facility] [address] [facility] [address] Performing Lab: [facility] [address] [facility] [address] [facility] CBC MONOCYTES/1 00 LEUKOCYTES IN BLOOD BY AUTOMATED COUNT 10 12/20 Specimen Type: BLOOD No comment entered. Ordering Provider: RENETTA DENTON Report Released Date/Time: Sep 01, 2024 11:00 AM Reporting Lab: [facility] [address] [facility] [address] Performing Lab: [facility] [address] [facility] [address] [facility] CBC NEUTROPHILS /100 LEUKOCYTES IN BLOOD BY AUTOMATED COUNT 56 12/20 Specimen Type: BLOOD No comment entered. Ordering Provider: RENETTA DENTON Report Released Date/Time: Sep 01, 2024 11:00 AM Reporting Lab: [facility] [address] [facility] [address] Performing Lab: [facility] [address] [facility] [address] [facility] CBC EOSINOPHILS /100 LEUKOCYTES IN BLOOD BY AUTOMATED COUNT 4 12/20 Specimen Type: BLOOD No comment entered. Ordering Provider: RENETAT DENTON Report Released Date/Time: Sep 01, 2024 11:00 AM Reporting Lab: [address] [address] Performing Lab: [facility] [address] [place] [address] [facility] CBC BASOPHILS/1 00 LEUKOCYTES IN BLOOD BY AUTOMATED COUNT 1 12/20 Specimen Type: BLOOD No comment entered. Ordering Provider: RENETTA DENTON Report Released Date/Time: Sep 01, 2024 11:00 AM Reporting Lab: [place] [address] Performing Lab: [address] [phone] [place] [address] CBC LYMPHOCYTES [#/VOLUME] IN BLOOD BY AUTOMATED COUNT 2.54 10*3/u L 0.77 - 4.50 12/20 Specimen Type: BLOOD No comment entered. Ordering Provider: RENETTA DENTON Report Released Date/Time: Sep 01, 2024 11:00 AM Reporting Lab: [place] [phone] Performing Lab: [address] [address] [facility] CBC MONOCYTES [#/VOLUME] IN BLOOD BY AUTOMATED COUNT 0.92 10*3/u L 0.19 - 0.80 12/20 H Specimen Type: BLOOD No comment entered. Ordering Provider: RENETTA DENTON Report Released Date/Time: Sep 01, 2024 11:00 AM Reporting Lab: [address] [address] Performing Lab: [address] [address] [facility] CBC NEUTROPHILS [#/VOLUME] IN BLOOD BY AUTOMATED COUNT 4.98 10*3/u L 2.10 - 8.00 12/20 Specimen Type: BLOOD No comment entered. Ordering Provider: RENETTA DENTON Report Released Date/Time: Sep 01, 2024 11:00 AM Reporting Lab: [place] [phone] Performing Lab: [address] [phone] [address] CBC EOSINOPHILS [#/VOLUME] IN BLOOD BY AUTOMATED COUNT 0.34 10*3/u L 0.00 - 0.60 12/20 Specimen Type: BLOOD No comment entered. Ordering Provider: RENETTA DENTON Report Released Date/Time: Sep 01, 2024 11:00 AM Reporting Lab: [place] [address] Performing Lab: [place] [phone] CBC BASOPHILS [#/VOLUME] IN BLOOD BY AUTOMATED COUNT 0.07 10*3/u L 0.00 - 0.20 12/20 Specimen Type: BLOOD No comment entered. Ordering Provider: RENETTA DENTON Report Released Date/Time: Sep 01, 2024 11:00 AM Reporting Lab: [place] [phone] Performing Lab: [place] [phone] FERRITIN FERRITIN [MASS/VOLUM E] IN SERUM OR PLASMA 23.58 ng/mL 22 - 275 12/20 Specimen Type: SERUM No comment entered. Ordering Provider: RENETTA DENTON Report Released Date/Time: Sep 01, 2024 11:00 AM Reporting Lab: [place] [address] Performing Lab: [address] [phone] [place] [address] CBC LEUKOCYTES [#/VOLUME] IN BLOOD BY AUTOMATED COUNT 8.1 10*3/u L 3.6 - 11.2 08/30 Specimen Type: BLOOD No comment entered. Ordering Provider: RENETTA DENTON Report Released Date/Time: Aug 17, 2024 09:49 AM Reporting Lab: [address] [address] Performing Lab: [address] [address] [facility] CBC ERYTHROCYTE S [#/VOLUME] IN BLOOD BY AUTOMATED COUNT 5.72 10*6/u L 4.10 - 5.70 08/30 H Specimen Type: BLOOD No comment entered. Ordering Provider: RENETTA DENTON Report Released Date/Time: Aug 17, 2024 09:49 AM Reporting Lab: [address] [address] Performing Lab: [address] [phone] [place] [address] CBC HEMOGLOBIN [MASS/VOLUM E] IN BLOOD 18.2 g/dL 13.1 - 16.8 08/30 H Specimen Type: BLOOD No comment entered. Ordering Provider: RENETTA DENTON Report Released Date/Time: Aug 17, 2024 09:49 AM Reporting Lab: [address] [address] Performing Lab: [address] [phone] [place] [address] CBC HEMATOCRIT [VOLUME FRACTION] OF BLOOD 53.6 38.2 - 48.4 08/30 H Specimen Type: BLOOD No comment entered. Ordering Provider: RENETTA DENTON Report Released Date/Time: Aug 17, 2024 09:49 AM Reporting Lab: [address] [address] Performing Lab: [address] [address] [facility] CBC MCV [ENTITIC VOLUME] BY AUTOMATED COUNT 93.7 fL 80.0 - 100.0 08/30 Specimen Type: BLOOD No comment entered. Ordering Provider: RENETTA DENTON Report Released Date/Time: Aug 17, 2024 09:49 AM Reporting Lab: [address] [address] Performing Lab: [address] [address] [facility] CBC MCH [ENTITIC MASS] BY AUTOMATED COUNT 31.8 pg 27.0 - 34.0 08/30 Specimen Type: BLOOD No comment entered. Ordering Provider: RENETTA DENTON Report Released Date/Time: Aug 17, 2024 09:49 AM Reporting Lab: [address] [address] Performing Lab: [phone] [place] [address] CBC MCHC [MASS/VOLUM E] BY AUTOMATED COUNT 34.0 g/dL 33.0 - 36.0 08/30 Specimen Type: BLOOD No comment entered. Ordering Provider: RENETTA DENTON Report Released Date/Time: Aug 17, 2024 09:49 AM Reporting Lab: [address] [address] Performing Lab: [address] [address] [facility] CBC PLATELETS [#/VOLUME] IN BLOOD BY AUTOMATED COUNT 213 10*3/u L 150 - 400 08/30 Specimen Type: BLOOD No comment entered. Ordering Provider: RENETTA DENTON Report Released Date/Time: Aug 17, 2024 09:49 AM Reporting Lab: [address] [address] Performing Lab: [address] [address] [facility] CBC PLATELET MEAN VOLUME [ENTITIC VOLUME] IN BLOOD BY AUTOMATED COUNT 11.3 fL 7.5 - 11.2 08/30 H Specimen Type: BLOOD No comment entered. Ordering Provider: RENETTA DENTON Report Released Date/Time: Aug 17, 2024 09:49 AM Reporting Lab: [facility] [address] [facility] [address] Performing Lab: [facility] [address] [facility] [address] [facility] CBC ERYTHROCYTE DISTRIBUTIO N WIDTH [RATIO] BY AUTOMATED COUNT 12.7 11.8 - 15.1 08/30 Specimen Type: BLOOD No comment entered. Ordering Provider: RENETTA DENTON Report Released Date/Time: Aug 17, 2024 09:49 AM Reporting Lab: [facility] [address] [facility] [address] Performing Lab: [facility] [address] [facility] [address] [facility] CBC LYMPHOCYTES /100 LEUKOCYTES IN BLOOD BY AUTOMATED COUNT 29 08/30 Specimen Type: BLOOD No comment entered. Ordering Provider: RENETTA DENTON Report Released Date/Time: Aug 17, 2024 09:49 AM Reporting Lab: [facility] [address] [facility] [address] Performing Lab: [facility] [address] [facility] [address] [facility] CBC MONOCYTES/1 00 LEUKOCYTES IN BLOOD BY AUTOMATED COUNT 8 08/30 Specimen Type: BLOOD No comment entered. Ordering Provider: RENETTA DENTON Report Released Date/Time: Aug 17, 2024 09:49 AM Reporting Lab: [facility] [address] [place] [address] Performing Lab: [facility] [address] [facility] [address] [facility] CBC NEUTROPHILS /100 LEUKOCYTES IN BLOOD BY AUTOMATED COUNT 58 08/30 Specimen Type: BLOOD No comment entered. Ordering Provider: RENETTA DENTON Report Released Date/Time: Aug 17, 2024 09:49 AM Reporting Lab: [facility] [address] [facility] [address] Performing Lab: [facility] [address] [facility] [address] [facility] CBC EOSINOPHILS /100 LEUKOCYTES IN BLOOD BY AUTOMATED COUNT 4 08/30 Specimen Type: BLOOD No comment entered. Ordering Provider: RENETTA DENTON Report Released Date/Time: Aug 17, 2024 09:49 AM Reporting Lab: [place] [address] [place] [phone] Performing Lab: [place] [address] [place] [phone] [facility] CBC BASOPHILS/1 00 LEUKOCYTES IN BLOOD BY AUTOMATED COUNT 1 08/30 Specimen Type: BLOOD No comment entered. Ordering Provider: RENETTA DENTON Report Released Date/Time: Aug 17, 2024 09:49 AM Reporting Lab: [facility] [place] [phone] Performing Lab: [place] [address] [place] [phone] [facility] CBC LYMPHOCYTES [#/VOLUME] IN BLOOD BY AUTOMATED COUNT 2.30 10*3/u L 0.77 - 4.50 08/30 Specimen Type: BLOOD No comment entered. Ordering Provider: RENETTA DENTON Report Released Date/Time: Aug 17, 2024 09:49 AM Reporting Lab: [facility] [address] Performing Lab: [facility] [place] [phone] [facility] CBC MONOCYTES [#/VOLUME] IN BLOOD BY AUTOMATED COUNT 0.68 10*3/u L 0.19 - 0.80 08/30 Specimen Type: BLOOD No comment entered. Ordering Provider: RENETTA DENTON Report Released Date/Time: Aug 17, 2024 09:49 AM Reporting Lab: [place] [phone] Performing Lab: [place] [phone] CBC NEUTROPHILS [#/VOLUME] IN BLOOD BY AUTOMATED COUNT 4.69 10*3/u L 2.10 - 8.00 08/30 Specimen Type: BLOOD No comment entered. Ordering Provider: RENETTA DENTON Report Released Date/Time: Aug 17, 2024 09:49 AM Reporting Lab: [place] [address] Performing Lab: [address] CBC EOSINOPHILS [#/VOLUME] IN BLOOD BY AUTOMATED COUNT 0.31 10*3/u L 0.00 - 0.60 08/30 Specimen Type: BLOOD No comment entered. Ordering Provider: RENETTA DENTON Report Released Date/Time: Aug 17, 2024 09:49 AM Reporting Lab: [place] [address] Performing Lab: [place] [phone] CBC BASOPHILS [#/VOLUME] IN BLOOD BY AUTOMATED COUNT 0.06 10*3/u L 0.00 - 0.20 08/30 Specimen Type: BLOOD No comment entered. Ordering Provider: RENETTA DENTON Report Released Date/Time: Aug 17, 2024 09:49 AM Reporting Lab: [place] [address] Performing Lab: [place] [phone] FERRITIN FERRITIN [MASS/VOLUM E] IN SERUM OR PLASMA 34.45 ng/mL 22 - 275 08/30 Specimen Type: SERUM No comment entered. Ordering Provider: RENETTA DENTON Report Released Date/Time: Aug 17, 2024 09:49 AM Reporting Lab: [facility] [address] [place] [phone] Performing Lab: [address] [address] [facility] COMPREHEN SIVE METABOLIC PANEL CREATININE [MASS/VOLUM E] IN SERUM OR PLASMA 1.22 mg/dL 0.7 - 1.3 08/30 Specimen Type: PLASMA Comment: LDL calculation invalid when Triglycerid e exceeds 250 mg/dl Ordering Provider: AZEEM PRESCOTT Report Released Date/Time: Aug 25, 2024 09:06 AM Reporting Lab: [address] [address] Performing Lab: [address] [phone] [place] [address] COMPREHEN SIVE METABOLIC PANEL UREA NITROGEN [MASS/VOLUM E] IN SERUM OR PLASMA 12.2 mg/dL 9.0 - 25.0 08/30 Specimen Type: PLASMA Comment: LDL calculation invalid when Triglycerid e exceeds 250 mg/dl Ordering Provider: AZEEM PRESCOTT Report Released Date/Time: Aug 25, 2024 09:06 AM Reporting Lab: [address] [address] Performing Lab: [address] [address] [facility] COMPREHEN SIVE METABOLIC PANEL GLUCOSE [MASS/VOLUM E] IN SERUM OR PLASMA 98 mg/dL 72 - 99 08/30 Specimen Type: PLASMA Comment: LDL calculation invalid when Triglycerid e exceeds 250 mg/dl Ordering Provider: AZEEM PRESCOTT Report Released Date/Time: Aug 25, 2024 09:06 AM Reporting Lab: [address] [address] Performing Lab: [address] [address] [facility] COMPREHEN SIVE METABOLIC PANEL SODIUM [MOLES/VOLU ME] IN SERUM OR PLASMA 139 meq/L 136 - 145 08/30 Specimen Type: PLASMA Comment: LDL calculation invalid when Triglycerid e exceeds 250 mg/dl Ordering Provider: AZEEM PRESCOTT Report Released Date/Time: Aug 25, 2024 09:06 AM Reporting Lab: [address] [address] Performing Lab: [address] [phone] COMPREHEN SIVE METABOLIC PANEL POTASSIUM [MOLES/VOLU ME] IN SERUM OR PLASMA 4.0 meq/L 3.5 - 5 08/30 Specimen Type: PLASMA Comment: LDL calculation invalid when Triglycerid e exceeds 250 mg/dl Ordering Provider: AZEEM PRESCOTT Report Released Date/Time: Aug 25, 2024 09:06 AM Reporting Lab: [facility] [address] Performing Lab: [place] [address] [facility] [address] [facility] COMPREHEN SIVE METABOLIC PANEL CHLORIDE [MOLES/VOLU ME] IN SERUM OR PLASMA 104 meq/L 98 - 107 08/30 Specimen Type: PLASMA Comment: LDL calculation invalid when Triglycerid e exceeds 250 mg/dl Ordering Provider: AZEEM PRESCOTT Report Released Date/Time: Aug 25, 2024 09:06 AM Reporting Lab: [facility] [address] [facility] [address] Performing Lab: [facility] [address] [place] [phone] [facility] COMPREHEN SIVE METABOLIC PANEL CARBON DIOXIDE, TOTAL [MOLES/VOLU ME] IN SERUM OR PLASMA 26 meq/L 22 - 31 08/30 Specimen Type: PLASMA Comment: LDL calculation invalid when Triglycerid e exceeds 250 mg/dl Ordering Provider: AZEEM PRESCOTT Report Released Date/Time: Aug 25, 2024 09:06 AM Reporting Lab: [facility] [address] [facility] [address] Performing Lab: [place] [address] [facility] [phone] [place] [address] COMPREHEN SIVE METABOLIC PANEL CALCIUM [MASS/VOLUM E] IN SERUM OR PLASMA 9.9 mg/dL 8.4 - 10.4 08/30 Specimen Type: PLASMA Comment: LDL calculation invalid when Triglycerid e exceeds 250 mg/dl Ordering Provider: AZEEM PRESCOTT Report Released Date/Time: Aug 25, 2024 09:06 AM Reporting Lab: [address] [address] Performing Lab: [place] [address] [facility] [phone] [place] [address] COMPREHEN SIVE METABOLIC PANEL PROTEIN [MASS/VOLUM E] IN SERUM OR PLASMA 8.2 g/dL 6 - 8.6 08/30 Specimen Type: PLASMA Comment: LDL calculation invalid when Triglycerid e exceeds 250 mg/dl Ordering Provider: AZEEM PRESCOTT Report Released Date/Time: Aug 25, 2024 09:06 AM Reporting Lab: [address] [phone] Performing Lab: [place] [address] [facility] [phone] [place] [address] COMPREHEN SIVE METABOLIC PANEL ALBUMIN [MASS/VOLUM E] IN SERUM OR PLASMA 4.9 g/dL 3.4 - 5 08/30 Specimen Type: PLASMA Comment: LDL calculation invalid when Triglycerid e exceeds 250 mg/dl Ordering Provider: AZEEM PRESCOTT Report Released Date/Time: Aug 25, 2024 09:06 AM Reporting Lab: [facility] [address] [place] [phone] Performing Lab: [place] [address] [facility] [address] [facility] COMPREHEN SIVE METABOLIC PANEL BILIRUBIN.T OTAL [MASS/VOLUM E] IN SERUM OR PLASMA 0.5 mg/dL 0.2 - 1.2 08/30 Specimen Type: PLASMA Comment: LDL calculation invalid when Triglycerid e exceeds 250 mg/dl Ordering Provider: AZEEM PRESCOTT Report Released Date/Time: Aug 25, 2024 09:06 AM Reporting Lab: [place] [phone] Performing Lab: [address] COMPREHEN SIVE METABOLIC PANEL ALKALINE PHOSPHATASE [ENZYMATIC ACTIVITY/VO LUME] IN SERUM OR PLASMA 91 U/L 40 - 150 08/30 Specimen Type: PLASMA Comment: LDL calculation invalid when Triglycerid e exceeds 250 mg/dl Ordering Provider: AZEEM PRESCOTT Report Released Date/Time: Aug 25, 2024 09:06 AM Reporting Lab: [place] [phone] Performing Lab: [place] [phone] COMPREHEN SIVE METABOLIC PANEL ASPARTATE AMINOTRANSF ERASE [ENZYMATIC ACTIVITY/VO LUME] IN SERUM OR PLASMA 33 U/L 5 - 34 08/30 Specimen Type: PLASMA Comment: LDL calculation invalid when Triglycerid e exceeds 250 mg/dl Ordering Provider: AZEEM PRESCOTT Report Released Date/Time: Aug 25, 2024 09:06 AM Reporting Lab: [place] [phone] Performing Lab: [place] [phone] COMPREHEN SIVE METABOLIC PANEL ALANINE AMINOTRANSF ERASE [ENZYMATIC ACTIVITY/VO LUME] IN SERUM OR PLASMA 66 U/L 8 - 40 08/30 H Specimen Type: PLASMA Comment: LDL calculation invalid when Triglycerid e exceeds 250 mg/dl Ordering Provider: AZEEM PRESCOTT Report Released Date/Time: Aug 25, 2024 09:06 AM Reporting Lab: [address] [place] [address] Performing Lab: [facility] [address] [facility] [address] [facility] COMPREHEN SIVE METABOLIC PANEL GLOMERULAR FILTRATION RATE/1.73 SQ M.PREDICTED [VOLUME RATE/AREA] IN SERUM, PLASMA OR BLOOD BY CREATININE- BASED FORMULA (CKD-EPI 2020) 75.9 60 08/30 Specimen Type: PLASMA Comment: LDL calculation invalid when Triglycerid e exceeds 250 mg/dl Ordering Provider: AZEEM PRESCOTT Report Released Date/Time: Aug 25, 2024 09:06 AM Reporting Lab: [facility] [address] [place] [phone] Performing Lab: [address] [phone] [place] [address] HGA1C HEMOGLOBIN A1C/HEMOGLO BIN.TOTAL IN BLOOD 5.3 4.0 - 6.0 08/30 Specimen Type: BLOOD No comment entered. Ordering Provider: AZEEM PRESCOTT Report Released Date/Time: Aug 25, 2024 09:06 AM Reporting Lab: [facility] [address] [place] [phone] Performing Lab: [facility] [address] [place] [phone] [facility] LIPID PANEL (STL) CHOLESTEROL [MASS/VOLUM E] IN SERUM OR PLASMA 175 mg/dL 0 - 200 08/30 Specimen Type: PLASMA Comment: LDL calculation invalid when Triglycerid e exceeds 250 mg/dl Ordering Provider: AZEEM PRESCOTT Report Released Date/Time: Aug 25, 2024 09:06 AM Reporting Lab: [facility] [address] [place] [phone] Performing Lab: [facility] [address] [place] [phone] [facility] LIPID PANEL (STL) TRIGLYCERID E [MASS/VOLUM E] IN SERUM OR PLASMA 366 mg/dL 0 - 150 08/30 H Specimen Type: PLASMA Comment: LDL calculation invalid when Triglycerid e exceeds 250 mg/dl Ordering Provider: AZEEM PRESCOTT Report Released Date/Time: Aug 25, 2024 09:06 AM Reporting Lab: [facility] [address] [place] [phone] Performing Lab: [facility] [address] [place] [phone] [facility] LIPID PANEL (STL) CHOLESTEROL IN LDL [MASS/VOLUM E] IN SERUM OR PLASMA BY DIRECT ASSAY 78 mg/dL 100 08/30 L Specimen Type: PLASMA Comment: LDL calculation invalid when Triglycerid e exceeds 250 mg/dl Ordering Provider: AZEEM PRESCOTT Report Released Date/Time: Aug 25, 2024 09:06 AM Reporting Lab: [address] [phone] Performing Lab: [address] [address] [facility] LIPID PANEL (STL) CHOLESTEROL IN LDL [MASS/VOLUM E] IN SERUM OR PLASMA BY CALCULATION commen tmg/dL 08/30 Specimen Type: PLASMA Comment: LDL calculation invalid when Triglycerid e exceeds 250 mg/dl Ordering Provider: AZEEM PRESCOTT Report Released Date/Time: Aug 25, 2024 09:06 AM Reporting Lab: [address] [phone] Performing Lab: [address] [address] [facility] LIPID PANEL (STL) CHOLESTEROL IN HDL [MASS/VOLUM E] IN SERUM OR PLASMA 64 mg/dL 40 08/30 Specimen Type: PLASMA Comment: LDL calculation invalid when Triglycerid e exceeds 250 mg/dl Ordering Provider: AZEEM PRESCOTT Report Released Date/Time: Aug 25, 2024 09:06 AM Reporting Lab: [address] [phone] Performing Lab: [address] [phone] . [facility] PROST. SPECIFIC AG.(PB-ST L) PROSTATE SPECIFIC AG [MASS/VOLUM E] IN SERUM OR PLASMA 0.894 ng/mL 0 - 4 08/30 Specimen Type: SERUM Comment: The listed sex of this patient may not be a typical indication for this test. Therefore, reference ranges or interpretiv e criteria listed may not be valid. Clinical correlation suggested. Ordering Provider: AZEEM PRESCOTT Report Released Date/Time: Aug 25, 2024 09:06 AM Reporting Lab: [facility] [address] [address] Performing Lab: [address] VITAMIN D, 25-HYDROX Y 25-HYDROXYV ITAMIN D3 [MASS/VOLUM E] IN SERUM OR PLASMA 59.9 ng/mL 30 - 96 08/30 Specimen Type: SERUM Comment: The listed sex of this patient may not be a typical indication for this test. Therefore, reference ranges or interpretiv e criteria listed may not be valid. Clinical correlation suggested. Ordering Provider: AZEEM PRESCOTT Report Released Date/Time: Aug 25, 2024 09:06 AM Reporting Lab: [facility] [address] [place] [address] Performing Lab: [address] CELIAC DISEASE PANEL (STL-MRN) IGA [MASS/VOLUM E] IN SERUM OR PLASMA 324 mg/dL 47 - 310 05/12 H Specimen Type: SERUM Comment: No serological evidence of celiac disease. Total serum IgA is elevated. Consider mucosal inflammator y conditions or underlying gammopathy. REFERENCE RANGE: <15.0 U/mL Value Interpretat ion <15.0 Antibody not detected > or = 15.0 Antibody detected Test Performed by [facility], [facility], [address] [place] [address] Peña Bauer M.D., Ph.D., Director of Laboratorie s , CLIA [id number] Ordering Provider: SHAWN GONZALEZ EPH A Report Released Date/Time: May 08, 2024 11:49 AM Reporting Lab: [address] [id number] Performing Lab: [address] [facility] CELIAC DISEASE PANEL (STL-MRN) TISSUE TRANSGLUTAM INASE IGA AB [UNITS/VOLU ME] IN SERUM <1.0 05/12 Specimen Type: SERUM Comment: No serological evidence of celiac disease. Total serum IgA is elevated. Consider mucosal inflammator y conditions or underlying gammopathy. REFERENCE RANGE: <15.0 U/mL Value Interpretat ion <15.0 Antibody not detected > or = 15.0 Antibody detected Test Performed by [facility], [facility], [address] [place] [address] Peña Bauer M.D., Ph.D., Director of Laboratorie s , CLIA [id number] Ordering Provider: SHAWN GONZALEZ A Report Released Date/Time: May 08, 2024 11:49 AM Reporting Lab: [address] [id number] Performing Lab: [address] [facility] Vital Signs Combined list of inpatient and outpatient Vital Signs from Department of Defense and Veterans Affairs, ranging from 12 months to all on record, depending upon the facility. Vital Sign Value Date Comments Source SYSTOLIC BLOOD PRESSURE 137 12/20/2024 13:37:53 [facility] DIASTOLIC BLOOD PRESSURE 99 12/20/2024 13:37:53 [facility] PULSE OXIMETRY 98 % 12/20/2024 13:37:53 [facility] WEIGHT 223.8 12/20/2024 13:37:53 [facility] BMI 31 kg/m2 12/20/2024 13:37:53 [facility] TEMPERATURE 97.7 12/20/2024 13:37:53 [facility] PULSE 112 12/20/2024 13:37:53 [facility] Pat GOMES [facility] RESPIRATION 18 12/20/2024 13:37:53 [facility] SYSTOLIC BLOOD PRESSURE 129 11/01/2024 07:40:02 [facility] DIASTOLIC BLOOD PRESSURE 88 11/01/2024 07:40:02 [facility] PULSE OXIMETRY 97 11/01/2024 07:40:02 [place] [facility] WEIGHT 221.8 11/01/2024 07:40:02 [facility] BMI 31 kg/m2 11/01/2024 07:40:02 [facility] PAIN 0 11/01/2024 07:40:02 [facility] TEMPERATURE 97.5 11/01/2024 07:40:02 [facility] PULSE 84 11/01/2024 07:40:02 [facility] RESPIRATION 16 11/01/2024 07:40:02 [facility] SYSTOLIC BLOOD PRESSURE 151 08/30/2024 12:51:03 [facility] DIASTOLIC BLOOD PRESSURE 80 08/30/2024 12:51:03 [facility] PULSE OXIMETRY 96 08/30/2024 12:51:03 [place] [facility] WEIGHT 215.8 08/30/2024 12:51:03 [facility] BMI 30 kg/m2 08/30/2024 12:51:03 [facility] PAIN 0 08/30/2024 12:51:03 [facility] TEMPERATURE 98.8 08/30/2024 12:51:03 [facility] PULSE 76 08/30/2024 12:51:03 [facility] RESPIRATION 16 08/30/2024 12:51:03 [facility] SYSTOLIC BLOOD PRESSURE 119 08/25/2024 08:27:43 [facility] DIASTOLIC BLOOD PRESSURE 81 08/25/2024 08:27:43 [facility] PULSE OXIMETRY 97 08/25/2024 08:27:43 [place] [facility] WEIGHT 217 08/25/2024 08:27:43 [facility] BMI 30 kg/m2 08/25/2024 08:27:43 [facility] PAIN 4 08/25/2024 08:27:43 [facility] HEIGHT 71 08/25/2024 08:27:43 [facility] TEMPERATURE 98.9 08/25/2024 08:27:43 [facility] PULSE 85 08/25/2024 08:27:43 [facility] RESPIRATION 18 08/25/2024 08:27:43 [facility] SYSTOLIC BLOOD PRESSURE 124 06/21/2024 08:07:19 [facility] DIASTOLIC BLOOD PRESSURE 85 06/21/2024 08:07:19 [facility] PULSE OXIMETRY 97 06/21/2024 08:07:19 [place] [facility] WEIGHT 211.3 06/21/2024 08:07:19 [facility] Pat [facility] BMI 30 kg/m2 06/21/2024 08:07:19 [facility] Pat [facility] PAIN 0 06/21/2024 08:07:19 [facility] Pta [facility] TEMPERATURE 97.1 06/21/2024 08:07:19 [facility] PULSE 87 06/21/2024 08:07:19 [facility] Pat [facility] RESPIRATION 18 06/21/2024 08:07:19 [facility] Encounters Combined list of: 1) Encounters from Department of Veterans Affairs facilities going backup to the last 18 months, not all VA inpatient encounters are included; 2) Encounters from the Department of Defense facilities going backup to 280 months. Location Location Details Encounter Type Encounter Number Reason For Visit Attending Provider ADM Date DC Date Status Disposition Source [facility] ANDREA Acosta(IEP Hearing Conservat ion Exam) OUTPATIENT [id number] audiogr am for Commiss ioning duncan cerna [place] TESSA J. 07/08 Released w/o Limitations ANDREA Becerril(IEP Hearing Conserv ation Exam) [facility] ANDREA Acosta(Optome try) OUTPATIENT [id number] physica l LIANA STINOSN 07/08 Released w/o Limitations ANDREA Becerril(Opto metry) ANDREA Becerril(Physic al Exam) OUTPATIENT [id number] COMMISS ION PHASE 1 and 2 OUT OF TOWN, BRING ORDERS RAMSESLINDSEY GILMORE REBEKAH SISSY 07/08 Released with Work/Duty Limitations [facility] ANDREA Acosta(Phys ical Exam) [facility] ANDREA Acosta(Physic al Exam) OUTPATIENT [id number] UPDATE TO COMMISI ON PHYSICA L. PATIENT WILL BRING ALL PW OUT OF TOWN RAMSESGustavoLEANA GILMORE REBEKAH SISSY 07/27 Released w/o Limitations [facility] ANDREA Acosta(Phys ical Exam) CASTILLO Han(Medica l Examinati on) OUTPATIENT [id number] part 1 commiss ioning EMORY Cornejo 06/08 Released w/o Limitations CASTILLO Han(Medi kareem Examina tion) CASTILLO Han(SRP-He aring Conservat ion) OUTPATIENT [id number] Notes Entered by: JOSÉ MIGUEL GONZALEZ 08 Jun 2012 1038 ------- ------- ------- ------- -- Hearing test MEE GONZALEZ 06/08 Released w/o Limitations [facility] Han(SRP- Hearing Conserv ation) CASTILLO Han(Medica l Examinati on) OUTPATIENT [id number] part 2 commiss ionyissel BLANCOJASE Brice 06/08 Released w/o Limitations [facility] [place](Medi kareem Examina tion) [facility] Outpatient Encounter [id number] 08/12 [facility] HC PRO PHONE CALL 5-10 MIN [id number] [id number] 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 JUAN CARLOS CASIANO 09/01 [facility] OFFICE O/P EST HI 40 MIN [id number] [id number] 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 YESENIA DENTON LSAMMA 09/06 [facility] PHLEBOTOMY [id number] [id number] 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 FALLON PALMER 09/06 [facility] Outpatient Encounter [id number] 09/07 [facility] Outpatient Encounter [id number] Diagnos is: ICD-10- CM F43.12 Post-tr aumatic stress disorde r, chronic KIP,KLA RA I 09/14 [facility] Outpatient Encounter [id number] MET DANIELA ROJELIO 10/23 [facility] Outpatient Encounter [id number] [id number] 11/15 [facility] N [facility] HC PRO PHONE CALL 21-30 MIN [id number] [id number] Diagnos is: ICD-10- CM F43.12 Post-tr aumatic stress disorde r, chronic MAYDEN,CHR ISTINE M 11/16 [facility] Outpatient Encounter [id number] [id number] Diagnos is: ICD-10- CM G47.33 Obstruc tive sleep apnea (adult) (pediat sophie) DASIA TOMAS IDIMMA N 11/21 [facility] Outpatient Encounter [id number] [id number] 11/21 [facility] Outpatient Encounter [id number] [id number] 11/29 [facility] OFF/OP CONSLTJ NEW/EST SF 20 [id number] [id number] Diagnos is: ICD-10- CM G56.02 Carpal tunnel syndrom e, left upper limb PASCUAL,AP RIL L 12/01 [facility] Outpatient Encounter [id number] Diagnos is: ICD-10- CM F43.12 Post-tr aumatic stress disorde r, chronic KIP,KLA RA I 12/06 [facility] OFFICE O/P EST HI 40 MIN [id number] [id number] Diagnos is: ICD-10- CM 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 CORRIE,YESENIA LSAMMA 12/06 [facility] OFF/OP CNSLTJ NEW/EST MOD 40 [id number] [id number] 3 Diagnos is: ICD-10- CM K21.9 Gastro- esophag eal reflux disease without esophag itis CARMELO GOVEA 12/06 [facility] Outpatient Encounter [id number] [id number] SHELLI DAVIES L 12/06 [facility] Outpatient Encounter [id number] [id number] 12/07 [facility] Outpatient Encounter [id number] [id number] 12/20 [facility] Outpatient Encounter [id number] [id number] 12/20 [facility] NRV CNDJ TEST 13/ STUDIES [id number] [id number] 3 Diagnos is: ICD-10- CM G56.22 Lesion of ulnar nerve, left upper limb YELENA GIBBONS 12/20 [facility] Outpatient Encounter [id number] [id number] 12/22 [facility] EMERGENCY DEPT VISIT MOD MDM [id number] [id number] Diagnos is: ICD-10- CM R10.10 Upper abdomin al pain, unspeci NORMA Sethi 12/22 [facility] Outpatient Encounter [id number] [id number] 12/22 [facility] Outpatient Encounter [id number] [id number] VU,NORMA D 12/22 [facility] THERAPEUTI C EXERCISES [id number] [id number] 4 Diagnos is: ICD-10- CM R53.1 Roxana LEGERTIFFANY PYLE AN T 12/23 [facility] OFFICE O/P EST MOD 30 MIN [id number] [id number] 6 Diagnos is: ICD-10- CM K21.9 Gastro- esophag eal reflux disease without esophag itis CARMELO GOVEA S 12/28 [facility] Outpatient Encounter [id number] [id number] 12/29 [facility] Outpatient Encounter [id number] [id number] 12/29 [facility] OFFICE O/P EST SF 10 MIN [id number] [id number] Diagnos is: ICD-10- CM Z01.818 Encount er for other preproc edural examKATERINA Duncan 12/30 [facility] Outpatient Encounter [id number] [id number] 12/30 [facility] EGD DIAGNOSTIC BRUSH WASH [id number] [id number] 4 Diagnos is: ICD-10- CM R12 Heartbu RJ Garcia S 12/30 [facility] Outpatient Encounter [id number] [id number] Alena MEDINA S 12/30 [facility] OFFICE O/P EST MOD 30 MIN [id number] [id number] Diagnos is: ICD-10- CM G56.01 Carpal tunnel syndrom e, right upper limb CARAGIPat CURTIS OUIS P 01/02 [facility] Outpatient Encounter [id number] [id number] 01/11 [facility] Outpatient Encounter [id number] [id number] 01/16 [facility] Outpatient Encounter [id number] [id number] Diagnos is: ICD-10- CM F43.12 Post-tr aumatic stress disorde r, chronic KIP,KLA RA I 01/24 [facility] THERAPEUTI C EXERCISES [id number] [id number] Diagnos is: ICD-10- CM R53.[address] AN T 01/25 [facility] Outpatient Encounter [id number] [id number] 02/01 [facility] Outpatient Encounter [id number] [id number] 02/20 [facility] Outpatient Encounter [id number] [id number] Diagnos is: ICD-10- CM E83.110 Jannyit YESENIA Doyle LSAMMA 02/22 [facility] Outpatient Encounter [id number] [id number] 03/07 [facility] THERAPEUTI C EXERCISES [id number] [id number] Diagnos is: ICD-10- CM R53.1 Roxana TIFFANY Navarro T 03/15 [facility] OFFICE O/P EST MOD 30 MIN [id number] [id number] Diagnos is: ICD-10- CM R10.13 Epigast sophie pain CARMELO GOVEA S 03/15 [facility] QNHP OL DIG ASSMT&MGMT 5-10 [id number] [id number] 6 Diagnos is: ICD-10- CM K21.9 Gastro- esophag eal reflux disease without esophag itis CHEN RAMOS 03/16 [facility] Outpatient Encounter [id number] [id number] AZEEM PRESCOTT 03/18 [facility] Outpatient Encounter [id number] [id number] SHELLI DAVIES 03/21 [facility] Outpatient Encounter [id number] [id number] LESLIE VELÁZQUEZ 04/05 [facility] OFF/OP CNSLTJ NEW/EST LOW 30 [id number] [id number] Diagnos is: ICD-10- CM M79.642 Pain in left hand LO MORE 04/10 [facility] Outpatient Encounter [id number] [id number] 04/11 [facility] Outpatient Encounter [id number] [id number] 04/24 [facility] [place] [facility] OFFICE O/P NEW HI 60 MIN 54352-8.58 [id number] Diagnos is: ICD-10- CM F43.12 Post-tr aumatic stress disorde r, chronic IBAN HARO C 04/25 [facility] [place] [facility] Outpatient Encounter [id number] [id number] IBAN HARO C 04/25 [facility] Outpatient Encounter [id number] [id number] ADILSON HUDSON 04/25 [facility] Outpatient Encounter [id number] [id number] 04/27 [facility] Outpatient Encounter [id number] [id number] 05/02 [facility] Outpatient Encounter [id number] [id number] 05/02 [facility] Outpatient Encounter [id number] [id number] SMITHA RAYMUNDO 05/05 [facility] OFF/OP EST MAY X REQ PHY/QHP [id number] [id number] Diagnos is: ICD-10- CM E83.110 Heredit trudy hemochr JUAN CARLOS Whitaker 05/08 [facility] OFFICE O/P EST HI 40 MIN [id number] [id number] Diagnos is: ICD-10- CM E83.110 Heredit trudy hemochr nathalieatosi s YESENIA DENTON LSAMMA 05/12 [facility] Outpatient Encounter [id number] [id number] 05/12 [facility] Outpatient Encounter [id number] [id number] 05/12 [facility] PHLEBOTOMY [id number] [id number] Diagnos is: ICD-10- CM E83.110 Heredit trudy adame s ABIGAIL MERRILL 05/12 [facility] [place] [facility] SYNCH AUDIO-VIDE O EST LOW 20 [id number] [id number] Diagnos is: ICD-10- CM F43.12 Post-tr aumatic stress disorde r, chronic ESTRELLITA,IBAN CONN C 06/09 [facility] [place] [facility] Outpatient Encounter [id number] [id number] 06/09 [facility] Outpatient Encounter [id number] [id number] 06/09 [facility] OFFICE O/P EST MOD 30 MIN [id number] [id number] Diagnos is: ICD-10- CM K21.9 Gastro- esophag eal reflux disease without esophag itis CARMELO GOVEA S 06/21 [facility] Outpatient Encounter [id number] [id number] 06/25 [facility] Outpatient Encounter [id number] [id number] Diagnos is: ICD-10- CM K21.9 Gastro- esophag eal reflux disease without esophag itis Tamera CUMMINGS YUMIKO 06/27 [facility] PH1 ASSMT&MGMT NQHP 5-10 [id number] [id number] 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 [place] SYNCH AUDIO-VIDE O EST LOW 20 51430-4.58 [id number] Diagnos is: ICD-10- CM F43.12 Post-tr aumatic stress disorde r, chronic IBAN HARO C 07/21 [facility] [place] [facility] Outpatient Encounter [id number] [id number] IBAN HARO NIFER C 07/21 [facility] Outpatient Encounter [id number] [id number] OHJUAN CARLOS HANSEN 08/01 [facility] POS AIRWAY PRESSURE CPAP [id number] [id number] Diagnos is: ICD-10- CM G47.33 Obstruc tive sleep apnea (adult) (pediat sophie) MOOSE OCASIO MD 08[facility] OFF[facility] O/P EST MOD 30 MIN [id number] [id number] Diagnos is: ICD-10- CM I10 Essenti al (primar y) hyperte AZEEM Cope 08/25 [facility] Outpatient Encounter [id number] [id number] 08/29 [facility] OFFICE O/P EST HI 40 MIN [id number] [id number] 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 [place] LSAMMA 08/30 [facility] Outpatient Encounter [id number] [id number] 08/30 [facility] PHLEBOTOMY 07191-4.65 [id number] 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 [place] PALMER 08/30 [facility] Outpatient Encounter [id number] [id number] 09/01 [facility] OFFICE O/P NEW LOW 30 MIN 24884-7.65 [id number] Diagnos is: ICD-10- CM 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 MARGARITO Lobo 09/19 [facility] OFFICE O/P EST MOD 30 MIN 49140-5.65 [id number] Diagnos is: ICD-10- CM K21.9 Gastro- esophag eal reflux disease without esophag itis CARMELO GOVEA S 11/01 [facility] PH1 ASSMT&MGMT NQHP 5-10 [id number] [id number] Diagnos is: ICD-10- CM M79.641 Pain in right hand TE HILTON ANDREE 12/05 [facility] PH1 ASSMT&MGMT NQHP 5-10 03950-7.65 [id number] 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 JUAN CARLOS CASIANO 12/06 [facility] OFFICE O/P EST MOD 30 MIN 78848-7.65 [id number] 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 YESENIA DENTON LSAMMA 12/20 [facility] PHLEBOTOMY 39920-0.37 [id number] 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 Procedure Procedure Type Code Date Perfomer Comments Verdezyne e Audiometry Group Testing Audiometry Group Testing 87739 06/08/2012 MEE GONZALEZ [facility] Visual Function Screening Visual Function Screening 68418 07/08/2011 LIANA STINSON [facility] Audiometry Group Testing Audiometry Group Testing 26837 07/08/2011 TESSA LANGSTON [facility] Psychiatric Evaluation Comprehensive Examination Psychiatric Evaluation Comprehensive Examination 51536 ZAY EVANGELISTA [facility] Social History Combined list of available smoking, tobacco, and other social history from Department of Defense and Veterans Affairs facilities. Social History Type Response Date Comment Sour e Tobacco smoking status [facility]-TOBACCO USE FORMER CIGARETTES 08/25/2024 [facility] History of tobacco use [facility] NEVER USED OTHER TYPE 08/25/2024 [facility] History of tobacco use VA-TOBACCO NEVER USED 06/15/2023 [facility] History of tobacco use VA-TOBACCO NEVER USED 05/06/2022 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 History of tobacco use VA-TOBACCO USER EVERY DAY 03/09/2018 [facility] History of tobacco use TOBACCO OFFERRED PT MEDS (PROVIDER) 03/28/2008 [facility] History of tobacco use CURRENT TOBACCO USER 02/26/2006 [facility] This section is an empty social history section. [facility] Plan of Care List of future care activities from [facility] facilities. Additional future care activities may be listed in the Assessment and Plan section. Date/Time Care Activity Care Activity Detail [place] ty 02/05/2025 AMBULATORY - SURGERY AMBULATORY - SURGERY [facility]
[2024-12-22] MEDS: LACTATED RINGERS 1,000 ML 999 ML IV CONT (21:49)
[2024-12-22 21:51] VITALS: BP 147/103; PULSE 98; RESP 13; O2SAT 97
--- NOTE | 2024-12-22 22:21 | ECG_ITS ---
Test Date: 2024-12-22 18:49:48 Measurements Intervals [place] Rate: 117 P: 44 MT: 152 QRS: 67 QRSD: 97 T: -7 QT: 310 QTc: 433 Interpretive Statements SINUS TACHYCARDIA POSSIBLE ANTERIOR MYOCARDIAL INFARCTION , OF INDETERMINATE AGE BORDERLINE ST-T WAVE ABNORMALITY- INFERIOR LEADS ABNORMAL ECG Compared to ECG 10/24/2023 16:27:17 HEART RATE HAS INCREASED Electronically Signed On 12-23-2024 07:38:06 CDT by Manuel Thakur D.O.
[2024-12-22 23:15] LABS: Troponin I < 0.012 ng/mL (0.000-0.034)
[2024-12-22 23:53] VITALS: BP 141/99; PULSE 91; RESP 15; O2SAT 99
[2024-12-22 23:54] VITALS: BP 141/99; PULSE 91; RESP 15; O2SAT 99
--- NOTE | 2024-12-23 00:15 | ED_ITS ---
HPI - Chest Pain General Chief Complaint: Chest Pain Stated Complaint: chest pain Time Seen by Provider: 12/22/24 19:00 History of Present Illness HPI narrative: Patient presenting here with chest pain, he has had episodes like this in the past, which have been attributed to stress he has been undergoing a lot of stress recently also. He has noticed his blood pressure seems higher than usual, he has been taking all his medications as prescribed. Started about an hour prior to arrival here. Also associated with some shortness of breath. Related Data Home Medications ?Medication ?Instructions ?Recorded ?Confirmed ?Last Taken ?Type aspirin 81 mg tablet,delayed 81 mg PO DAILY 06/22/19 06/22/19 06/20/19 21:00 History release (Adult Low Dose Aspirin) bupropion HCl 150 mg 24 hr tablet, 450 mg PO DAILY 06/22/19 06/22/19 06/21/19 History extended release fluticasone propionate 50 1 spray intranasal BID 06/22/19 06/22/19 06/21/19 History mcg/actuation nasal spray,suspension hydroxyzine HCl 25 mg tablet 25 mg PO DAILY ANXIETY 06/22/19 06/22/19 06/21/19 09:00 History hydroxyzine HCl 25 mg tablet 25 mg PO TIDHS PRN Anxiety 06/22/19 06/22/19 06/21/19 History olanzapine 10 mg tablet 2.5 mg PO HS ptsd 06/22/19 06/22/19 06/20/19 21:00 History Allergies Allergy/AdvReac Type Severity Reaction Status Date / Time No Known Allergies Allergy Verified 11/22/23 20:37 Review of Systems 2 Review of Systems: All systems reviewed & are unremarkable except as noted in HPI and below PMFSH Past Medical History Medical History Allergies Hyperlipidemia Hypertension PTSD (post-traumatic stress disorder) Surgical History Surgical History No significant past surgical history reports left hand/left finger injury Family History Family History Mother Family history of thyroid disease Hypertension Anxiety Father Family history of cardiac disorder aortic valve replacement Sibling Anxiety Social History Social History Social History: Patient is . 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 He smoked 1/2 to 2 packs of cigarettes daily between ages of [age]. Subsequently he did chew tobacco quitting 2 years ago and restarting and recently quitting again. He does report drinking either beer or whiskey 2-3 times per week. He is a full code. He does have 3 small children. 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 EYES: EOMI, conjunctiva normal ENT: Hearing grossly intact LUNGS: Nonlabored breathing. Clear to auscultation bilaterally HEART: Slightly tachycardic, normal radial and DP pulses bilaterally ABD: [Soft], [nontender to palpation] EXT: Normal range of motion SKIN: [No rashes or lesions.] NEURO: [Alert and oriented x 3. No gross focal sensory or strength deficits.] PSYCH: Normal affect Course Vital Signs Vital signs: Vital Signs Temperature 97.9 F 12/22/24 19:32 Pulse Rate 107 H 12/22/24 19:32 Respiratory Rate 13 12/22/24 19:32 Blood Pressure 155/102 H 12/22/24 19:32 Pulse Oximetry 97 12/22/24 19:32 Oxygen Delivery Room Air 12/22/24 19:32 Temperature 97.9 F 12/22/24 19:32 Pulse Rate 91 12/22/24 23:54 Respiratory Rate 15 12/22/24 23:54 Blood Pressure 141/99 H 12/22/24 23:54 Pulse Oximetry 99 12/22/24 23:54 Oxygen Delivery Room Air 12/22/24 19:43 MDM - Chest Pain MDM Narrative Medical decision making narrative: ED COURSE AND MEDICAL DECISION MAKIN-year-old male presenting with chest pain. EKG done in triage negative for acute ischemic changes. Cardiac workup is initiated. EKG: Performed in triage and interpreted by me. Normal sinus rhythm. Rate 91. Normal axis. CT normal. QRS duration normal. QTc normal. No pathologic Q waves. No ST segment elevation or depression to suggest acute ischemia. He does have a slight T-wave inversion in lead 3 however I did see that it is present on his last EKG from a year ago. No RV strain pattern. HEART score is 0 with no acute ischemic changes on EKG and negative troponin making ACS unlikely. Wells low risk with negative D-dimer making PE unlikely. Presentation not consistent with dissection or aneurysm without radiation of pain or pulse deficits. CXR negative for mediastinal widening. No abdominal pain or signs of sepsis that would be concerning for esophageal perforation or mediastinitis. No cardiomegaly or JVD to suggest pericardial effusion/tamponade. HEART Score: [0]. (Risk of major adverse cardiac events over 6 weeks: Score of 0-3 is low risk <2% ; Score of 4-6 is moderate risk ~12-15%; Score of 7-12 is high risk ~50%). - History - [0]. (Not suspicious 0; moderately suspicious 1; highly suspicious 2). - EKG - [0]. (No ST changes 0; non-specific ST/T changes 1; ST depression 2). - Age - [0]. (<45 = 0; 46-65 = 1; >65 = 2). - Risk factors - [0]. (0 factors = 0; 1-2 factors = 1; >2 factors = 2). - Troponin - [0]. (Normal = 0; Indeterminate = 1; High = 2). He is given a dose of Protonix, Ativan, fluids. On repeat evaluation just prior to discharge, the patient is no acute distress. His symptoms have completely resolved. I had a long discussion with the patient and with shared decision making, [he] is comfortable with outpatient management. [He] was given clear return instructions by myself in person as well as on discharge paperwork. Lab Data 12/22/24 19:21 08/01/25 19:21 Labs: Lab Results 12/22/24 12/22/24 Range/Units 19:21 22:40 WBC 8.0 (4.5-10.0) K/mm3 RBC 5.22 (4.6-6.20) M/mm3 Hgb 16.4 (14.0-18.0) g/dL Hct 47.7 (42.0-52.0) % MCV 91.4 (80-100) fl MCH 31.4 (26-34) pg MCHC 34.4 (32-36) g/dl RDW 12.9 (11.5-14.5) % Plt Count 215 (150-375) k/mm3 MPV 11.7 H (7.4-10.4) fl Immature Gran % (Auto) 0.5 (0-0.5) % Neut % (Auto) 51.8 (45.5-73.1) % Lymph % (Auto) 32.8 (18.3-44.2) % Gove % (Auto) 9.0 H (2.6-8.5) % Eos % (Auto) 5.0 H (0-4.4) % Baso % (Auto) 0.9 (0.2-1.2) % Lymph # (Auto) 2.62 (0.9-3.2) K/mm3 Gove # (Auto) 0.7 H (0.1-0.6) K/mm3 Eos # (Auto) 0.4 H (0-0.3) K/mm3 Baso # (Auto) 0.1 (0.0-0.1) K/mm3 Abs Immat Gran (auto) 0.04 H (0.00-0.031) K/mm3 Absolute Neuts (auto) 4.1 (1.3-6.7) K/mm3 Absolute Nucleated RBC 0.000 (0.0-0.012) K/mm3 Nucleated RBC % 0.0 (0.0-0.2) % PT 13.0 (11.1-14.7) Seconds INR 1.0 APTT 26.5 (22.3-36.8) Seconds D-Dimer 0.28 (<0.48) ug/mL Sodium 132 L (137-145) mmol/L Potassium 3.4 (3.4-5.0) mmol/L Chloride 105 (98-107) mmol/L Carbon Dioxide 22 (22-30) mmol/L Anion Gap 5 (4-12) mmol/L BUN 13 (9-20) mg/dL Creatinine 1.13 (0.7-1.3) mg/dL Estim Creat Clear Calc 91 ml/min Estimated GFR > 60 (59 - ) Glucose 144 H (65-110) mg/dL Calcium 9.1 (8.4-10.2) mg/dL Total Bilirubin 0.5 (0.2-1.3) mg/dL AST 48 (17-59) U/L ALT 80 H (6-50) U/L Alkaline Phosphatase 80 (38-126) U/L Troponin I < 0.012 < 0.012 (0.000-0.034) ng/mL Total Protein 7.5 (6.3-8.2) g/dL Albumin 4.5 (3.5-5.1) g/dL Lipase 244 (23-300) U/L Discharge Plan Discharge Clinical Impression: Atypical chest pain Patient Disposition: Home Condition: Stable Instructions: Chest Pain (ED) Additional Instructions: Please follow-up with your doctor. If your symptoms return or worsen, you can always return to the emergency room. Patient Language: Martiniquais Prescriptions: No Action hydroxyzine HCl 25 mg tablet 25 mg PO TIDHS PRN (Reason: Anxiety) bupropion HCl 150 mg tablet extended release 24 hr 450 mg PO DAILY fluticasone propionate 50 mcg/actuation spray,suspension 1 spray INTRANASAL BID olanzapine 10 mg tablet 2.5 mg PO HS aspirin [Adult Low Dose Aspirin] 81 mg Tablet,Delayed Release (Dr/Ec) 81 mg PO DAILY hydroxyzine HCl 25 mg tablet 25 mg PO DAILY ibuprofen 600 mg Tablet 600 mg PO Q6H PRN (Reason: Pain) Qty: 30 0RF amoxicillin-pot clavulanate [Augmentin] 875-125 mg tablet 1 tablet PO Q12H 9 Days Qty: 18 0RF ibuprofen [IBU] 600 mg tablet 600 mg PO Q6H PRN (Reason: pain) Qty: 20 0RF naproxen [Naprosyn] 500 mg tablet 500 mg PO BID Qty: 20 0RF cyclobenzaprine 10 mg tablet 10 mg PO TID Qty: 14 0RF pantoprazole [Protonix] 40 mg tablet,delayed release (DR/EC) 40 mg PO QAM 30 Days Qty: 30 0RF Follow-up/Referrals: [facility] [Primary Care Provider] -
== END 2024-12-22 23:55 | disposition home or self-care (01) ==
PROVIDERS: Emergency Provider Emergency Medicine
DX: R07.89 Other chest pain (principal); I10 Essential (primary) hypertension; E78.5 Hyperlipidemia, unspecified; F43.10 Post-traumatic stress disorder, unspecified; Z87.891 Personal history of nicotine dependence; Z79.82 Long term (current) use of aspirin; Z79.899 Other long term (current) drug therapy; R94.31 Abnormal electrocardiogram [ECG] [EKG]; R00.0 Tachycardia, unspecified
CPT/HCPCS: 36415; 71046; 80053; 83690; 84484; 85025; 85380; 85610; 85730; 93005; 96361; 96374; 96375; 99284; J2060; J2470; J7120